=== PATIENT | male | born 1945 | race Caucasian/White ===

== ENCOUNTER → 2017-11-02 12:14 | Outpatient (CLI) | payer MEDICARE, SELFPAY | PROVIDERS: PCP Family Medicine; Visit Provider Physician Assistant | DX: R07.89 Other chest pain (principal) | CPT/HCPCS: 93005 ==

== ENCOUNTER → 2017-11-03 09:16 | Outpatient (CLI) | payer MEDICARE, SELFPAY ==
[2017-11-03 11:18] LABS: Alanine Aminotransferase 38 U/L (12-78); Albumin Level 3.8 gm/dL (3.4-5.0); Albumin/Globulin Ratio 1.2 (1.1-1.8); Alkaline Phosphatase 68 U/L (46-116); Anion Gap 12.7 mEq/L (5-15); Aspartate Amino Transferase 17 U/L (15-37); Bilirubin,Total 0.2 mg/dL (0.2-1.0); Blood Urea Nitrogen 22 mg/dL (7-18); Calcium 8.9 mg/dL (8.5-10.1); Carbon Dioxide 27 mmol/L (21.0-32.0); Chloride 104 mmol/L (98-107); Creatinine,Serum 1.04 mg/dL (0.70-1.30); Estimated Glomerular Filt Rate > 60 ml/min (>60); GFR (African American) > 60 ML/MIN (>60); Globulin 3.1 gm/dl (1.3-3.2); Glucose 103 mg/dL (74-106); Potassium 4.7 mmoL/L (3.5-5.1); Sodium 139 mmol/L (136-145); Total Protein,Serum 6.9 gm/dL (6.4-8.2)
[2017-11-03 14:06] LABS: Chol/HDL Ratio 5.4 (1-3.5); Cholesterol 172 mg/dL (140-200); HDL Cholesterol 32 mg/dL (27-67)
[2017-11-03 14:11] LABS: Triglycerides 422 mg/dL (30-200)
== END ==
PROVIDERS: PCP Physician Assistant; Visit Provider Physician Assistant
DX: E78.5 Hyperlipidemia, unspecified (principal)
CPT/HCPCS: 36415; 80053; 80061; 84443

== ENCOUNTER → 2017-11-05 12:34 | Outpatient (CLI) | payer MEDICARE, SELFPAY ==
--- NOTE | 2017-11-05 12:40 | CA_ITS ---
PROCEDURE: 2-D M-mode and color Doppler study INDICATIONS FOR THE TEST: Chest pain COPD Heart Murmur Tobacco Smoking Palpitations Fatigue Syncope Edema HypertensionXDiabetes Mellitus Rheumatic Fever SOB BAIG ObesityXHyperlipidemiaX Family History HD Additional History CM,MR PATIENT INFORMATION HEIGHT: 68 WEIGHT:232 GENDER: Male B/P:135/82 2-D/M-MODE INTERPRETATION: 2-D MEASUREMENTS OBSERVED VALUES IN CMS Right Ventricular Dimension (RVDd) 2.3 Interventricular Septum (Thickness)(IVsd) .9 Left Ventricular Internal Dimensions(LVIDd) 7.6 Left Ventricular Posterior Wall (Thickness)(LVPWd) .8 Aortic Root 3.7 Aortic Cusp Separation 1.7 Left Atrial Dimensions (LAD) 4.0 2D 1. Left atrium is mildly enlarged, left ventricle is normal size, there is mild qualitative concentric left ventricular hypertrophy present, visually estimated ejection fraction approximately 30%, there is marked abnormal septal motion. Left ventricle is globally hypokinetic. 2. The right atrium and right ventricle are normal size and contractility. 3. The aortic valve is minimally thickened and calcified leaflet continue to display good mobility. 4. The mitral and tricuspid valve leaflets are minimally thickened. 5. The pulmonic valve is poorly visualized. 6. No significant pericardial effusion noted. DOPPLER INTERROGATION: Doppler interrogation of the aortic, mitral and tricuspid valve reveals presence of mildly increased velocities across the aortic valve does not represent significant aortic stenosis, there is no aortic insufficiency, mild mitral and tricuspid regurgitation noted, tricuspid and jet velocity insufficient for cannulation of the right ventricular systolic pressure, grade 1 diastolic dysfunction seen without tissue Doppler evidence of raised left atrial pressure. CONCLUSION: 1. Mildly enlarged left atrium, normal left ventricular size, mild qualitative concentric left ventricular hypertrophy, visually estimated ejection fraction 30%, left ventricle is globally hypokinetic, there is marked abnormal septal motion. 2. Mild mitral and tricuspid regurgitation, tricuspid and jet velocity insufficient for acquisition of the right ventricular systolic pressure, grade 1 diastolic dysfunction seen without tissue Doppler evidence of raised left atrial pressure. 3. No significant pericardial effusion noted.
== END ==
PROVIDERS: PCP Family Medicine; Visit Provider Physician Assistant
DX: I34.0 Nonrheumatic mitral (valve) insufficiency; I42.8 Other cardiomyopathies
CPT/HCPCS: 93306

== ENCOUNTER → 2018-02-03 15:19 | Outpatient (CLI) | payer MEDICARE, SELFPAY ==
[2018-02-03 15:48] LABS: Basophils # 0.1 K/mm3 (0-0.2); Basophils % 0.4 % (0.1-2.0); Eosinophils # 0.1 K/mm3 (0.0-0.4); Eosinophils % 0.9 % (0.1-12.0); Hematocrit 41.8 % (42.0-52.0); Hemoglobin 13.6 g/dL (14.1-18.0); Lymphocytes % 21.5 K/mm3 (10-50); Mean Corpuscular HGB Conc 32.5 g/dL (31.8-35.4); Mean Corpuscular Hemoglobin 27.9 pg (27.0-31.2); Mean Corpuscular Volume 85.7 fl (80-94); Mean Platelet Volume 6.8 fl (7.4-10.4); Monocytes % 7.2 % (1.7-9.3); Neutrophils # 9.8 K/mm3 (1.8-7.8); Neutrophils % 69.9 % (37.0-80.0); Platelet Count 413 K/mm3 (142-424); Red Blood Count 4.87 M/mm3 (4.60-6.20); Red Cell Distribution Width 13.7 % (11.5-17.5); White Blood Count 13.9 K/mm3 (4.8-10.8)
[2018-02-03 18:28] LABS: Anion Gap 18.5 mEq/L (5-15); Blood Urea Nitrogen 26 mg/dL (7-18); Carbon Dioxide 21 mmol/L (21.0-32.0); Chloride 103 mmol/L (98-107); Creatinine,Serum 0.96 mg/dL (0.70-1.30); Estimated Glomerular Filt Rate 77 ml/min (>60); GFR (African American) 93 ML/MIN (>60); Glucose 113 mg/dL (74-106); Potassium 4.5 mmoL/L (3.5-5.1); Sodium 138 mmol/L (136-145)
== END ==
PROVIDERS: PCP Family Medicine; Visit Provider Otolaryngology
DX: Z01.818 Encounter for other preprocedural examination (principal); H72.91 Unspecified perforation of tympanic membrane, right ear; H65.06 Acute serous otitis media, recurrent, bilateral
CPT/HCPCS: 36415; 80048; 85025; 93005

== ENCOUNTER → 2019-05-29 09:47 | Outpatient (CLI) | payer MEDICARE, SELFPAY ==
--- NOTE | 2019-05-29 09:50 | CI_ITS ---
Cerebrovascular Exam Indications: Follow-up carotid 433.10. IMPRESSIONS 1. The bilateral vertebral arteries are patent with normal antegrade flow. 2. Study suggests less than 20% stenosis involving the right internal carotid artery. 3. Study suggests 20-49% stenosis involving the left internal carotid artery. History: Risk factors: Hypertension. Hyperlipidemia. Carotid duplex study. Complete study and Doppler flow study including spectral analysis, color and forte scale imaging. Height: Height: 172.7cm. Height: 68in. Weight: Weight: 108.4kg. Weight: 238.5lb. Body mass index: BMI: 36.3kg/m^2. Body surface area: BSA: 2.32m^2. Location: Vascular laboratory. Patient status: Outpatient. Tables: Arterial flow: + +--------+--------+ Location V sys V ed + +--------+--------+ Right CCA - proximal 82.5cm/s 15.7cm/s + +--------+--------+ Right CCA - distal 91.9cm/s 25.9cm/s + +--------+--------+ Right ECA 111cm/s 18cm/s + +--------+--------+ Right ICA - proximal 62.9cm/s 22.8cm/s + +--------+--------+ Right ICA - mid 62.1cm/s 33cm/s + +--------+--------+ Right ICA - distal 74.6cm/s 26.7cm/s + +--------+--------+ Right vertebral 34.8cm/s 14.8cm/s + +--------+--------+ Left CCA - proximal 90.4cm/s 24.4cm/s + +--------+--------+ Left CCA - distal 83cm/s 24.2cm/s + +--------+--------+ Left ECA 87.7cm/s 18.9cm/s + +--------+--------+ Left ICA - proximal 46.4cm/s 16.4cm/s + +--------+--------+ Left ICA - mid 68.7cm/s 28.2cm/s + +--------+--------+ Left ICA - distal 80.3cm/s 31.4cm/s + +--------+--------+ Left vertebral 49.7cm/s 20.1cm/s + +--------+--------+ Velocity ratios: + + + + + + Right, V sys Right, V ed Left, V sys Left, V ed + + + + + + Max ICA/dist CCA 0.81 1.27 0.97 1.3 + + + + + + (Report amended ) Electronically signed by: Clive Magana [id number]
--- NOTE | 2019-05-29 09:50 | CA_ITS ---
PROCEDURE: 2-D M-mode and color Doppler study INDICATIONS FOR THE TEST: Chest pain COPD Heart Murmur+ Tobacco SmokingEX Palpitations Fatigue+ Syncope Edema Hypertension+Diabetes Mellitus Rheumatic Fever SOB+BAIG Obesity+Hyperlipidemia+ Family History HD Additional History ABN EKG PATIENT INFORMATION HEIGHT: 68 WEIGHT:239 GENDER: Male B/P:112/69 2-D/M-MODE INTERPRETATION: 2-D MEASUREMENTS OBSERVED VALUES IN CMS Right Ventricular Dimension (RVDd) 2.5 Interventricular Septum (Thickness)(IVsd) 1.5 Left Ventricular Internal Dimensions(LVIDd) 6.0 Left Ventricular Posterior Wall (Thickness)(LVPWd) 1.1 Aortic Root 3.4 Aortic Cusp Separation 2.0 Left Atrial Dimensions (LAD) 4.5 2D 1. Left atrium is moderately enlarged, left ventricle is mildly dilated, mild concentric left ventricular hypertrophy, there is moderate to severe reduction in left ventricular systolic function, visually estimated ejection fraction approximately 35%, left ventricle is globally hypokinetic. 2. The right atrium and right ventricle are normal size and contractility. 3. The aortic valve is minimally thickened and fibrosed. 4. The mitral and tricuspid valve leaflets are minimally thickened. 5. The pulmonic valve is poorly visualized. 6. No significant pericardial effusion noted. DOPPLER INTERROGATION: Doppler interrogation of the aortic, mitral and tricuspid valvular presence of mild mitral and tricuspid regurgitation, tricuspid regurgitation jet velocity is inadequate for calculation of the right ventricular systolic pressure, grade 1 diastolic dysfunction seen with tissue Doppler evidence of raised left atrial pressure. CONCLUSION: 1. Moderately enlarged left atrium, dilated left ventricle, mild concentric left ventricular hypertrophy, moderate to severe reduction left ventricular systolic function, visually estimated ejection fraction 35% ventricle is globally hypokinetic, there is abnormal septal motion. Grade 1 diastolic dysfunction seen with tissue Doppler evidence of raised left atrial pressure. 2. Mild mitral and tricuspid regurgitation. 3. No significant pericardial effusion noted.
== END ==
PROVIDERS: PCP Family Medicine; Visit Provider Internal Medicine Cardiovascular Disease
DX: R09.89 Other specified symptoms and signs involving the circulatory and respiratory systems (principal); E66.9 Obesity, unspecified; E78.5 Hyperlipidemia, unspecified; I10 Essential (primary) hypertension; R94.31 Abnormal electrocardiogram [ECG] [EKG]; Z87.891 Personal history of nicotine dependence
CPT/HCPCS: 93306; 93880

== ENCOUNTER → 2019-06-19 12:33 | Outpatient (CLI) | payer MEDICARE, SELFPAY ==
--- NOTE | 2019-06-19 12:35 | NM_ITS ---
PROCEDURE: NM MUGA CLINICAL INDICATION: lv dysfunction ef 35% COMPARISON: No exams were available for comparison FINDINGS: Dose 24.8 mCi technetium sodium pertechnetate Gated images performed in the left anterior oblique position. There is global hypokinesia with an ejection fraction of 43 percent IMPRESSION: Global hypokinesia with an EF of 43 percent Dictated by: Clive Magana MD 06/21/2019 18:23 Signed by: <Electronically signed by Clive Magana MD in [place]> 06/21/2019 18:23
--- NOTE | 2019-06-19 13:56 | HMH.ITSHM ---
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 []POTASSIUM OMEPRAZOLE MONTELUKAST LISINOPRIL FUROSEMIDE FLUTICASONE ASA
== END ==
PROVIDERS: PCP Family Medicine; Visit Provider Internal Medicine
DX: I42.8 Other cardiomyopathies (principal); I51.89 Other ill-defined heart diseases; R06.01 Orthopnea; R06.02 Shortness of breath; R93.1 Abnormal findings on diagnostic imaging of heart and coronary circulation
CPT/HCPCS: 78473; A9512; A9560

== ENCOUNTER → 2019-06-23 08:00 | Outpatient (CLI) | payer MEDICARE, SELFPAY ==
[2019-06-23 10:39] LABS: Anion Gap 11.6 mEq/L (5-15); Blood Urea Nitrogen 26 mg/dL (7-18); Calcium 9.2 mg/dL (8.5-10.1); Carbon Dioxide 28 mmol/L (21.0-32.0); Chloride 104 mmol/L (98-107); Creatinine,Serum 1.31 mg/dL (0.70-1.30); Estimated Glomerular Filt Rate 53 ml/min (>60); GFR (African American) 65 ML/MIN (>60); Glucose 122 mg/dL (74-106); Potassium 4.6 mmoL/L (3.5-5.1); Sodium 139 mmol/L (136-145)
== END ==
PROVIDERS: Visit Provider Internal Medicine Cardiovascular Disease
DX: I42.8 Other cardiomyopathies (principal); I51.89 Other ill-defined heart diseases; R06.00 Dyspnea, unspecified; R06.01 Orthopnea; R93.1 Abnormal findings on diagnostic imaging of heart and coronary circulation
CPT/HCPCS: 36415; 80048; 83880

== ENCOUNTER → 2019-07-17 08:57 | Outpatient (CLI) | payer MEDICARE, SELFPAY ==
[2019-07-17 10:42] LABS: Anion Gap 12.7 mEq/L (5-15); Blood Urea Nitrogen 29 mg/dL (7-18); Calcium 9.1 mg/dL (8.5-10.1); Carbon Dioxide 29 mmol/L (21.0-32.0); Chloride 101 mmol/L (98-107); Estimated Glomerular Filt Rate 54 ml/min (>60); GFR (African American) 65 ML/MIN (>60); Glucose 108 mg/dL (74-106); Sodium 138 mmol/L (136-145)
[2019-07-17 10:46] LABS: Potassium 4.7 mmoL/L (3.5-5.1)
== END ==
PROVIDERS: Visit Provider Internal Medicine Cardiovascular Disease
DX: I42.8 Other cardiomyopathies (principal); I51.89 Other ill-defined heart diseases; I65.29 Occlusion and stenosis of unspecified carotid artery; R06.00 Dyspnea, unspecified; R93.1 Abnormal findings on diagnostic imaging of heart and coronary circulation
CPT/HCPCS: 36415; 80048

== ENCOUNTER → 2019-08-04 11:53 | Outpatient (CLI) | payer MEDICARE, SELFPAY ==
[2019-08-04 14:03] LABS: Anion Gap 14.2 mEq/L (5-15); Blood Urea Nitrogen 28 mg/dL (7-18); Calcium 8.6 mg/dL (8.5-10.1); Carbon Dioxide 26 mmol/L (21.0-32.0); Chloride 101 mmol/L (98-107); Creatinine,Serum 1.26 mg/dL (0.70-1.30); Estimated Glomerular Filt Rate 56 ml/min (>60); GFR (African American) 68 ML/MIN (>60); Glucose 122 mg/dL (74-106); Potassium 4.2 mmoL/L (3.5-5.1); Sodium 137 mmol/L (136-145)
== END ==
PROVIDERS: Physician Assistant; Visit Provider Internal Medicine Cardiovascular Disease
DX: I42.8 Other cardiomyopathies (principal); Z51.81 Encounter for therapeutic drug level monitoring; Z79.899 Other long term (current) drug therapy
CPT/HCPCS: 36415; 80048

== ENCOUNTER → 2019-12-21 11:25 | Outpatient (CLI) | payer MEDICARE, SELFPAY ==
--- NOTE | 2019-12-21 11:32 | XR_ITS ---
PROCEDURE: XR SHOULDER LT MIN 2V CLINICAL INDICATION: LT SHOULDER PAIN COMPARISON: No exams were available for comparison FINDINGS: There is no acute fracture or dislocation. Mild acromioclavicular and glenohumeral joint arthropathy is noted. IMPRESSION: Degenerative findings at the joints with no acute bone pathology. Dictated by: Kemar Zavala 12/21/2019 12:14 Electronically signed by Kemar Zavala in [place] 12/21/2019 12:14
== END ==
PROVIDERS: PCP Family Medicine; Visit Provider Family Medicine
DX: M25.512 Pain in left shoulder (principal)
CPT/HCPCS: 73030

== ENCOUNTER 2020-01-23 10:00 | Outpatient (RCR) | payer MEDICARE, SELFPAY ==
--- NOTE | 2020-01-16 10:57 | HMH.PTOPEV ---
PT Outpatient Evaluation Rehab PT Outpatient Evaluation Start: 01/16/20 09:49 Freq: Status: Active Protocol: Document 01/16/20 10:32 MISTY (Rec: 01/16/20 10:56 MISTY [id number]) Electronically Signed By Chavo Bran, PT 01/16/20 10:32 Outpatient Therapy Subjective History Subjective History Patient is a 74 year old male presenting to outpatient PT with reports of L anterior shoulder pain starting approximately 3 years ago in an accident involving B shoulder hyper extension in abduction. No previous Rx to report. Suspect possible L subscapularis tear. Most recent imaging indicates degenerative findings. Comorbidities include HTN, HLD , appendectomy, R knee scope and cholecystectomy. Chief Complaint Pain,Stiff,Weakness Symptom Type Sharp Symptoms Relieved By Rest/Positioning,OTC Meds Symptoms Aggravated By Physical Activity,Lifting Prior Functional Limitations None Current Functional Limitations Reaching,Lifting,Housework, Driving,Recreation Activity Symptom Description Constant but Variable Level of pain today (0-10) 8 Pain scale - at its best (0-10) 4 Pain scale - at its worst (0-10) 9 Shoulder/Elbow Eval Shoulder Objective Measurements Palpation Tenderness tenderness shoulder exam standard left tenderness over the bicipital tendon left shoulder exam standard Shoulder Palpation Findings Tenderness Shoulder Palpation Overall Comment L anterior shoulder/pec minor insertion Posture Shoulder Posture Sitting Position (L) Forward,(R) Forward Shoulder Posture Standing Position (L) Forward,(R) Forward Scapula Posture Sitting Position (L) Protracted,(R) Protracted Scapular Posture Standing Position (L) Protracted,(R) Protracted Shoulder ROM Left Shoulder Abduction Active Range of 82 Motion (degrees) Shoulder Abduction Passive Range of 91 Motion (degrees) Shoulder Flexion Active Range of Motion 89 (degrees) Query Text: Shoulder Flexion Passive Range of Motion 95 (degrees) Shoulder External Rotation Active Range 46 of Motion (degrees) Shoulder External Rotation Passive Range 50 of Motion (degrees) Shoulder Internal Rotation Active Range 70 of Motion (degrees) pain with active ROM shoulder exam left stand
== END 2020-01-23 10:05 | disposition home or self-care (01) ==
LOC: PT 10:00
PROVIDERS: Visit Provider Orthopaedic Surgery
DX: M25.512 Pain in left shoulder (principal)
CPT/HCPCS: 97010; 97014; 97163; G0283

== ENCOUNTER → 2020-03-01 09:20 | Outpatient (CLI) | payer MEDICARE, SELFPAY ==
--- NOTE | 2020-03-01 09:25 | XR_ITS ---
PROCEDURE: XR SHOULDER LT MIN 2V CLINICAL INDICATION: Shoulder pain Left shoulder pain COMPARISON: XR SHOULDER LT MIN 2V from 12/21/2019 FINDINGS: There are mild osteoarthritic changes of the glenohumeral joint and acromioclavicular joint with subacromial stenosis. No fracture or dislocation. 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
== END ==
PROVIDERS: PCP Family Medicine; Visit Provider Orthopaedic Surgery
DX: M19.012 Primary osteoarthritis, left shoulder; M67.912 Unspecified disorder of synovium and tendon, left shoulder
CPT/HCPCS: 73030

== ENCOUNTER → 2020-03-08 10:55 | Outpatient (CLI) | payer MEDICARE, SELFPAY ==
--- NOTE | 2020-03-08 10:55 | MR_ITS ---
PROCEDURE: MR SHOULDER LT WO CON CLINICAL INDICATION: left shoulder pain Injury with pain with limited range of motion COMPARISON: XR SHOULDER LT MIN 2V from 03/01/2020 TECHNIQUE: Routine multiplanar multi echo sequences are performed without gadolinium enhancement. FINDINGS: There is complete tear of the supraspinatus and infraspinatus tendons with retraction of the musculotendinous fibers with severe subacromial stenosis and mild superior location of the humeral head. The subacromial space measures 3 mm. The subscapularis and teres minor tendons appear intact. There may be a SLAP tear of the anterior glenoid labrum. Bicipital tendon is in place. No obvious fracture. There is a small shoulder joint effusion. Small amount of debris is present in the shoulder joint superiorly. IMPRESSION: Complete tear of the supraspinatus and infraspinatus tendons with retraction of the musculotendinous fibers and superior location of the humeral head Possible slap tear of the glenoid labrum Dictated by: Clive Magana MD 03/11/2020 13:17 Electronically signed by Clive Magana MD in [place] 03/11/2020 13:17
== END ==
PROVIDERS: PCP Family Medicine; Visit Provider Orthopaedic Surgery
DX: M67.912 Unspecified disorder of synovium and tendon, left shoulder (principal)
CPT/HCPCS: 73221

== ENCOUNTER → 2020-03-16 09:54 | Outpatient (CLI) | payer MEDICARE, SELFPAY ==
[2020-03-16 10:02] LABS: Adenovirus,PCR Not Detected (NotDetected); Bordetella Pertussis Not Detected (NotDetected); Chlamydophila Pneumoniae, PCR Not Detected (NotDetected); Coronavirus 19, PCR Not Detected (NotDetected); Coronavirus 229E Not Detected (NotDetected); Coronavirus NL63 Not Detected (NotDetected); Coronavirus OC43 Not Detected (NotDetected); Human Metapneumovirus Not Detected (NotDetected); Influenza A, PCR Not Detected (NotDetected); Influenza AH1, 2009 Not Detected (NotDetected); Influenza AH1, PCR Not Detected (NotDetected); Influenza AH3,PCR Not Detected (NotDetected); Influenza B, PCR Not Detected (NotDetected); Mycoplasma Pneumoniae, PCR Not Detected (NotDected); Parainfluenza 1, PCR Not Detected (NotDetected); Parainfluenza 2, PCR Not Detected (NotDetected); Parainfluenza 3, PCR Not Detected (NotDetected); Parainfluenza 4, PCR Not Detected (NotDetected); Respiratory Syncytial Virus Not Detected (NotDetected); Rhinovirus/Enterovirus Not Detected (NotDetected)
[2020-03-16 12:47] LABS: Coronovirus HKU1,PCR Detected (NotDetected)
--- NOTE | 2020-03-16 19:10 | PC.NURSE ---
spoke with Dr. Dubois regarding test results, positive for coronavirus HKU
== END ==
PROVIDERS: Visit Provider Internal Medicine Gastroenterology
DX: Z01.818 Encounter for other preprocedural examination (principal)
CPT/HCPCS: 87581; 87633; 87798

== ENCOUNTER 2020-03-18 10:02 | Day surgery (SDC) | payer MEDICARE, SELFPAY ==
--- NOTE | 2020-03-14 09:09 | SUR.PREOP ---
03/13/2020--PHONE CALL MADE TO PATIENT. PATIENT UNDERSTANDS THAT LAB WORK AND COVID TESTING NEEDS TO BE COMPLETED @ 830 ON 03/16/2020. PATIENT UNDERSTANDS IF LAB WORK AND COVID-19 TESTS ARE NOT COMPLETED BY 12PM ON THAT DATE, THE SURGERY SCHEDULED WILL BE CANCELLED AND RESCHEDULED FOR ANOTHER TIME.
[2020-03-14 14:37] VITALS: BMI 36.5
[2020-03-18] VITALS (7 sets, daily range): BP systolic 115–140; BP diastolic 67–87; PULSE 70–75; RESP 16; TEMP 36.4–36.5; O2SAT 95–97
--- NOTE | 2020-03-18 11:01 | SUR.OPER ---
IV #20 RIGHT A/C INFILTRATED. IV D/C BY Jun AYOUB CRNA. NEW IV STARTED BY Jorg eL MAYNARD RN #20 LEFT HAND. INFUSING WITHOUT DIFFICULTY.
--- NOTE | 2020-03-18 11:19 | P.PCN_ITS ---
[facility] Procedure Note Procedure Note:: Upper Endoscopy Procedure Report: Esophagogastroduodenoscopy with cold biopsies and TTS balloon dilation Endoscopost: Pito Dubois II, MD Referring Physician: Pranav Juarez MD Date of Procedure: March 18, 2020 Equipment: Olympus GIF 180 standard upper endoscope Sedation: MAC sedation Indications: Mr. Saul is a 74-year-old gentleman who is here for diagnostic panendoscopy. The patient had prior bright red rectal bleeding after having a bowel movement. This is bright red in nature. The patient has had longstanding GERD and he is on omeprazole. The omeprazole helps to control his heartburn, reflux, belching and dysphagia. He still gets some intermittent dysphagia. He reports no melena, bloating, abdominal pain or weight loss. This is his first upper endoscopy. Procedure: Prior to the procedure, a history and physical exam was performed, and patient's medications and allergies were reviewed. The risks, benefits and alternatives of the sedation and procedure were discussed with the patient. All questions were answered and informed consent was obtained. The patient was brought to the procedure room. Patient identification and proposed procedure were verified by the physician and the nurse. The patient was placed in a left lateral decubitus position and the scope was passed under direct vision. Throughout the procedure, the patient's blood pressure, pulse, and oxygen saturations were monitored continuously. The upper GI endoscopy was accomplished without difficulty. The patient tolerated the procedure well. Findings: The scope was passed directly into the upper esophagus and advanced to the third portion of the duodenum. The post bulbar duodenum and duodenal bulb were normal with normal mucosa and conniventes. The scope was withdrawn through a normal duodenal bulb and pylorus into the stomach. There was some mild chronic gastritis of the body and fundus. There was an umbilicated 6 mm nodule in the antrum that was biopsied to rule out a pancreatic rest and removed by cold biopsy forceps. Biopsies were taken from the lesser curvature and body of the stomach to rule out H. pylori. Upon retroflexion there was no hiatal hernia. The scope was then withdrawn into the esophagus. There was a serrated Z line and biopsies were taken distally to rule out intestinal metaplasia. There was a mid esophageal diverticulum. There were also very faint grade 1 esophageal varices. The entire esophagus was dilated to 60 Turkish/20 mm with a TTS hydrostatic balloon. There was mild esophageal dysmotility. The remainder of the esophageal mucosa was normal. Impression: 1. Nonerosive GERD with mild esophageal dysmotility and mid esophageal diverticulum 2. Faint grade 1 esophageal varices 3. Small 5 to 6 mm gastric antral nodule (rule out pancreatic rest) 4. Mild chronic gastritis Plan: There was no etiology for the patient's rectal bleeding. I will follow-up the biopsies. I would continue PPI therapy. I will recommend liver function/hepatic fibrotic markers. I will proceed with diagnostic colonoscopy.
--- NOTE | 2020-03-18 11:37 | P.PN_ITS ---
[facility] Anesthesia Checklist - Patient Identification Patient Identification: Arm Band, Verbal (Name & ) - Structural Data Admitted From: Home Planned Operative Procedure/s: EGD/colonoscopy Consent for Planned Operative Procedure(s) Verified: Yes Verified Documents: Surgical Consent, History and Physical - NPO Status Verified Time NPO: 00:00 - Chart Verification Results Verified: None - Additional verifications Anesthesia Reactions: No Hx Blood Transfusions: No Blood Transfusion Reaction: No - Airway Assessment C-Spine Mobility Assessed: Yes TMJ Mobility Assessed: Yes Dentition: Edentulous - Neurological Assessment Level of Consciousness: Awake, Alert, Appropriate, Follows Commands Hx Seizures: No Numbness or tingling in extremities: No - Anesthesia Plan Anesthesia Risk discussed: Yes Anesthesia Plan: Verified ASA Class: III Anesthesia Type: MAC [facility] History I have reviewed the patient's past medical history: Yes Medical History: Reports:: Cardiomyopathy, Coronary Artery Disease, Gastroesophageal Reflux Disease(GERD), Hyperlipidemia, Hypertension Denies:: Cancer, Diabetes Mellitus Type 1, Diabetes Mellitus Type 2, Internal Pacemaker, MRSA, Seizures *Have you ever received a pneumonia vaccine?: Yes *Have you received a flu vaccine this season?: Yes Other Medical History: Denies: Blood Transfusion Reaction Anesthesia experience/problems:: None Laterality Cases: Right: Arthroscopy Knee, Bilateral: Myringotomy (Ear Tubes) Other Surgeries: Yes: Appendectomy, Cardiac Catheterization, Cholecystectomy, Colonoscopy. No: Pacemaker Amputation: No Fractures: No - *Social History Educational Level: Completed High School Smoking Status: Never smoker #Yrs smoked (if former smoker): 50 Alcohol Intake: current Alcohol Intake Frequency:: a few times a month Substance Use Type: denies use *Occupational Status:: retired Housing: house Household Members: none *Travel in the last 8 weeks: None Family Hx:: No significant family history
--- NOTE | 2020-03-18 11:48 | HMH.PROC ---
[facility] Procedure Note Procedure Note:: Colonoscopy Procedure Report: Colonoscopy with cold snare polypectomy and hemorrhoid band ligation Endoscopist: Pito Dubois II, MD Referring physician: Pranav Juarez MD Date of Procedure: March 18, 2020 Equipment: Olympus 180 variable stiffness pediatric colonoscope Sedation: MAC sedation Indication: Mr. Saul is a 74-year-old gentleman with more recent bright red rectal bleeding. This often occurs after having bowel movements and the blood is both in the toilet bowl (striping the stool) and on the toilet tissue. He states that this may have been in relationship to 1 of his medications (carvedilol). He reports having colonoscopy 5 years ago at which time 4 polyps were removed (Dr. Adrian Puri). He reports no abdominal pain, weight loss, change in his bowel habits or family history of colon cancer. Procedure: Prior to the procedure, a history and physical exam was performed, and patient's medications and allergies were reviewed. The risks, benefits and alternatives of the sedation and procedure were discussed with the patient. All questions were answered and informed consent was obtained. The patient was brought to the procedure room. Patient identification and proposed procedure were verified by the physician and the nurse. The patient was placed in a left lateral decubitus position and the scope was passed under direct vision. Throughout the procedure, the patient's blood pressure, pulse, and oxygen saturations were monitored continuously. The colonoscopy was accomplished without difficulty. The patient tolerated the procedure well. Findings: On digital rectal examination there was normal rectal tone. There were no external hemorrhoids. The colonoscope was introduced through the anal canal to the rectum and advanced to the cecum. The ileocecal valve and appendiceal orifice were identified. The scope was advanced a short distance into the ileum which appeared grossly normal. The scope was then withdrawn into the colon. There were 4 polyps in the ascending (3, 3, 3 and 5 mm), 5 polyps in the transverse(2, 3, 3, 5 and 5 mm) and 4 polyps in the descending (3, 4, 4 and 6 mm). All of these polyps were removed via cold snare polypectomy. There was a mosaic pattern throughout the colon suggestive of possible lymphocytic colitis. There were scattered diverticuli throughout the descending and sigmoid colon (LEFT colon). The rectum itself was normal. Upon retroflexion within the rectum there were grade 2 internal hemorrhoids. 3 columns of hemorrhoids were banded using 3 bands with excellent ligation effect. The preparation was excellent throughout with [place] Preparation Score of 9. The cecal time was 19 minutes. Impression: 1. Diminutive colonic polyps x13 2. Left-sided diverticulosis 3. Grade 2 internal hemorrhoids status post band ligation x3 Plan: I will follow-up the polyp histology and recommend repeat screening/surveillance colonoscopy again in 1 year if all of the resected polyps are adenomatous. I would strongly encourage bulk fiber supplementation or fiber bowel regimen on a long-term daily maintenance basis.
[2020-03-18 13:16] LABS: Alanine Aminotransferase 33 U/L (12-78); Albumin Level 4.7 g/dl (3.5-5.0); Alkaline Phosphatase 66 U/L (38-126); Aspartate Amino Transferase 36 U/L (17-59); Bilirubin,Indirect 0.2 mg/dL (0.0-0.9); Bilirubin,Total 0.2 mg/dl (0.2-1.3); Bilirubin,Unconjugated 0.3 mg/dL (0.0-1.1); Total Protein,Serum 7.8 g/dl (6.3-8.2)
[2020-03-20 06:04] LABS: ALT (SGPT) P5P 29 IU/L (0-55); AST (SGOT) P5P 24 IU/L (0-40); Alpha 2-Macroglobulins, Qn 151 mg/dL (110-276); Apolipoprotein A-1 103 mg/dL (101-178); Bilirubin, Total 0.3 mg/dL (0.0-1.2); Cholesterol, Total 162 mg/dL (100-199); Fibrosis Score 0.28 (0.00-0.21); GGT 41 IU/L (0-65); Glucose 101 mg/dL (65-99); Haptoglobin 171 mg/dL (34-355); Steatosis Score 0.86 (0.00-0.30); Triglycerides 423 mg/dL (0-149)
== END 2020-03-18 12:47 | disposition home or self-care (01) ==
LOC: OUTP 10:03
PROVIDERS: PCP Family Medicine; Visit Provider Internal Medicine Gastroenterology
PROC: 0DJ08ZZ Inspection of Upper Intestinal Tract, Via Natural or Artificial Opening Endoscopic (ICD-10-PCS; CPT 43235; principal; 2020-03-18 11:30)
DX: R13.10 Dysphagia, unspecified (principal); K62.5 Hemorrhage of anus and rectum; K64.1 Second degree hemorrhoids; K22.2 Esophageal obstruction; I85.00 Esophageal varices without bleeding; K22.5 Diverticulum of esophagus, acquired; K57.30 Diverticulosis of large intestine without perforation or abscess without bleeding; Z87.19 Personal history of other diseases of the digestive system; D49.0 Neoplasm of unspecified behavior of digestive system; K29.50 Unspecified chronic gastritis without bleeding; I10 Essential (primary) hypertension; I25.10 Atherosclerotic heart disease of native coronary artery without angina pectoris; K21.9 Gastro-esophageal reflux disease without esophagitis
CPT/HCPCS: 43239; 43249; 45385; 45398; 36415; 80076; 88305; 88342; C1726

== ENCOUNTER → 2020-03-22 09:53 | Outpatient (CLI) | payer MEDICARE, SELFPAY ==
[2020-03-22 11:47] LABS: Alanine Aminotransferase 29 U/L (12-78); Aspartate Amino Transferase 27 U/L (17-59); Bilirubin,Unconjugated 0.1 mg/dL (0.0-1.1)
[2020-03-22 11:48] LABS: Albumin Level 4.3 g/dl (3.5-5.0); Alkaline Phosphatase 81 U/L (38-126); Bilirubin,Direct 0.3 mg/dl (0.0-0.4); Bilirubin,Indirect 0.1 mg/dL (0.0-0.9); Bilirubin,Total 0.4 mg/dl (0.2-1.3); Chol/HDL Ratio 3.7 (1-3.5); Cholesterol 128 mg/dl (140-200); HDL Cholesterol 35 mg/dl (40-60); Total Protein,Serum 7.1 g/dl (6.3-8.2); Triglycerides 337 mg/dl (30-150); VLDL Cholesterol 67 mg/dL (0-40)
[2020-03-22 11:59] LABS: Direct LDL Cholesterol 72.12 mg/dL (100-129)
== END ==
PROVIDERS: Visit Provider Internal Medicine Cardiovascular Disease
DX: E78.2 Mixed hyperlipidemia (principal); I10 Essential (primary) hypertension; I42.8 Other cardiomyopathies; I65.23 Occlusion and stenosis of bilateral carotid arteries; R09.89 Other specified symptoms and signs involving the circulatory and respiratory systems
CPT/HCPCS: 36415; 80061; 80076

== ENCOUNTER → 2020-03-27 10:34 | Outpatient (CLI) | payer MEDICARE, SELFPAY ==
--- NOTE | 2020-03-27 10:41 | CA_ITS ---
APPROVED REPORT Criminal Investigative Agent: Marli Fernandez RVT Laterality: Bilateral Study Quality: Good Indications: Bruit, Carotid stenosis Risk Factors Hypertension: Hyperlipidemia Doppler Spectral Velocity Analysis ECA (R) 104.70/16.80 cm/s ECA (L) 100.60/17.30 cm/s dICA (R) 51.50/25.70 cm/s dICA (L) 74.60/32.30 cm/s Yariel (R) 55.40/18.50 cm/s Yariel (L) 67.90/29.40 cm/s pICA (R) 96.30/15.10 cm/s pICA (L) 66.40/19.70 cm/s dCCA (R) 85.10/23.50 cm/s dCCA (L) 76.20/28.50 cm/s pCCA (R) 113.70/22.50 cm/s pCCA (L) 97.90/24.00 cm/s Vert (R) 39.70/11.20 cm/s Vert (L) 42.50/14.60 cm/s ICA/CCA 1.13 ICA/CCA 0.98 Findings Study suggests less than 20% stenosis of the right internal cartoid artery unchanged from the 05/29/19 study. Study suggests 20-49% stenosis of the left internal cartoid artery unchanged from the 05/29/19 study. Antegrade flow seen bilateral vertebral arteries. Conclusion Study suggests less than 20% stenosis of the right internal cartoid artery unchanged from the 05/29/19 study. Study suggests 20-49% stenosis of the left internal cartoid artery unchanged from the 05/29/19 study. Antegrade flow seen bilateral vertebral arteries. Electronically signed by : Clive Magana MD 03/28/2020 16:38:56
== END ==
PROVIDERS: PCP Family Medicine; Visit Provider Internal Medicine Cardiovascular Disease
DX: E78.2 Mixed hyperlipidemia (principal); I10 Essential (primary) hypertension; I42.8 Other cardiomyopathies; I65.23 Occlusion and stenosis of bilateral carotid arteries; R09.89 Other specified symptoms and signs involving the circulatory and respiratory systems
CPT/HCPCS: 93880

== ENCOUNTER 2020-12-28 12:55 | Inpatient (IN) | payer MEDICARE, SELFPAY ==
[2020-12-28] VITALS (9 sets, daily range): BP systolic 115–145; BP diastolic 70–92; PULSE 74–87; RESP 16–22; TEMP 36.7–37.7; O2SAT 80–98; BMI 37.2; BMI 37.1
--- NOTE | 2020-12-28 13:03 | ECG_ITS ---
APPROVED REPORT Exam: Resting ECG HR:77 bpm ECG Measurements Heart Rate 77 AXES [place] 184 P -26 QRSd 156 QRS -52 QT 438 T 95 QTc 495 Conclusion Sinus rhythm with occasional premature ventricular complexes Left axis deviation Left bundle branch block Abnormal ECG Electronically signed by : Pranav Airas, 12/30/2020 06:45:52
--- NOTE | 2020-12-28 13:21 | XR_ITS ---
PROCEDURE: XR CHEST PORTABLE CLINICAL HISTORY: SOA COMPARISON: CR CXR CHEST(2 VIEWS-NOT PORTABLE) from 08/30/2014 CR CXR CHEST(2 VIEWS-NOT PORTABLE) from 01/31/2016 FINDINGS: There is cardiomegaly without failure. The lower lobes are somewhat under penetrated. There is pneumonia in the right mid and lower lung zone and possibly in the left lower lobe. No obvious effusion. The lung apices are clear. No acute bony abnormalities. IMPRESSION: Bilateral pneumonia Dictated by: Clive Magana MD 12/29/2020 07:37 Clive Magana MD in [place] 12/29/2020 07:37
[2020-12-28 13:28] LABS: Adenovirus,PCR Not Detected (NotDetected); Bordetella Pertussis Not Detected (NotDetected); Chlamydophila Pneumoniae, PCR Not Detected (NotDetected); Coronavirus 229E Not Detected (NotDetected); Coronavirus NL63 Not Detected (NotDetected); Coronavirus OC43 Not Detected (NotDetected); Coronovirus HKU1,PCR Not Detected (NotDetected); Human Metapneumovirus Not Detected (NotDetected); Influenza A, PCR Not Detected (NotDetected); Influenza AH1, 2009 Not Detected (NotDetected); Influenza AH1, PCR Not Detected (NotDetected); Influenza AH3,PCR Not Detected (NotDetected); Influenza B, PCR Not Detected (NotDetected); Mycoplasma Pneumoniae, PCR Not Detected (NotDetected); Parainfluenza 1, PCR Not Detected (NotDetected); Parainfluenza 2, PCR Not Detected (NotDetected); Parainfluenza 3, PCR Not Detected (NotDetected); Parainfluenza 4, PCR Not Detected (NotDetected); Respiratory Syncytial Virus Not Detected (NotDetected); Rhinovirus/Enterovirus Not Detected (NotDetected)
[2020-12-28 13:33] LABS: Basophils % 0.6 % (0.1-2.0); Eosinophils % 0.5 % (0.1-12.0); Hematocrit 40.3 % (42.0-52.0); Hemoglobin 13.2 g/dL (14.1-18.0); Lymphocytes # 1.6 K/mm3 (0.7-4.5); Lymphocytes % 22.9 % (10-50); Mean Corpuscular HGB Conc 32.8 g/dL (31.8-35.4); Mean Corpuscular Hemoglobin 25.7 pg (27.0-31.2); Mean Corpuscular Volume 78.2 fl (80-94); Mean Platelet Volume 6.9 fl (7.4-10.4); Monocytes # 0.7 K/mm3 (0.1-1.0); Monocytes % 9.6 % (1.7-9.3); Neutrophils # 4.5 K/mm3 (1.8-7.8); Neutrophils % 66.4 % (37.0-80.0); Platelet Count 246 K/mm3 (142-424); Red Blood Count 5.16 M/mm3 (4.60-6.20); Red Cell Distribution Width 15.9 % (11.5-17.5); White Blood Count 6.8 K/mm3 (4.8-10.8)
[2020-12-28 13:37] LABS: Anion Gap 15.9 mEq/L (5-15); Blood Urea Nitrogen 21 mg/dl (9-20); Calcium 9.1 mg/dl (8.4-10.2); Carbon Dioxide 25 mmol/L (22.0-30.0); Chloride 98 mmol/L (98-107); Creatinine Clearance Estimated 90 mL/min (50-200); Estimated Glomerular Filt Rate 65 ml/min (>60); GFR (African American) 79 ML/MIN (>60); Glucose 127 mg/dl (74-100); Potassium 3.9 mmoL/L (3.5-5.1); Sodium 135 mmol/L (136-145)
[2020-12-28 13:38] LABS: Lactic Acid 1.6 mmol/L (0.7-2.1)
[2020-12-28 13:43] LABS: C-Reactive Protein 54.2 mg/L (0-4)
[2020-12-28 13:51] LABS: Troponin I 0.03 ng/ml (0.00-0.034)
--- NOTE | 2020-12-28 13:55 | HMH.EDSOB ---
ED Disposition Clinical Impression: COVID-19 virus infection, Left bundle branch block (LBBB), Obesity (BMI 30-39.9) Respiratory failure, acute Qualifiers: Respiratory failure complication: hypoxia Qualified Code(s): J96.01 - Acute respiratory failure with hypoxia Disposition: Admitted As Inpatient Condition on Discharge: Good - Critical Care Critical Care Time: No Attestation: On 12/28/20, the high probability of a clinically significant, sudden or life threatening deterioration of the following system(s) required my full and direct attention, intervention and personal management. The time I documented below is in addition to time spent performing reported procedures but includes the following listed in this critical care notation. Medical Decision Making - Medical Records Medical records reviewed: Yes: I reviewed the patient's medical records. - Mathew Inquiry Pt receiving controlled substance: No Vital Signs: 12/28/20 12:56 12/28/20 13:26 12/28/20 14:09 Temperature 99.9 F H Temperature Source Oral Pulse Rate [Right] 78 80 86 Respiratory Rate 20 18 20 Blood Pressure [Right Arm] 143/74 H 126/83 127/86 Blood Pressure Mean [Right Arm] 97 97 99 Blood Pressure Source [Right Arm] Automatic Cuff Automatic Cuff Blood Pressure Position [Right Arm] Sitting Sitting 02 Sat by Pulse Oximetry 80 L 98 96 Oxygen Delivery Method Room Air Nasal Cannula Oxygen Flow Rate (LPM) 4 12/28/20 14:41 12/28/20 15:30 12/28/20 16:11 Temperature Temperature Source Pulse Rate [Right] 77 76 74 Respiratory Rate 20 18 20 Blood Pressure [Right Arm] 140/86 131/87 127/87 Blood Pressure Mean [Right Arm] 104 101 100 Blood Pressure Source [Right Arm] Automatic Cuff Blood Pressure Position [Right Arm] Supine 02 Sat by Pulse Oximetry 98 98 96 Oxygen Delivery Method Room Air Nasal Cannula Oxygen Flow Rate (LPM) 4 - Lab Data Lab results reviewed: Yes: I reviewed the patient's lab results. Lab Results 12/28/20 13:15: WBC 6.8, RBC 5.16, Hgb 13.2 L, Hct 40.3 L, MCV 78.2 L, MCH 25.7 L, MCHC 32.8, RDW 15.9, Plt Count 246, MPV 6.9 L, Neut % (Auto) 66.4, Lymph % (Auto) 22.9, [place] % (Auto) 9.6 H, Eos % (Auto) 0.5, Baso % (Auto) 0.6, Neut # (Auto) 4.5, Lymph # (Auto) 1.6, [place] # (Auto) 0.7, Eos # (Auto) 0.0, Baso # (Auto) 0.0, ESR 23 H 12/28/20 13:15: Sodium 135 L, Potassium 3.9, Chloride 98, Carbon Dioxide 25, Anion Gap 15.9 H, BUN 21 H, Creatinine 1.10, Estimated Creat Clear 90, Estimated GFR 65, Est GFR ( Amer) 79, Glucose 127 H, Calcium 9.1, Troponin I 0.03, C-Reactive Protein 54.2 H 12/28/20 13:15: Lactate 1.6 12/28/20 13:15: Chlamy pneumoniae PCR Not detected, Adenovirus (PCR) Not detected, B. pertussis DNA (PCR) Not detected, Coronavirus OC43 (PCR) Not detected, Coronavirus HKU1 (PCR) Not detected, Coronavirus 229E (PCR) Not detected, SARS-CoV-2 (PCR) Detected A, Coronavirus NL63 (PCR) Not detected, Human Metapneumovir PCR Not detected, Influenza A (H1) PCR Not detected, Influ A (H1N1/09) PCR Not detected, Influenza A (H3) PCR Not detected, Influenza Type A (PCR) Not detected, Influenza Type B (PCR) Not detected, M. pneumoniae (PCR) Not detected, Parainfluenza 1 (PCR) Not detected, Parainfluenza 2 (PCR) Not detected, Parainfluenza 3 (PCR) Not detected, Parainfluenza 4 (PCR) Not detected, RSV (PCR) Not detected, Entero/Rhino (PCR) Not detected 12/28/20 13:15: Sodium 133 L, Potassium 4.3, Chloride 98, Carbon Dioxide 25, Anion Gap 14.3, BUN 23 H, Creatinine 1.00, Estimated Creat Clear 99, Estimated GFR 73, Est GFR ( Amer) 88, Glucose 124 H, Calcium 9.1, Total Bilirubin 0.7, AST 38, ALT 31, Alkaline Phosphatase 75, Total Protein 7.2, Albumin 4.2, Globulin 3.0, Albumin/Globulin Ratio 1.4 Result diagrams: 12/28/20 13:15 12/28/20 13:15 Orders (Tests/Meds): ED MEDICATIONS Generic Name Dose Route Start Last Admin Trade Name Freq PRN Reason Stop Dose Admin Acetaminophen 650 mg 12/28/20 15:34 Acetaminophen 32
[2020-12-28 14:02] LABS: Erythrocyte Sedimentation Rate 23 mm/hr (0-20)
[2020-12-28 15:05] LABS: Coronavirus 19, PCR Detected (NotDetected)
[2020-12-28 15:59] LABS: Chloride 98 mmol/L (98-107); Potassium 4.3 mmoL/L (3.5-5.1); Sodium 133 mmol/L (136-145)
[2020-12-28 16:02] LABS: Alanine Aminotransferase 31 U/L (12-78); Albumin Level 4.2 g/dl (3.5-5.0); Albumin/Globulin Ratio 1.4 (1.1-1.8); Alkaline Phosphatase 75 U/L (38-126); Anion Gap 14.3 mEq/L (5-15); Aspartate Amino Transferase 38 U/L (17-59); Bilirubin,Total 0.7 mg/dl (0.2-1.3); Blood Urea Nitrogen 23 mg/dl (9-20); Calcium 9.1 mg/dl (8.4-10.2); Carbon Dioxide 25 mmol/L (22.0-30.0); Creatinine Clearance Estimated 99 mL/min (50-200); Estimated Glomerular Filt Rate 73 ml/min (>60); GFR (African American) 88 ML/MIN (>60); Glucose 124 mg/dl (74-100); Total Protein,Serum 7.2 g/dl (6.3-8.2)
--- NOTE | 2020-12-28 16:02 | PC.NURSE ---
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
[2020-12-28 18:15] LABS: Troponin I < 0.01 ng/ml (0.00-0.034)
[2020-12-28 21:03] LABS: Troponin I 0.03 ng/ml (0.00-0.034)
--- NOTE | 2020-12-28 21:16 | PC.NURSE ---
MD notified of pt not able to identify which medication he took today. MD also notified of discrepancy of medication metoprolol succinate on dec. Reported that pt became soa and desat to 83% upon ambulating to [facility] [place]. O2 increased to 6L NC temporarily while pt recovered. He is currently on 4.5 L NC. During episode pt was noted to have trigeminal PVC's. MD aware. New orders: hold Lisinopril tonight.
[2020-12-29] VITALS (14 sets, daily range): BP systolic 124–147; BP diastolic 70–78; PULSE 60–91; RESP 16–23; TEMP 36.2–36.7; O2SAT 91–95; BMI 37.0
--- NOTE | 2020-12-29 04:32 | PC.NURSE ---
No acute changes since last assessment. Pt is currently on 3.5 L O2 NC with sats ranging 92-95%. Pt gets soa and desats to low 80s with any exertion. Oxygen is titrated to 6L for faster recovery. Pt has had 550 cc output and 2 unmeasured voids. He has had 2 liquid stools this shift. He ambulates to [facility] with standby assistance and uses urinal. VS remain stable. He is currently afebrile. BBB on telemetry with PVC's. Call light within reach. No other concerns. Will continue to monitor.
[2020-12-29 06:50] LABS: Basophils % 0.7 % (0.1-2.0); Hematocrit 36.2 % (42.0-52.0); Hemoglobin 11.9 g/dL (14.1-18.0); Lymphocytes # 1.2 K/mm3 (0.7-4.5); Lymphocytes % 30.7 % (10-50); Mean Corpuscular HGB Conc 32.8 g/dL (31.8-35.4); Mean Corpuscular Hemoglobin 25.7 pg (27.0-31.2); Mean Corpuscular Volume 78.4 fl (80-94); Mean Platelet Volume 7.4 fl (7.4-10.4); Monocytes # 0.4 K/mm3 (0.1-1.0); Monocytes % 9.5 % (1.7-9.3); Neutrophils # 2.3 K/mm3 (1.8-7.8); Neutrophils % 59.1 % (37.0-80.0); Platelet Count 252 K/mm3 (142-424); Red Blood Count 4.61 M/mm3 (4.60-6.20); Red Cell Distribution Width 15.9 % (11.5-17.5); White Blood Count 3.9 K/mm3 (4.8-10.8)
[2020-12-29 06:55] LABS: Chloride 105 mmol/L (98-107); Potassium 4.3 mmoL/L (3.5-5.1); Sodium 137 mmol/L (136-145)
[2020-12-29 06:58] LABS: Anion Gap 13.3 mEq/L (5-15); Blood Urea Nitrogen 23 mg/dl (9-20); Calcium 8.9 mg/dl (8.4-10.2); Carbon Dioxide 23 mmol/L (22.0-30.0); Creatinine Clearance Estimated 98 mL/min (50-200); Estimated Glomerular Filt Rate 82 ml/min (>60); GFR (African American) 99 ML/MIN (>60); Glucose 148 mg/dl (74-100)
[2020-12-29 06:59] LABS: Magnesium 1.7 mg/dl (1.6-2.3)
--- NOTE | 2020-12-29 08:14 | HMH.HP ---
*Admission Date: 12/28/20 *Chief complaint: SOA, covid *History of present illness: Mr. Saul is a 75 yo M with Hx of HTN, heart failure with reduced ejection fraction, carotid bruits, obesity, and previous extensive smoking Hx. He presented to the ER yesterday with c/o SOA, cough, body aches for the past week with 3 days of increased SOA. On arrival he was found to be hypoxic and in respiratory distress. On Work-up he had labs, chest imaging, and respiratory swab obtained. Chest imaging positive for multifocal patchy air space disease. Respiratory panel positive for Covid-19. He has a new O2 requirement. Denies chest pain, nausea, vomiting. Admitted to medicine for further management of his Covid pneumonia. Placed in the isolation unit. On assessment this morning, patient feels a little short of breath but is very optimistic and upbeat. Denies any chest pain, confusion, headache, nausea or vomiting. Does have complaint of some diarrhea this morning. Tolerating good p.o. fluid intake. Afebrile today. Voiding independently. Has used incentive spirometer this morning, commended him on this and encouraged more aggressive pulmonary toilet. CODE STATUS discussion, patient is full code. [facility] History I have reviewed the patient's past medical history: Yes Medical History: Reports:: Cardiomyopathy, Congestive Heart Failure, Coronary Artery Disease, Gastroesophageal Reflux Disease(GERD), Hyperlipidemia, Hypertension Denies:: Cancer, Diabetes Mellitus Type 1, Diabetes Mellitus Type 2, Internal Pacemaker, MRSA, Seizures *Have you ever received a pneumonia vaccine?: Yes *Have you received a flu vaccine this season?: Yes Other Medical History: Denies: Blood Transfusion Reaction Laterality Cases: Right: Arthroscopy Knee, Bilateral: Cataract, Myringotomy (Ear Tubes), Tonsillectomy Other Surgeries: Yes: No Previous Surgery, Appendectomy, Cardiac Catheterization, Cholecystectomy, Colonoscopy. No: Pacemaker Amputation: No Fractures: No - *Social History Last grade of school completed: 7th or 8th Smoking Status: Never smoker #Yrs smoked (if former smoker): 50 Alcohol Intake: current Alcohol Intake Frequency:: a few times a week Substance Use Type: denies use *Occupational Status:: disabled Housing: house Household Members: none *Travel in the last 8 weeks: None Family Hx:: No significant family history Review of Systems - Review of Systems Review of systems:: pertinent systems reviewed and negative unless documented below (14 point review of systems performed, pertinent positives and negatives as per HPI) - *Neurologic Denies localized weakness, Denies headache(s), Denies seizure-like activity Meds Home Medications Medication Instructions Recorded Confirmed Type fluticasone propionate 50 50 mcg INTRANASAL DAILY 90 Days 01/28/18 12/28/20 History mcg/actuation nasal spray,suspension montelukast 10 mg tablet 10 mg PO DAILY 90 Days 01/28/18 12/28/20 History lisinopril 20 mg tablet 20 mg PO BID 90 Days #180 tab 11/03/19 12/28/20 History rosuvastatin 20 mg tablet 20 mg PO DAILY tab 11/03/19 12/28/20 History Omeprazole [Omeprazole 20mg 20 mg PO DAILY 01/01/20 12/28/20 History Capsule] celecoxib 200 mg capsule 200 mg PO DAILY 01/11/20 12/28/20 History meloxicam 15 mg tablet 15 mg PO DAILY 01/11/20 12/28/20 History aspirin 81 mg tablet,delayed 81 mg PO .twice weekly PRN tab 03/22/20 12/28/20 History release furosemide 20 mg tablet 40 mg PO DAILY PRN tab 03/22/20 12/28/20 History Metoprolol Succinate [Metoprolol See Rx Instructions .ROUTE .COMPLEX 12/28/20 12/28/20 History Succinate 25mg Tablet*] Potassium Chloride [Pot Chlor 8 See Rx Instructions .ROUTE .COMPLEX 12/28/20 12/28/20 History mEq Cap] Allergies Allergy/AdvReac Type Severity Reaction Status Date / Time Penicillins Allergy Verified 05/08/20 12:56 Exam Vital signs and Labs for Last 24 Hours: Temp Pulse Resp BP Pulse Ox 97.1 F L 77
--- NOTE | 2020-12-29 11:37 | PC.NURSE ---
During rounds it was advised by that patient be moved to a room with a toilet to encourage ambulation. Also directed to stop patients ns infusion following his current bag of saline and to begin breathing treatments. Additionally it was advised to start patient on a venti mask as he breathes through his mouth and his oxygenation demands have increased. Advised patient to continue using the incentive spirometer on patients bedside table. Following rounds patient was moved to a larger ICU room. Patient attempted to ambulate but was very weak when he stood so it was decided to ambulate via wheelchair with portable oxygen. Once in new room patient sat in his recliner for a few hours before deciding that he was tired and would like to sleep. Yulisa is now resting, still on 30% venti mask and oxygenation at 92%.
--- NOTE | 2020-12-29 15:06 | P.CONPHA_ITS ---
[facility] Pharmacy VTE Monitoring - Patient Demographics Admission date: 12/29/20 Report Date: 12/29/20 Time: 15:06 Allergies/Adverse Reactions: Patient Allergies Penicillins Allergy (Verified 05/08/20 12:56) Height: 1.73 m Weight: 110.705 kg Patient Problems: Current Active Problems COVID-19 virus infection (Acute) Respiratory failure, acute (Acute) Left bundle branch block (LBBB) (Acute) Obesity (BMI 30-39.9) (Acute) Acute hypoxemic respiratory failure due to COVID-19 (Acute) Obesity, Class II, BMI 35-39.9 (Acute) CHF (congestive heart failure), NYHA class II (Chronic) Nonischemic cardiomyopathy (Chronic) HLD (hyperlipidemia) (Chronic) HTN (hypertension) (Chronic) - VTE Risk Labs: VTE Related Lab Results Hgb 11.9 g/dL (14.1-18.0) L 12/29/20 05:55 Hct 36.2 % (42.0-52.0) L 12/29/20 05:55 Plt Count 252 K/mm3 (142-424) 12/29/20 05:55 BUN 23 mg/dl (9-20) H 12/29/20 05:55 Creatinine 0.90 mg/dl (0.66-1.25) 12/29/20 05:55 Estimated Creat Clear 98 mL/min (50-200) 12/29/20 05:55 Was VTE Risk Assessment Performed: Yes VTE Score: 2 VTE Risk Level: Very Low Risk - Prophylaxis Types of VTE Prophylaxis: Pharmacological Location of Applied Device: Refused Pharmacologic Type: Enoxaparin (LOVENOX ORDERED)
--- NOTE | 2020-12-29 18:08 | PC.NURSE ---
Patient is currently resting in recliner. Neurologically patient is oriented x 4. Has been in good spirits and pleasant throughout the day. Cardiac gross patient is ns with pvc's and a bbb. blood pressure has been normal-slightly hypertensive (147/96, systolic max of 160). Betablocker restarted today. Lisinopril continues. Patient has tolerated them both well. Skin c/d/i. GI patient has has 1 large watery bm today. Appetite is good, has eaten 75% of meals today. Patient is still on the ventimask at 30% . Will switch to 5L nc while eating. Patient desat's to low to mid 80's when ambulating. Is very weak when standing, assist x 1. Patient sat in his recliner for a few hours today but became very tired and asked to go to bed. Patient rested on his side with a pillow to position him and his oxygenation was 95%. Patient is continually reminded and encouraged to us IS with proper instruction and has been witnessed using the IS independently as well. patient is pursing lips with exertion. Breathes though his mouth predominantly. IV fluids discontinued per md request. Will continue to monitor
[2020-12-30] VITALS (13 sets, daily range): BP systolic 106–142; BP diastolic 64–88; PULSE 60–80; RESP 15–20; TEMP 36.5–37.1; O2SAT 90–97; BMI 37.3; BMI 37.4
[2020-12-30 06:43] LABS: Basophils % 0.4 % (0.1-2.0); Hematocrit 36.8 % (42.0-52.0); Lymphocytes # 1.7 K/mm3 (0.7-4.5); Lymphocytes % 16.3 % (10-50); Mean Corpuscular HGB Conc 32.5 g/dL (31.8-35.4); Mean Corpuscular Hemoglobin 25.5 pg (27.0-31.2); Mean Corpuscular Volume 78.5 fl (80-94); Mean Platelet Volume 7.1 fl (7.4-10.4); Monocytes % 9.6 % (1.7-9.3); Neutrophils # 7.9 K/mm3 (1.8-7.8); Neutrophils % 73.7 % (37.0-80.0); Platelet Count 336 K/mm3 (142-424); Red Blood Count 4.69 M/mm3 (4.60-6.20); White Blood Count 10.7 K/mm3 (4.8-10.8)
[2020-12-30 06:48] LABS: Chloride 107 mmol/L (98-107); Potassium 4.3 mmoL/L (3.5-5.1); Sodium 139 mmol/L (136-145)
[2020-12-30 06:50] LABS: Blood Urea Nitrogen 30 mg/dl (9-20); Creatinine Clearance Estimated 99 mL/min (50-200); Estimated Glomerular Filt Rate 73 ml/min (>60); GFR (African American) 88 ML/MIN (>60)
--- NOTE | 2020-12-30 06:50 | HMH.ACPN2 ---
Internal Medicine - PN: Subj *Date: 12/30/20 *Time: 06:50 Interval history: Patient reports feeling better. Cough is nonproductive. He has dyspnea with exertion. Staff reports decrease in O2 sats to the mid 80s with ambulating to the bathroom. However patient has been stable with use of the 50% Ventimask. Exam Vital signs and Labs for Last 24 Hours: Temp Pulse Resp BP Pulse Ox 98.8 F 73 15 122/73 97 12/30/20 04:00 12/30/20 06:25 12/30/20 04:00 12/30/20 04:00 12/30/20 06:25 Laboratory Results - last 24 hr 12/29/20 05:55: WBC 3.9 L D, RBC 4.61, Hgb 11.9 L, Hct 36.2 L, MCV 78.4 L, MCH 25.7 L, MCHC 32.8, RDW 15.9, Plt Count 252, MPV 7.4, Neut % (Auto) 59.1, Lymph % (Auto) 30.7, [place] % (Auto) 9.5 H, Eos % (Auto) 0.0 L, Baso % (Auto) 0.7, Neut # (Auto) 2.3, Lymph # (Auto) 1.2, [place] # (Auto) 0.4, Eos # (Auto) 0.0, Baso # (Auto) 0.0 12/29/20 05:55: Sodium 137, Potassium 4.3, Chloride 105, Carbon Dioxide 23, Anion Gap 13.3, BUN 23 H, Creatinine 0.90, Estimated Creat Clear 98, Estimated GFR 82, Est GFR ( Amer) 99, Glucose 148 H, Calcium 8.9, Magnesium 1.7 I & O for Last 24 hours: Intake & Output 12/27/20 12/28/20 12/29/20 12/30/20 11:59 11:59 11:59 11:59 Intake Total 2513 / 2513 1210 / 1210 Output Total 550 / 550 603 / 603 Balance 1962 / 1962 607 / 607 Weight 244 lb 1 oz 246 lb 2 oz - Constitutional no acute distress, obese - *Routine Respiratory Exam Present: wheezes (end expiratory) - *Routine Cardiovascular Exam Present: RRR, Normal S1, Normal S2 - *Routine Abdominal Exam Present: soft, normoactive bowel sounds. Absent: tenderness - *Routine Extremities Exam Absent: cyanosis, clubbing, edema Assessment and Plan (1) Acute hypoxemic respiratory failure due to COVID-19 Status: Acute Category: Medical Code(s): U07.1 - COVID-19; J96.01 - Acute respiratory failure with hypoxia (2) Obesity, Class II, BMI 35-39.9 Status: Acute Category: Medical Code(s): E66.9 - Obesity, unspecified (3) Left bundle branch block (LBBB) Status: Acute Category: Medical Code(s): I44.7 - Left bundle-branch block, unspecified (4) HLD (hyperlipidemia) Status: Chronic Qualifiers: Hyperlipidemia type: mixed hyperlipidemia Qualified Code(s): E78.2 - Mixed hyperlipidemia Category: Medical Code(s): E78.5 - Hyperlipidemia, unspecified (5) HTN (hypertension) Status: Chronic Qualifiers: Hypertension type: essential hypertension Qualified Code(s): I10 - Essential (primary) hypertension Category: Medical Code(s): I10 - Essential (primary) hypertension (6) Nonischemic cardiomyopathy Status: Chronic Category: Medical Code(s): I42.8 - Other cardiomyopathies (7) CHF (congestive heart failure), NYHA class II Status: Chronic Qualifiers: Congestive heart failure type: combined Congestive heart failure chronicity: chronic Qualified Code(s): I50.42 - Chronic combined systolic (congestive) and diastolic (congestive) heart failure Category: Medical Code(s): I50.9 - Heart failure, unspecified (8) Viral pneumonia Status: Acute Category: Medical Code(s): J12.9 - Viral pneumonia, unspecified (9) COVID-19 virus infection Status: Acute Category: Medical Code(s): U07.1 - COVID-19 - Assessment and plan all Dx Assessment and Plan for all problems:: 1. Continue supplemental oxygen provided by a Ventimask. Goal O2 sats are 92% or greater 2. Continue remdesivir, dexamethasone, nutritional supplementation. 3. Echocardiogram today to assess LV function in a patient with nonischemic cardiomyopathy 4. Continue aerosols for wheezing 5. Activity as tolerated within the room
--- NOTE | 2020-12-30 06:50 | PC.NURSE ---
Patient rested well throughout the night. Patient is currently on 50% venturi mask reading mid 90s. Patient gets SOA when ambulating to bathroom and back to bed, and O2 drops to mid 80s. Breath sounds diminished; patient has cough but not productive enough to produce a sample. Patient knows sputum is needed and cup at bedside. Patient using incentive spriometer while awake.
[2020-12-30 06:51] LABS: Alanine Aminotransferase 30 U/L (12-78); Albumin Level 3.7 g/dl (3.5-5.0); Albumin/Globulin Ratio 1.2 (1.1-1.8); Alkaline Phosphatase 62 U/L (38-126); Anion Gap 12.3 mEq/L (5-15); Aspartate Amino Transferase 30 U/L (17-59); Bilirubin,Total 0.3 mg/dl (0.2-1.3); Calcium 8.9 mg/dl (8.4-10.2); Carbon Dioxide 24 mmol/L (22.0-30.0); Globulin 3.2 g/dL (1.3-3.2); Glucose 124 mg/dl (74-100); Magnesium 1.9 mg/dl (1.6-2.3); Total Protein,Serum 6.9 g/dl (6.3-8.2)
--- NOTE | 2020-12-30 08:28 | PC.NURSE ---
PT PLACED ON 6LNC AT 0820 O2 CURRENTLY 93%.
--- NOTE | 2020-12-30 16:46 | PC.NURSE ---
was able to titrate pt o2 need down to 3lnc, currently pt is 93%. pt has had no complaints of pain or soa today. pt has ambulated t/o room independently. pt uses IS appropriately. pt has bbb on tele. vss. will cont. to monitor.
--- NOTE | 2020-12-30 19:22 | PC.NURSE ---
pt ambulated to bed, pt desat to 86-87% o2 increased to 4LNC. pt recovered to 92-93% quickly.
[2020-12-31] VITALS (11 sets, daily range): BP systolic 116–134; BP diastolic 61–83; PULSE 60–90; RESP 18–20; TEMP 36.7–36.9; O2SAT 91–96; BMI 37.4
--- NOTE | 2020-12-31 04:09 | PC.NURSE ---
Pt has been pleasant and cooperative this shift. A&O X4. No complaints of pain or SOA. Pt is currently receiving O2 via NC @ 4 LPM with sats. >90%. Lung sounds reveal scattered wheezing. Telemetry shows NSR with a BBB. No edema noted. Skin is C/D/I. Pt ambulates independently to/from the bathroom and throughout the room. Pt also uses the urinal to void clear, yellow urine without issue. No BM this shift. 20 G peripheral IV in the LT forearm is patent and SL. VSS. Call light within reach. Will continue to monitor.
[2020-12-31 05:27] LABS: Basophils % 0.2 % (0.1-2.0); Eosinophils % 0.1 % (0.1-12.0); Hemoglobin 12.2 g/dL (14.1-18.0); Lymphocytes # 1.6 K/mm3 (0.7-4.5); Mean Corpuscular HGB Conc 32.2 g/dL (31.8-35.4); Mean Corpuscular Hemoglobin 25.3 pg (27.0-31.2); Mean Corpuscular Volume 78.5 fl (80-94); Mean Platelet Volume 7.3 fl (7.4-10.4); Monocytes # 0.8 K/mm3 (0.1-1.0); Monocytes % 7.2 % (1.7-9.3); Neutrophils % 78.6 % (37.0-80.0); Platelet Count 403 K/mm3 (142-424); Red Blood Count 4.84 M/mm3 (4.60-6.20); Red Cell Distribution Width 16.1 % (11.5-17.5); White Blood Count 11.5 K/mm3 (4.8-10.8)
[2020-12-31 05:34] LABS: Alanine Aminotransferase 32 U/L (12-78); Albumin Level 3.8 g/dl (3.5-5.0); Albumin/Globulin Ratio 1.2 (1.1-1.8); Alkaline Phosphatase 64 U/L (38-126); Anion Gap 9.9 mEq/L (5-15); Aspartate Amino Transferase 27 U/L (17-59); Bilirubin,Total 0.3 mg/dl (0.2-1.3); Blood Urea Nitrogen 30 mg/dl (9-20); Calcium 8.9 mg/dl (8.4-10.2); Carbon Dioxide 26 mmol/L (22.0-30.0); Chloride 107 mmol/L (98-107); Creatinine Clearance Estimated 91 mL/min (50-200); Estimated Glomerular Filt Rate 65 ml/min (>60); GFR (African American) 79 ML/MIN (>60); Globulin 3.1 g/dL (1.3-3.2); Glucose 145 mg/dl (74-100); Potassium 3.9 mmoL/L (3.5-5.1); Sodium 139 mmol/L (136-145); Total Protein,Serum 6.9 g/dl (6.3-8.2)
--- NOTE | 2020-12-31 06:48 | HMH.ACPN2 ---
Internal Medicine - PN: Subj *Date: 12/31/20 *Time: 06:48 Interval history: Patient reports he is feeling better today. Currently O2 sats are in the high 90s on 4 L of oxygen via nasal cannula. Exam Vital signs and Labs for Last 24 Hours: Temp Pulse Resp BP Pulse Ox 98.4 F 66 19 116/83 96 12/31/20 04:00 12/31/20 06:10 12/31/20 04:00 12/31/20 04:00 12/31/20 06:10 Laboratory Results - last 24 hr 12/30/20 06:25: WBC 10.7 D, RBC 4.69, Hgb 12.0 L, Hct 36.8 L, MCV 78.5 L, MCH 25.5 L, MCHC 32.5, RDW 16.0, Plt Count 336 D, MPV 7.1 L, Neut % (Auto) 73.7, Lymph % (Auto) 16.3, [place] % (Auto) 9.6 H, Eos % (Auto) 0.0 L, Baso % (Auto) 0.4, Neut # (Auto) 7.9 H, Lymph # (Auto) 1.7, [place] # (Auto) 1.0, Eos # (Auto) 0.0, Baso # (Auto) 0.0 12/30/20 06:25: Sodium 139, Potassium 4.3, Chloride 107, Carbon Dioxide 24, Anion Gap 12.3, BUN 30 H D, Creatinine 1.00, Estimated Creat Clear 99, Estimated GFR 73, Est GFR ( Amer) 88, Glucose 124 H, Calcium 8.9, Magnesium 1.9 D, Total Bilirubin 0.3, AST 30, ALT 30, Alkaline Phosphatase 62, Total Protein 6.9, Albumin 3.7, Globulin 3.2, Albumin/Globulin Ratio 1.2 12/31/20 05:00: WBC 11.5 H, RBC 4.84, Hgb 12.2 L, Hct 38.0 L, MCV 78.5 L, MCH 25.3 L, MCHC 32.2, RDW 16.1, Plt Count 403, MPV 7.3 L, Neut % (Auto) 78.6, Lymph % (Auto) 14.0, [place] % (Auto) 7.2, Eos % (Auto) 0.1, Baso % (Auto) 0.2, Neut # (Auto) 9.0 H, Lymph # (Auto) 1.6, [place] # (Auto) 0.8, Eos # (Auto) 0.0, Baso # (Auto) 0.0 12/31/20 05:00: Sodium 139, Potassium 3.9, Chloride 107, Carbon Dioxide 26, Anion Gap 9.9, BUN 30 H, Creatinine 1.10, Estimated Creat Clear 91, Estimated GFR 65, Est GFR ( Amer) 79, Glucose 145 H, Calcium 8.9, Magnesium 2.0, Total Bilirubin 0.3, AST 27, ALT 32, Alkaline Phosphatase 64, Total Protein 6.9, Albumin 3.8, Globulin 3.1, Albumin/Globulin Ratio 1.2 I & O for Last 24 hours: Intake & Output 12/28/20 12/29/20 12/30/20 12/31/20 11:59 11:59 11:59 11:59 Intake Total 2513 / 2513 1690 / 1690 1080 / 1080 Output Total 550 / 550 603 / 603 1100 / 1100 Balance 1962 / 1962 1087 / 1087 -20 / -20 Weight 244 lb 1 oz 246 lb 14.684 oz 247 lb 0.003 oz Microbiology Reports for the Last 24 Hours: Microbiology 12/28/20 13:15 Blood Blood Culture - Preliminary NO GROWTH AFTER 48 HOURS 12/28/20 13:15 Blood Blood Culture - Preliminary NO GROWTH AFTER 48 HOURS - Constitutional no acute distress - *Routine Respiratory Exam Comments: Rhonchi right lateral lung - *Routine Cardiovascular Exam Present: RRR - *Routine Abdominal Exam Present: soft, normoactive bowel sounds. Absent: tenderness Assessment and Plan (1) Acute hypoxemic respiratory failure due to COVID-19 Status: Acute Category: Medical Code(s): U07.1 - COVID-19; J96.01 - Acute respiratory failure with hypoxia (2) Obesity, Class II, BMI 35-39.9 Status: Acute Category: Medical Code(s): E66.9 - Obesity, unspecified (3) Left bundle branch block (LBBB) Status: Acute Category: Medical Code(s): I44.7 - Left bundle-branch block, unspecified (4) HLD (hyperlipidemia) Status: Chronic Qualifiers: Hyperlipidemia type: mixed hyperlipidemia Qualified Code(s): E78.2 - Mixed hyperlipidemia Category: Medical Code(s): E78.5 - Hyperlipidemia, unspecified (5) HTN (hypertension) Status: Chronic Qualifiers: Hypertension type: essential hypertension Qualified Code(s): I10 - Essential (primary) hypertension Category: Medical Code(s): I10 - Essential (primary) hypertension (6) Nonischemic cardiomyopathy Status: Chronic Category: Medical Code(s): I42.8 - Other cardiomyopathies (7) CHF (congestive heart failure), NYHA class II Status: Chronic Qualifiers: Congestive heart failure type: combined Congestive heart failure chronicity: chronic Qualified Code(s): I50.42 - Chronic combined systolic (congestive) and diastoli
--- NOTE | 2020-12-31 17:27 | PC.NURSE ---
no acute changes noted this shift. pt remains on 4LNC. no c/o SOA. vss.
[2021-01-01] VITALS (12 sets, daily range): BP systolic 103–150; BP diastolic 61–84; PULSE 60–95; RESP 18–19; TEMP 36.1–36.9; O2SAT 90–98; BMI 37.4
--- NOTE | 2021-01-01 04:20 | PC.NURSE ---
Pt has been pleasant and cooperative this shift. A&O X4. No complaints of pain or SOA. Pt is currently receiving O2 via NC @ 4 LPM with sats. >90%. Lung sounds are diminished with scattered wheezing. Telemetry shows NSR with a BBB. No edema noted. Skin is C/D/I. Pt uses the urinal to void clear, yellow urine without issue. No BM this shift. 20 G peripheral IV in the LT forearm is patent and SL. VSS. Call light within reach. Will continue to monitor.
[2021-01-01 06:23] LABS: Basophils % 0.2 % (0.1-2.0); Eosinophils % 0.2 % (0.1-12.0); Hematocrit 37.7 % (42.0-52.0); Hemoglobin 12.2 g/dL (14.1-18.0); Lymphocytes # 1.9 K/mm3 (0.7-4.5); Lymphocytes % 13.7 % (10-50); Mean Corpuscular HGB Conc 32.2 g/dL (31.8-35.4); Mean Corpuscular Hemoglobin 25.4 pg (27.0-31.2); Mean Corpuscular Volume 78.9 fl (80-94); Mean Platelet Volume 7.1 fl (7.4-10.4); Monocytes # 1.3 K/mm3 (0.1-1.0); Monocytes % 9.2 % (1.7-9.3); Neutrophils # 10.7 K/mm3 (1.8-7.8); Neutrophils % 76.6 % (37.0-80.0); Platelet Count 394 K/mm3 (142-424); Red Blood Count 4.78 M/mm3 (4.60-6.20); Red Cell Distribution Width 16.3 % (11.5-17.5); White Blood Count 13.9 K/mm3 (4.8-10.8)
[2021-01-01 06:49] LABS: Alanine Aminotransferase 31 U/L (12-78); Albumin Level 3.4 g/dl (3.5-5.0); Albumin/Globulin Ratio 1.1 (1.1-1.8); Alkaline Phosphatase 58 U/L (38-126); Anion Gap 11.2 mEq/L (5-15); Aspartate Amino Transferase 28 U/L (17-59); Bilirubin,Total 0.4 mg/dl (0.2-1.3); Blood Urea Nitrogen 35 mg/dl (9-20); Calcium 8.7 mg/dl (8.4-10.2); Carbon Dioxide 27 mmol/L (22.0-30.0); Chloride 104 mmol/L (98-107); Creatinine Clearance Estimated 91 mL/min (50-200); Estimated Glomerular Filt Rate 65 ml/min (>60); GFR (African American) 79 ML/MIN (>60); Globulin 3.1 g/dL (1.3-3.2); Glucose 91 mg/dl (74-100); Magnesium 1.9 mg/dl (1.6-2.3); Potassium 4.2 mmoL/L (3.5-5.1); Sodium 138 mmol/L (136-145); Total Protein,Serum 6.5 g/dl (6.3-8.2)
--- NOTE | 2021-01-01 06:59 | HMH.ACPN2 ---
Internal Medicine - PN: Subj *Date: 01/01/21 *Time: 06:59 Interval history: Patient has no complaints this morning. He continues to feel better daily. He reports improvement in his shortness of breath. Currently he admits to wheezing but has just finished his a.m. aerosol. Exam Vital signs and Labs for Last 24 Hours: Temp Pulse Resp BP Pulse Ox 98.2 F 88 18 112/71 97 01/01/21 04:00 01/01/21 06:20 01/01/21 04:00 01/01/21 04:00 01/01/21 06:20 Laboratory Results - last 24 hr 01/01/21 05:30: WBC 13.9 H, RBC 4.78, Hgb 12.2 L, Hct 37.7 L, MCV 78.9 L, MCH 25.4 L, MCHC 32.2, RDW 16.3, Plt Count 394, MPV 7.1 L, Neut % (Auto) 76.6, Lymph % (Auto) 13.7, [place] % (Auto) 9.2, Eos % (Auto) 0.2, Baso % (Auto) 0.2, Neut # (Auto) 10.7 H, Lymph # (Auto) 1.9, [place] # (Auto) 1.3 H, Eos # (Auto) 0.0, Baso # (Auto) 0.0 01/01/21 05:30: Sodium 138, Potassium 4.2, Chloride 104, Carbon Dioxide 27, Anion Gap 11.2, BUN 35 H, Creatinine 1.10, Estimated Creat Clear 91, Estimated GFR 65, Est GFR ( Amer) 79, Glucose 91, Calcium 8.7, Magnesium 1.9, Total Bilirubin 0.4, AST 28, ALT 31, Alkaline Phosphatase 58, Total Protein 6.5, Albumin 3.4 L D, Globulin 3.1, Albumin/Globulin Ratio 1.1 I & O for Last 24 hours: Intake & Output 12/29/20 12/30/20 12/31/20 01/01/21 11:59 11:59 11:59 11:59 Intake Total 2513 / 2513 1690 / 1690 1800 / 1800 360 / 360 Output Total 550 / 550 603 / 603 1300 / 1300 1050 / 1050 Balance 1962 / 1962 1087 / 1087 500 / 500 -690 / -690 Weight 244 lb 1 oz 246 lb 14.684 oz 247 lb 0.003 oz 246 lb 15.989 oz Narrative: Patient looks comfortable with no increased work of breathing. Lung exam reveals diffuse expiratory wheezes. Patient has good aeration with basilar rhonchi right more so than left. Abdomen is soft, nontender and obese. Assessment and Plan (1) Acute hypoxemic respiratory failure due to COVID-19 Status: Acute Category: Medical Code(s): U07.1 - COVID-19; J96.01 - Acute respiratory failure with hypoxia (2) Obesity, Class II, BMI 35-39.9 Status: Acute Category: Medical Code(s): E66.9 - Obesity, unspecified (3) Left bundle branch block (LBBB) Status: Acute Category: Medical Code(s): I44.7 - Left bundle-branch block, unspecified (4) HLD (hyperlipidemia) Status: Chronic Qualifiers: Hyperlipidemia type: mixed hyperlipidemia Qualified Code(s): E78.2 - Mixed hyperlipidemia Category: Medical Code(s): E78.5 - Hyperlipidemia, unspecified (5) HTN (hypertension) Status: Chronic Qualifiers: Hypertension type: essential hypertension Qualified Code(s): I10 - Essential (primary) hypertension Category: Medical Code(s): I10 - Essential (primary) hypertension (6) Nonischemic cardiomyopathy Status: Chronic Category: Medical Code(s): I42.8 - Other cardiomyopathies (7) CHF (congestive heart failure), NYHA class II Status: Chronic Qualifiers: Congestive heart failure type: combined Congestive heart failure chronicity: chronic Qualified Code(s): I50.42 - Chronic combined systolic (congestive) and diastolic (congestive) heart failure Category: Medical Code(s): I50.9 - Heart failure, unspecified (8) Viral pneumonia Status: Acute Category: Medical Code(s): J12.9 - Viral pneumonia, unspecified (9) COVID-19 virus infection Status: Acute Category: Medical Code(s): U07.1 - COVID-19 - Assessment and plan all Dx Assessment and Plan for all problems:: 1. Continue remdesivir and dexamethasone-day 4 2. Encourage patient to ambulate. Add incentive spirometry. Continue aerosols.
--- NOTE | 2021-01-01 14:44 | PC.NURSE ---
Attempted to obtain sputum sample but patient unable to produce. Sputum cup at bedside.
--- NOTE | 2021-01-01 17:16 | DIET.NUTRFU ---
PO intakes 100%. Weight has remained stable, no edema noted. Pt had diarrhea through the and has not had a BM since. Pt on no added salt diet rt CHF, continuing to monitor
--- NOTE | 2021-01-01 17:55 | PC.NURSE ---
Pt alert and oriented x4. Right lung reyes with wheezes throughout, wheezes noted to GABRIELA's. He remains on 4L NC with O2 sats mainly in the mid-upper 90's. He desats to the low 80's with ambulation or exertion and reports getting SOB. He rebounds quickly back to the 90's at rest. He has an occasional dry cough. He has been up to the chair most of the shift and tolerated well. Appetite is good with him eating 100% of meals. He has been NSR w/IVCD and PVC's/PAC's on telemetry. He shaved and had a bed bath with complete linen change this shift. Denies pain. IV to LFA infiltrated. Pharmacy notified with no interventions recommended. New IV to RFA started. He has no questions or concerns at this time. Will continue to monitor.
[2021-01-02] VITALS (11 sets, daily range): BP systolic 101–116; BP diastolic 54–71; PULSE 60–76; RESP 16–21; TEMP 36.2–36.6; O2SAT 91–99; BMI 38.5
--- NOTE | 2021-01-02 04:19 | PC.NURSE ---
Pt has been pleasant and cooperative this shift. A&O X4. No complaints of pain or SOA. Pt is currently receiving O2 via NC @ 4 LPM with sats. >90%. Lung sounds are diminished with scattered wheezing. Telemetry shows NSR with a BBB and occasional PVC's. No edema noted. Skin is C/D/I. Pt uses the urinal to void clear, yellow urine without issue. No BM this shift. 20 G peripheral IV in the LT upper arm is patent and SL. VSS. Call light within reach. Will continue to monitor.
[2021-01-02 06:57] LABS: Basophils % 0.3 % (0.1-2.0); Eosinophils # 0.1 K/mm3 (0.0-0.4); Eosinophils % 0.6 % (0.1-12.0); Hematocrit 36.9 % (42.0-52.0); Hemoglobin 11.7 g/dL (14.1-18.0); Lymphocytes # 1.9 K/mm3 (0.7-4.5); Lymphocytes % 16.2 % (10-50); Mean Corpuscular HGB Conc 31.6 g/dL (31.8-35.4); Mean Corpuscular Hemoglobin 25.7 pg (27.0-31.2); Mean Corpuscular Volume 81.3 fl (80-94); Monocytes # 1.3 K/mm3 (0.1-1.0); Monocytes % 10.9 % (1.7-9.3); Neutrophils # 8.4 K/mm3 (1.8-7.8); Platelet Count 400 K/mm3 (142-424); Red Blood Count 4.54 M/mm3 (4.60-6.20); Red Cell Distribution Width 16.2 % (11.5-17.5); White Blood Count 11.7 K/mm3 (4.8-10.8)
--- NOTE | 2021-01-02 07:20 | HMH.ACPN2 ---
Internal Medicine - PN: Subj *Date: 01/02/21 *Time: 07:20 Interval history: Patient reports significant shortness of breath with activity but that has not worsened over the last 24 hours. Staff reports same although patient's O2 sats are maintained in the 90s on oxygen at 4 L/min. Exam Vital signs and Labs for Last 24 Hours: Temp Pulse Resp BP Pulse Ox 97.1 F L 61 18 102/66 L 95 01/02/21 04:00 01/02/21 06:42 01/02/21 04:00 01/02/21 04:00 01/02/21 06:42 Laboratory Results - last 24 hr 01/02/21 05:40: WBC 11.7 H, RBC 4.54 L, Hgb 11.7 L, Hct 36.9 L, MCV 81.3, MCH 25.7 L, MCHC 31.6 L, RDW 16.2, Plt Count 400, MPV 8.0, Neut % (Auto) 72.0, Lymph % (Auto) 16.2, [place] % (Auto) 10.9 H, Eos % (Auto) 0.6, Baso % (Auto) 0.3, Neut # (Auto) 8.4 H, Lymph # (Auto) 1.9, [place] # (Auto) 1.3 H, Eos # (Auto) 0.1, Baso # (Auto) 0.0 I & O for Last 24 hours: Intake & Output 12/30/20 12/31/20 01/01/21 01/02/21 11:59 11:59 11:59 11:59 Intake Total 1690 / 1690 1800 / 1800 840 / 840 1060 / 1060 Output Total 603 / 603 1300 / 1300 1050 / 1050 1100 / 1100 Balance 1087 / 1087 500 / 500 -210 / -210 -40 / -40 Weight 246 lb 14.684 oz 247 lb 0.003 oz 246 lb 15.989 oz 253 lb 15.56 oz Narrative: Patient looks comfortable. He is receiving a breathing treatment. Lungs are diminished posteriorly in the bases. He has some scattered wheezes. Heart has a regular rate and rhythm. Abdomen is obese and soft. Assessment and Plan (1) Acute hypoxemic respiratory failure due to COVID-19 Status: Acute Category: Medical Code(s): U07.1 - COVID-19; J96.01 - Acute respiratory failure with hypoxia (2) Obesity, Class II, BMI 35-39.9 Status: Acute Category: Medical Code(s): E66.9 - Obesity, unspecified (3) Left bundle branch block (LBBB) Status: Acute Category: Medical Code(s): I44.7 - Left bundle-branch block, unspecified (4) HLD (hyperlipidemia) Status: Chronic Qualifiers: Hyperlipidemia type: mixed hyperlipidemia Qualified Code(s): E78.2 - Mixed hyperlipidemia Category: Medical Code(s): E78.5 - Hyperlipidemia, unspecified (5) HTN (hypertension) Status: Chronic Qualifiers: Hypertension type: essential hypertension Qualified Code(s): I10 - Essential (primary) hypertension Category: Medical Code(s): I10 - Essential (primary) hypertension (6) Nonischemic cardiomyopathy Status: Chronic Category: Medical Code(s): I42.8 - Other cardiomyopathies (7) CHF (congestive heart failure), NYHA class II Status: Chronic Qualifiers: Congestive heart failure type: combined Congestive heart failure chronicity: chronic Qualified Code(s): I50.42 - Chronic combined systolic (congestive) and diastolic (congestive) heart failure Category: Medical Code(s): I50.9 - Heart failure, unspecified (8) Viral pneumonia Status: Acute Category: Medical Code(s): J12.9 - Viral pneumonia, unspecified (9) COVID-19 virus infection Status: Acute Category: Medical Code(s): U07.1 - COVID-19 - Assessment and plan all Dx Assessment and Plan for all problems:: 1. Continue remdesivir and dexamethasone day 5. Attempt to wean oxygen to 3 L/min 2. Adjust antihypertensives due to hypotension this morning.
[2021-01-02 07:53] LABS: Anion Gap 12.3 mEq/L (5-15); Blood Urea Nitrogen 34 mg/dl (9-20); Calcium 8.6 mg/dl (8.4-10.2); Carbon Dioxide 27 mmol/L (22.0-30.0); Chloride 104 mmol/L (98-107); Creatinine Clearance Estimated 93 mL/min (50-200); Estimated Glomerular Filt Rate 65 ml/min (>60); GFR (African American) 79 ML/MIN (>60); Glucose 88 mg/dl (74-100); Potassium 4.3 mmoL/L (3.5-5.1); Sodium 139 mmol/L (136-145)
[2021-01-02 07:57] LABS: C-Reactive Protein 8.4 mg/L (0-4)
[2021-01-02 08:10] LABS: Procalcitonin 0.056 ng/mL (0.0-2.0)
--- NOTE | 2021-01-02 15:25 | PC.NURSE ---
Alert and oriented x4. Lungs with wheezes throughout. He is currently on 3L NC with O2 sats in the mid 90's. He gets short of breath with exertion. He has ambulated to the bathroom with standby assist. Appetite has been good. He's complained that I just don't feel good today . He states nothing in particular, he just doesn't feel good. Denies pain. He has a dry, non productive cough. Unable to obtain sputum sample, specimen cup at bedside. Instructed on use of incentive spirometer. Will continue to monitor.
[2021-01-03] VITALS (11 sets, daily range): BP systolic 106–127; BP diastolic 57–82; PULSE 60–98; RESP 12–22; TEMP 36.3–37; O2SAT 91–95; BMI 37.6; BMI 37.3
--- NOTE | 2021-01-03 01:12 | PC.NURSE ---
No acute changes. Pt is currently sleeping at this time. VSS. He remains on 3L O2 NC. Lungs noted to have inspiratory and expiratory wheezing t/o upon assessment. Breathing Tx administered per via RT. Pt c/o gastric discomfort early in shift. No additional complaints. Pt has turned and repositioned self from (R) to (L) side. Unable to lie in prone position. Medications administered per dec. Call light within reach. No other concerns at this time.
[2021-01-03 06:50] LABS: Basophils # 0.1 K/mm3 (0-0.2); Basophils % 0.5 % (0.1-2.0); Eosinophils # 0.1 K/mm3 (0.0-0.4); Eosinophils % 0.6 % (0.1-12.0); Hematocrit 38.4 % (42.0-52.0); Hemoglobin 12.3 g/dL (14.1-18.0); Lymphocytes # 1.7 K/mm3 (0.7-4.5); Lymphocytes % 12.8 % (10-50); Mean Corpuscular Hemoglobin 25.8 pg (27.0-31.2); Mean Corpuscular Volume 80.5 fl (80-94); Mean Platelet Volume 6.9 fl (7.4-10.4); Monocytes # 1.3 K/mm3 (0.1-1.0); Monocytes % 9.6 % (1.7-9.3); Neutrophils # 10.3 K/mm3 (1.8-7.8); Neutrophils % 76.6 % (37.0-80.0); Platelet Count 419 K/mm3 (142-424); Red Blood Count 4.77 M/mm3 (4.60-6.20); Red Cell Distribution Width 16.1 % (11.5-17.5); White Blood Count 13.5 K/mm3 (4.8-10.8)
--- NOTE | 2021-01-03 07:06 | HMH.ACPN2 ---
Internal Medicine - PN: Subj *Date: 01/03/21 *Time: 07:06 Interval history: Patient continues to be dyspneic on exertion but continues to feels a little better each day. He is maintained sats on 3 L/min for the last 24 hours. Patient continues to get nebs which he notes improvement after each neb Exam Vital signs and Labs for Last 24 Hours: Temp Pulse Resp BP Pulse Ox 97.4 F L 98 H 12 120/72 95 01/03/21 04:00 01/03/21 06:38 01/03/21 04:00 01/03/21 04:00 01/03/21 06:38 Laboratory Results - last 24 hr 01/02/21 05:40: Magnesium 2.0, C-Reactive Protein 8.4 H, Procalcitonin 0.056 01/02/21 05:40: Sodium 139, Potassium 4.3, Chloride 104, Carbon Dioxide 27, Anion Gap 12.3, BUN 34 H, Creatinine 1.10, Estimated Creat Clear 93, Estimated GFR 65, Est GFR ( Amer) 79, Glucose 88, Calcium 8.6 01/03/21 05:45: WBC 13.5 H, RBC 4.77, Hgb 12.3 L, Hct 38.4 L, MCV 80.5, MCH 25.8 L, MCHC 32.0, RDW 16.1, Plt Count 419, MPV 6.9 L, Neut % (Auto) 76.6, Lymph % (Auto) 12.8, [place] % (Auto) 9.6 H, Eos % (Auto) 0.6, Baso % (Auto) 0.5, Neut # (Auto) 10.3 H, Lymph # (Auto) 1.7, [place] # (Auto) 1.3 H, Eos # (Auto) 0.1, Baso # (Auto) 0.1 I & O for Last 24 hours: Intake & Output 12/31/20 01/01/21 01/02/21 01/03/21 11:59 11:59 11:59 11:59 Intake Total 1800 / 1800 840 / 840 1300 / 1300 820 / 820 Output Total 1300 / 1300 1050 / 1050 1100 / 1100 2100 / 2100 Balance 500 / 500 -210 / -210 200 / 200 -1280 / -1280 Weight 247 lb 0.003 oz 246 lb 15.989 oz 253 lb 15.56 oz 246 lb 8 oz Microbiology Reports for the Last 24 Hours: Microbiology 12/28/20 13:15 Blood Blood Culture - Final NO GROWTH AFTER 5 DAYS 12/28/20 13:15 Blood Blood Culture - Final NO GROWTH AFTER 5 DAYS Narrative: Patient looks comfortable with no increased work of breathing. Lungs are distant with some rales in the left lateral lung today. Heart has a regular rate and rhythm. Abdomen is obese. Extremities are without edema Assessment and Plan (1) Acute hypoxemic respiratory failure due to COVID-19 Status: Acute Category: Medical Code(s): U07.1 - COVID-19; J96.01 - Acute respiratory failure with hypoxia (2) Obesity, Class II, BMI 35-39.9 Status: Acute Category: Medical Code(s): E66.9 - Obesity, unspecified (3) Left bundle branch block (LBBB) Status: Acute Category: Medical Code(s): I44.7 - Left bundle-branch block, unspecified (4) HLD (hyperlipidemia) Status: Chronic Qualifiers: Hyperlipidemia type: mixed hyperlipidemia Qualified Code(s): E78.2 - Mixed hyperlipidemia Category: Medical Code(s): E78.5 - Hyperlipidemia, unspecified (5) HTN (hypertension) Status: Chronic Qualifiers: Hypertension type: essential hypertension Qualified Code(s): I10 - Essential (primary) hypertension Category: Medical Code(s): I10 - Essential (primary) hypertension (6) Nonischemic cardiomyopathy Status: Chronic Category: Medical Code(s): I42.8 - Other cardiomyopathies (7) CHF (congestive heart failure), NYHA class II Status: Chronic Qualifiers: Congestive heart failure type: combined Congestive heart failure chronicity: chronic Qualified Code(s): I50.42 - Chronic combined systolic (congestive) and diastolic (congestive) heart failure Category: Medical Code(s): I50.9 - Heart failure, unspecified (8) Viral pneumonia Status: Acute Category: Medical Code(s): J12.9 - Viral pneumonia, unspecified (9) COVID-19 virus infection Status: Acute Category: Medical Code(s): U07.1 - COVID-19 - Assessment and plan all Dx Assessment and Plan for all problems:: 1. Continue remdesivir and dexamethasone 2. Echocardiogram reveals reduced ejection fraction compared to patient's prior echoes. Patient has known nonischemic cardiomyopathy. Due to reduction in his EF I am going to consult cardiology service as they are familiar with the patien
[2021-01-03 07:08] LABS: Alanine Aminotransferase 25 U/L (12-78); Albumin Level 3.5 g/dl (3.5-5.0); Alkaline Phosphatase 60 U/L (38-126); Anion Gap 11.5 mEq/L (5-15); Aspartate Amino Transferase 21 U/L (17-59); Bilirubin,Indirect 0.4 mg/dL (0.0-0.9); Bilirubin,Total 0.4 mg/dl (0.2-1.3); Bilirubin,Unconjugated 0.4 mg/dL (0.0-1.1); Blood Urea Nitrogen 32 mg/dl (9-20); Calcium 8.9 mg/dl (8.4-10.2); Carbon Dioxide 26 mmol/L (22.0-30.0); Chloride 103 mmol/L (98-107); Creatinine Clearance Estimated 90 mL/min (50-200); Estimated Glomerular Filt Rate 65 ml/min (>60); GFR (African American) 79 ML/MIN (>60); Glucose 108 mg/dl (74-100); Potassium 4.5 mmoL/L (3.5-5.1); Sodium 136 mmol/L (136-145); Total Protein,Serum 6.5 g/dl (6.3-8.2)
--- NOTE | 2021-01-03 11:02 | HMH.CNCARD ---
History of Present Illness Consult date: 01/03/21 Requesting physician: Rm Simmons Chief complaint: Non- ischemic CMP History of present illness: 75-year-old male admitted to [facility] with Covid. Patient is currently in the Covid unit. Covid precautions and protocols are being followed. Cardiology works is consulted due to PCP obtaining echo. Echocardiogram revealed a reduced EF of 25 to 30%. This is nonischemic cardiomyopathy. Last echocardiogram on revealed 35%. MUGA scan was also performed in 2019 which revealed EF of 43%. This seems to be chronic for the patient. Patient complains of increased shortness of breath. Patient is on 3 L of O2 by nasal cannula. Patient is continuing to receive neb treatments for his shortness of breath. This is managed by pulmonology and PCP. Patient does have a history of congestive heart failure which is class III. Patient has history of carotid artery stenosis. Last CNI revealed R ICA 20% with left ICA 20 to 49%. Bilateral carotid bruits are noted. Patient is noted to have a left bundle branch block. He has history of hyperlipidemia and hypertension. Per cardiac records, unknown if patient is never undergone a heart catheterization or any further testing for his ischemic cardiomyopathy. Patient denies tightness, pressure or chest pain. Patient complains of increased shortness of breath especially when he takes a deep breath. No swelling noted of the lower extremities noted. Denies fever, nausea or vomiting. Patient is resting quietly in his chair. 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 Blood pressure is stable. Patient is known to cardiac clinic. Patient has refused in the past to undergo left heart catheterization due to his nonischemic cardiomyopathy. Did discuss with patient having further cardiac testing on an outpatient basis once he has recovered from Covid. Patient stated he will discuss it at his cardiac appointment once he is discharged from this facility and has recovered from Covid. Patient at this time is declining to undergo any further cardiac testing. Will DC lisinopril. Start patient on Entresto 24-26mg p.o. twice daily due to CMP. Please start the Entresto 36 hours after the last lisinopril dose. This will give the lisinopril time to flush out of patient system. Discussed plan of care with Dr. Cantu. Recommended further cardiac testing on an outpatient basis. This will hopefully allow patient to recover from Covid. Patient at this time is refusing any other additional cardiac testing. Will DC lisinopril today. We will start Entresto 24-26 mg p.o. twice daily in 36 hours from last dose of lisinopril. Thank you for allowing cardiology to participate in the care of this patient. [facility] History I have reviewed the patient's past medical history: Yes Medical History: Reports:: Cardiomyopathy, Congestive Heart Failure, Coronary Artery Disease, Gastroesophageal Reflux Disease(GERD), Hyperlipidemia, Hypertension Denies:: Cancer, Diabetes Mellitus Type 1, Diabetes Mellitus Type 2, Internal Pacemaker, MRSA, Seizures *Have you ever received a pneumonia vaccine?: Yes *Have you received a flu vaccine this season?: Yes Other Medical History: Denies: Blood Transfusion Reaction Laterality Cases: Right: Arthroscopy Knee, Bilateral: Cataract, Myringotomy (Ear Tubes), Tonsillectomy Other Surgeries: Yes: No Previous Surgery, Appendectomy, Cardiac Catheterization, Cholecystectomy, Colonoscopy. No: Pacemaker Amputation: No Fractures: No - *Social History Last grade of school completed: 7th or 8th Smoking Status: Never smoker #Yrs smoked (if former smoker): 50 Alcohol Intake: current Alcohol Intake Frequency:: a few times a week Substance Use Type: denies use *Occupational Status:: disabled Housing: house Household Members: none *Travel in the last 8 weeks: None Family Hx:: No significant family history Meds Home Medications Medication Instructi
--- NOTE | 2021-01-03 13:10 | SW/DCPLANNER ---
SET UP HOME 02 FOR THIS PATIENT THAT IS DISCHARGING HOME OVER THE WEEKEND WITH [facility]... A PORTABLE WILL BE DELIVERED LATER TODAY WITH ANTICIPATED DISCHARGE IN THE AM...
--- NOTE | 2021-01-03 13:45 | PC.NURSE ---
[facility] here w/ portable O2 tank, left @ pt bedside. Reviewed use and handing w/ pt, may need education again upon discharge. [facility] asks that staff call them when pt is discharged so they can come to pt's home for home set-up.
--- NOTE | 2021-01-03 16:59 | PC.NURSE ---
Has been up to chair for majority of shift. Remains on 3 L O2 per nasal cannula. Pt does become SOA w/ exertion. SPO2 sill drop to high-mid 80's w/ activity. Wheezes noted upon ausculation. HR regular, BBB noted on tely w/ occasional PAC/PVC's. Abdomen large, non-tender w/ active BS. Reports 1 BM this shift. Voiding w/o difficulty. Ambulates in room independently. Was assisted w/ bedside bath this AM, linens changed. No complaints voiced this shift. Good appetite this shift, finished all of his meal trays thus far.
[2021-01-04] VITALS: BP 120/65; PULSE 68; PULSE 70; RESP 18; TEMP 36.2; O2SAT 90
[2021-01-04 04:00] VITALS: BP 104/50; PULSE 60; PULSE 63; RESP 14; TEMP 36; O2SAT 98
--- NOTE | 2021-01-04 04:57 | PC.NURSE ---
shift summary pts lung sounds are diminished sats mainted 90% or above on 3L via NC with a rate ranging from 18-20. pt is alert an oriented X4. pt uses bedside urinal, urine clear and yellow in color. pt denies pain, nausea, vomiting, and diarrhea.
[2021-01-04 05:00] VITALS: BMI 36.8
[2021-01-04 05:47] LABS: Basophils # 0.1 K/mm3 (0-0.2); Basophils % 0.4 % (0.1-2.0); Eosinophils # 0.1 K/mm3 (0.0-0.4); Eosinophils % 0.8 % (0.1-12.0); Hematocrit 41.7 % (42.0-52.0); Hemoglobin 13.4 g/dL (14.1-18.0); Lymphocytes # 2.2 K/mm3 (0.7-4.5); Lymphocytes % 13.7 % (10-50); Mean Corpuscular HGB Conc 32.1 g/dL (31.8-35.4); Mean Corpuscular Hemoglobin 25.7 pg (27.0-31.2); Mean Corpuscular Volume 79.8 fl (80-94); Mean Platelet Volume 7.1 fl (7.4-10.4); Monocytes # 1.3 K/mm3 (0.1-1.0); Neutrophils # 12.1 K/mm3 (1.8-7.8); Platelet Count 457 K/mm3 (142-424); Red Blood Count 5.22 M/mm3 (4.60-6.20); Red Cell Distribution Width 16.1 % (11.5-17.5); White Blood Count 15.7 K/mm3 (4.8-10.8)
[2021-01-04 05:51] LABS: MANUAL DIFFERENTIAL MANUAL DIFFERENTIAL (MANUAL DIFF)
[2021-01-04 05:58] LABS: Chloride 101 mmol/L (98-107)
[2021-01-04 05:59] LABS: Potassium 4.7 mmoL/L (3.5-5.1); Sodium 136 mmol/L (136-145)
[2021-01-04 06:01] LABS: Alanine Aminotransferase 27 U/L (12-78); Albumin Level 3.7 g/dl (3.5-5.0); Albumin/Globulin Ratio 1.2 (1.1-1.8); Alkaline Phosphatase 64 U/L (38-126); Anion Gap 10.7 mEq/L (5-15); Aspartate Amino Transferase 19 U/L (17-59); Bilirubin,Total 0.5 mg/dl (0.2-1.3); Blood Urea Nitrogen 39 mg/dl (9-20); Carbon Dioxide 29 mmol/L (22.0-30.0); Creatinine Clearance Estimated 90 mL/min (50-200); Estimated Glomerular Filt Rate 65 ml/min (>60); GFR (African American) 79 ML/MIN (>60); Globulin 3.1 g/dL (1.3-3.2); Glucose 104 mg/dl (74-100); Total Protein,Serum 6.8 g/dl (6.3-8.2)
[2021-01-04 06:02] LABS: Calcium 9.2 mg/dl (8.4-10.2)
[2021-01-04 06:05] LABS: Hypochromasia 1+; Lymphocytes % 15 % (10-50); Microcytosis 1+; Monocytes % 5 % (2-9); Neutrophils % 77 % (42-76); Platelet Estimate Normal; Rouleaux 1+; Total Cells Counted 100
[2021-01-04 06:10] VITALS: PULSE 62; PULSE 63; O2SAT 94
--- NOTE | 2021-01-04 07:54 | HMH.DCSUM ---
General - General Admission date:: 12/28/20 Discharge date: 01/04/21 HPI HPI: Mr. Saul is a 75 yo M with Hx of HTN, heart failure with reduced ejection fraction, carotid bruits, obesity, and previous extensive smoking Hx. He presented to the ER yesterday with c/o SOA, cough, body aches for the past week with 3 days of increased SOA. On arrival he was found to be hypoxic and in respiratory distress. On Work-up he had labs, chest imaging, and respiratory swab obtained. Chest imaging positive for multifocal patchy air space disease. Respiratory panel positive for Covid-19. He has a new O2 requirement. Denies chest pain, nausea, vomiting. Admitted to medicine for further management of his Covid pneumonia. Placed in the isolation unit. On assessment this morning, patient feels a little short of breath but is very optimistic and upbeat. Denies any chest pain, confusion, headache, nausea or vomiting. Does have complaint of some diarrhea this morning. Tolerating good p.o. fluid intake. Afebrile today. Voiding independently. Has used incentive spirometer this morning, commended him on this and encouraged more aggressive pulmonary toilet. CODE STATUS discussion, patient is full code. Hospital Course Hospital Course: Patient was admitted for acute respiratory failure due to COVID-19 pneumonia. He was placed on dexamethasone and remdesivir per protocol along with nutritional supplementation. Patient's O2 sats remained in the 90s initially with nasal cannula although due to significant nasal congestion his nasal cannula was switched to a Ventimask for approximately 48 hours. During this time patient made O2 sats in the mid to high 90s. Once nasal congestion seemed improved patient was transitioned back to nasal cannula and gradually weaned to 3 L which kept his O2 sats in the mid to high 90s. Patient responded well to treatments and improved a little each day. He remained in good spirits which aided his recovery. The most significant lung finding the patient had during hospitalization was wheezing which was treated successfully with nebs of Atrovent and Xopenex. On January 04 patient was maintaining O2 sats in the 90s on 3 L of oxygen via the nasal cannula. Patient was discharged home. He was discharged to home with home and portable oxygen. He will also need nebulizer for Atrovent aerosols. Patient will follow-up in my office on January 11. During hospitalization patient had echocardiogram due to his history of nonischemic cardiomyopathy. Patient had had a change in ejection fraction with a decrease now to 25 to 30%. Cardiology was consulted and made medication adjustments to include discontinuation of lisinopril in favor of Entresto at low dose. Patient will follow up with cardiology as an outpatient Objective Vital signs: Temp Pulse Resp BP Pulse Ox 96.8 F L 63 14 104/50 L 94 L 01/04/21 04:00 01/04/21 06:10 01/04/21 04:00 01/04/21 04:00 01/04/21 06:10 no acute distress - *Routine Respiratory Exam Present: decreased breath sounds - *Routine Cardiovascular Exam Present: RRR Results Labs on day of discharge: Labs from last 24 hours 01/04/21 01/04/21 05:30 05:30 WBC 15.7 H RBC 5.22 Hgb 13.4 L Hct 41.7 L MCV 79.8 L MCH 25.7 L MCHC 32.1 RDW 16.1 Plt Count 457 H MPV 7.1 L Neut % (Auto) 77.0 Lymph % (Auto) 13.7 [place] % (Auto) 8.0 Eos % (Auto) 0.8 Baso % (Auto) 0.4 Neut # (Auto) 12.1 H Lymph # (Auto) 2.2 [place] # (Auto) 1.3 H Eos # (Auto) 0.1 Baso # (Auto) 0.1 Total Counted 100 Neutrophils % (Manual) 77 H Band Neutrophils % 3.0 Lymphocytes % (Manual) 15 Monocytes % (Manual) 5 Platelet Estimate Normal Hypochromasia 1+ Microcytosis 1+ Rouleaux 1+ Sodium 136 Potassium 4.7 Chloride 101 Carbon Dioxide 29 Anion Gap 10.7 BUN 39 H Creatinine 1.10 Estimated Creat Clear 90 Estimated GFR 65 Est GFR (Afr
[2021-01-04 08:00] VITALS: BP 102/56; PULSE 73; RESP 13; TEMP 36.9; O2SAT 91; O2SAT 93
== END 2021-01-04 10:00 | disposition home or self-care (01) | DRG 177 ==
LOC: ER 13:07 → ICU 16:35
PROVIDERS: Admitting Provider Internal Medicine Adolescent Medicine; Emergency Provider Emergency Medicine; PCP Family Medicine; Visit Provider Family Medicine
DX: U07.1 COVID-19 (principal); J96.01 Acute respiratory failure with hypoxia; J12.82 Pneumonia due to coronavirus disease 2019; I50.42 Chronic combined systolic (congestive) and diastolic (congestive) heart failure; I42.8 Other cardiomyopathies; Z79.899 Other long term (current) drug therapy; I44.7 Left bundle-branch block, unspecified; Z87.891 Personal history of nicotine dependence; I11.0 Hypertensive heart disease with heart failure
CPT/HCPCS: 36415; 71045; 80048; 80053; 80076; 83605; 83735; 84145; 84484; 85007; 85025; 85651; 86140; 87040; 87581; 87633; 87798; 93005; 93306; 94640; 94761; 99285; J2405; Q9957

== ENCOUNTER 2021-01-28 18:37 | Inpatient (IN) | payer MEDICARE, SELFPAY ==
[2021-01-28 18:39] VITALS: BP 126/65; PULSE 79; RESP 28; TEMP 36.6; O2SAT 91; BMI 37.2
--- NOTE | 2021-01-28 18:52 | HMH.EDSOB ---
ED Disposition Clinical Impression: COVID-19 virus infection Pneumonia Qualifiers: Pneumonia type: due to unspecified organism Laterality: bilateral Lung location: lower lobe of lung Qualified Code(s): J18.9 - Pneumonia, unspecified organism Disposition: Admitted As Inpatient Condition on Discharge: Fair Referrals: Pranav Juarez MD [Primary Care Provider] - - Critical Care Critical Care Time: No Attestation: On 01/28/21, the high probability of a clinically significant, sudden or life threatening deterioration of the following system(s) required my full and direct attention, intervention and personal management. The time I documented below is in addition to time spent performing reported procedures but includes the following listed in this critical care notation. Medical Decision Making - Mathew Inquiry Pt receiving controlled substance: No Vital Signs: 01/28/21 18:39 Temperature 97.9 F Temperature Source Oral Pulse Rate [Right Brachial] 79 Respiratory Rate 28 H Blood Pressure [Right Arm] 126/65 Blood Pressure Mean [Right Arm] 85 Blood Pressure Source [Right Arm] Automatic Cuff Blood Pressure Position [Right Arm] Supine 02 Sat by Pulse Oximetry 91 L Oxygen Delivery Method Nasal Cannula Oxygen Flow Rate (LPM) 3 - Lab Data Lab Results 01/28/21 19:00: WBC 14.5 H, RBC 4.84, Hgb 12.4 L, Hct 39.8 L, MCV 82.1, MCH 25.5 L, MCHC 31.1 L, RDW 16.4, Plt Count 864 H, MPV 7.4, Neut % (Auto) 74.2, Lymph % (Auto) 15.4, [place] % (Auto) 7.0, Eos % (Auto) 2.5, Baso % (Auto) 0.8, Neut # (Auto) 10.8 H, Lymph # (Auto) 2.2, [place] # (Auto) 1.0, Eos # (Auto) 0.4, Baso # (Auto) 0.1 01/28/21 19:00: Sodium 135 L, Potassium 4.1, Chloride 100, Carbon Dioxide 23, Anion Gap 16.1 H, BUN 41 H, Creatinine 2.10 H, Estimated Creat Clear 47, Estimated GFR 31 L, Est GFR ( Amer) 37 L, Glucose 113 H, Calcium 9.5, Total Bilirubin 0.4, AST 46, ALT 61, Alkaline Phosphatase 92, Troponin I 0.02, C-Reactive Protein 159.5 H, Total Protein 7.8, Albumin 3.8, Globulin 4.0 H, Albumin/Globulin Ratio 1.0 L 01/28/21 19:00: Lactate 1.7 01/28/21 19:00: ESR 48 H 01/28/21 19:21: Specimen Source Left radial, O2 % 5, ABG pH 7.44, ABG pCO2 28.9 L, ABG pO2 64.7 L, ABG HCO3 19.1 L, ABG Total CO2 19.9 L, ABG O2 Saturation 93, ABG Base Excess -5.1 L, Clive Test Acceptable Result diagrams: 01/28/21 19:00 01/28/21 19:00 Orders (Tests/Meds): ED MEDICATIONS Generic Name Dose Route Start Last Admin Trade Name Freq PRN Reason Stop Dose Admin Sodium Chloride 1,000 mls @ 999 mls/hr 01/28/21 20:15 Sod Chlor 0.9% 1000ml Bag IV 01/28/21 21:15 .Q1H1M FAN Cefepime HCl 2 gm/ Sodium 100 mls @ 200 mls/hr 01/28/21 20:15 Chloride IV 02/11/21 20:14 Q8H FAN Protocol Discontinued Medications Generic Name Dose Route Start Last Admin Trade Name Freq PRN Reason Stop Dose Admin Dexamethasone Sodium Phosphate 10 mg 01/28/21 19:09 01/28/21 19:16 Dexamethasone 4mg/Ml 1ml Vial IV 01/28/21 19:10 Not Given ONCE ONE ORDERS Category Date Time Status XR chest 2V Stat Exams 01/28/21 19:03 Taken Full Resp Panel w/COVID ([facility]) Routine Lab 01/28/21 19:07 Ordered Troponin I Q3H Lab 01/28/21 22:15 Ordered Troponin I Q3H Lab 01/29/21 01:15 Ordered Blood Culture Stat Micro 01/28/21 19:00 Received - Radiology Data #1 Image(s): Chest Image Reviewed: Yes I reviewed the patient's radiology image Preliminary Findings: Abnormal Infiltrates on plain chest radiograph worse on the left. - ECG Data Tracing #1 Was done at 1858 and shows a normal sinus rhythm with a rate of 77 bpm. There is an intraventricular conduction delay consistent with a left bundle branch block. An occasional PVC is also present. I compared this EKG to one obtained on December 28 of this year and there are no significant changes. There is no acute ischemia visible on this EKG. Normal Sinus Rhythm: Yes Arrhythmias present: PVC's (occasional) R
--- NOTE | 2021-01-28 18:57 | ECG_ITS ---
APPROVED REPORT Exam: Resting ECG HR:77 bpm ECG Measurements Heart Rate 77 AXES AL 170 P 0 QRSd 152 QRS 148 QT 472 T -2 QTc 534 Conclusion Sinus rhythm with occasional premature ventricular complexes Nonspecific intraventricular block Abnormal ECG Electronically signed by : Pranav Arias, 01/29/2021 13:21:55
[2021-01-28 19:03] VITALS: BMI 37.2
--- NOTE | 2021-01-28 19:03 | XR_ITS ---
PROCEDURE: XR CHEST 2V CLINICAL HISTORY: SOa COMPARISON: CR CXR CHEST(2 VIEWS-NOT PORTABLE) from 08/30/2014 CR CXR CHEST(2 VIEWS-NOT PORTABLE) from 01/31/2016 CR XR CHEST PORTABLE from 12/28/2020 FINDINGS: Extensive bilateral mid and lower zone infiltrates are noted bilaterally. Subsegmental infiltrate is noted in the left upper zone, worse compared to the prior study. No lobar consolidation, pleural effusions or pneumothorax. Left apical pleural thickening is noted. Cardiac size and central pulmonary vasculature within normal limits. Tortuous descending thoracic aorta is noted. Vascular calcification is noted. Degenerative changes of the visualized thoracic spine. IMPRESSION: Bilateral mid and lower zone infiltrates, worse compared to the prior study. Patchy infiltrate in the left upper zone is new compared to the prior study. Dictated by: Maggie Pat 01/29/2021 09:03 Maggie Pat in OV 01/29/2021 09:03
[2021-01-28 19:29] LABS: Basophils # 0.1 K/mm3 (0-0.2); Basophils % 0.8 % (0.1-2.0); Eosinophils # 0.4 K/mm3 (0.0-0.4); Eosinophils % 2.5 % (0.1-12.0); Hematocrit 39.8 % (42.0-52.0); Hemoglobin 12.4 g/dL (14.1-18.0); Lymphocytes # 2.2 K/mm3 (0.7-4.5); Lymphocytes % 15.4 % (10-50); Mean Corpuscular HGB Conc 31.1 g/dL (31.8-35.4); Mean Corpuscular Hemoglobin 25.5 pg (27.0-31.2); Mean Corpuscular Volume 82.1 fl (80-94); Mean Platelet Volume 7.4 fl (7.4-10.4); Neutrophils # 10.8 K/mm3 (1.8-7.8); Neutrophils % 74.2 % (37.0-80.0); Platelet Count 864 K/mm3 (142-424); Red Blood Count 4.84 M/mm3 (4.60-6.20); Red Cell Distribution Width 16.4 % (11.5-17.5); White Blood Count 14.5 K/mm3 (4.8-10.8)
[2021-01-28 19:35] LABS: Alanine Aminotransferase 61 U/L (12-78); Albumin Level 3.8 g/dl (3.5-5.0); Alkaline Phosphatase 92 U/L (38-126); Anion Gap 16.1 mEq/L (5-15); Aspartate Amino Transferase 46 U/L (17-59); Bilirubin,Total 0.4 mg/dl (0.2-1.3); Blood Urea Nitrogen 41 mg/dl (9-20); Calcium 9.5 mg/dl (8.4-10.2); Carbon Dioxide 23 mmol/L (22.0-30.0); Chloride 100 mmol/L (98-107); Creatinine Clearance Estimated 47 mL/min (50-200); Estimated Glomerular Filt Rate 31 ml/min (>60); GFR (African American) 37 ML/MIN (>60); Glucose 113 mg/dl (74-100); Lactic Acid 1.7 mmol/L (0.7-2.1); Potassium 4.1 mmoL/L (3.5-5.1); Sodium 135 mmol/L (136-145); Total Protein,Serum 7.8 g/dl (6.3-8.2)
[2021-01-28 19:42] LABS: C-Reactive Protein 159.5 mg/L (0-4)
[2021-01-28 19:50] LABS: Troponin I 0.02 ng/ml (0.00-0.034)
[2021-01-28 19:50] LABS: ABG Base Excess -5.1 mmol/L (-2.4-2.3); ABG HCO3 19.1 mmhg (22.0-26.0); ABG Oxygen Saturation 93 % (90-100); ABG PCO2 28.9 mmhg (35.0-45.0); ABG PH 7.44 mmol/L (7.35-7.45); ABG PO2 64.7 mmhg (80-100); ABG TCO2 19.9 mmhg (23-27)
[2021-01-28 19:51] LABS: Allen's Test Acceptable; Oxygen 5 %; Source Left Radial
[2021-01-28 19:57] LABS: Erythrocyte Sedimentation Rate 48 mm/hr (0-20)
[2021-01-28 20:15] LABS: Adenovirus,PCR Not Detected (NotDetected); Bordetella Pertussis Not Detected (NotDetected); Chlamydophila Pneumoniae, PCR Not Detected (NotDetected); Coronavirus 19, PCR Not Detected (NotDetected); Coronavirus 229E Not Detected (NotDetected); Coronavirus NL63 Not Detected (NotDetected); Coronavirus OC43 Not Detected (NotDetected); Coronovirus HKU1,PCR Not Detected (NotDetected); Human Metapneumovirus Not Detected (NotDetected); Influenza A, PCR Not Detected (NotDetected); Influenza AH1, 2009 Not Detected (NotDetected); Influenza AH1, PCR Not Detected (NotDetected); Influenza AH3,PCR Not Detected (NotDetected); Influenza B, PCR Not Detected (NotDetected); Mycoplasma Pneumoniae, PCR Not Detected (NotDetected); Parainfluenza 1, PCR Not Detected (NotDetected); Parainfluenza 2, PCR Not Detected (NotDetected); Parainfluenza 3, PCR Not Detected (NotDetected); Parainfluenza 4, PCR Not Detected (NotDetected); Respiratory Syncytial Virus Not Detected (NotDetected); Rhinovirus/Enterovirus Not Detected (NotDetected)
[2021-01-28 20:16] VITALS: BP 151/83; PULSE 78; RESP 24; TEMP 36.4; O2SAT 94
--- NOTE | 2021-01-28 21:28 | PC.NURSE ---
patient up to floor via wheelchair.
[2021-01-28 21:36] VITALS: BP 124/71; PULSE 78; RESP 20; TEMP 36.6; O2SAT 94
[2021-01-28 21:41] LABS: Procalcitonin 0.353 ng/mL (0.0-2.0)
[2021-01-28 22:00] VITALS: BMI 35.7
[2021-01-28 22:58] LABS: Troponin I 0.02 ng/ml (0.00-0.034)
[2021-01-28 23:50] VITALS: BP 78/52
[2021-01-28 23:55] VITALS: BP 78/52; PULSE 85; RESP 22; TEMP 36.5; O2SAT 91
[2021-01-29] VITALS (40 sets, daily range): BP systolic 76–129; BP diastolic 33–83; PULSE 8–100; RESP 20–24; TEMP 36.6–37.4; O2SAT 81–97; BMI 35.6; BMI 35.7
--- NOTE | 2021-01-29 00:47 | PC.NURSE ---
Pt became hypotensive at 2345, BP was 78/52. Pt was unsymtomatic. MD neon light installer was notified. sepsis protocol was initiated. Pt was bolused 1L, Vanc 2g was ordered per pharmacy dosing. Pt had received 1 prior 1L bolus in the ER. BP being monitored q30min.
[2021-01-29 01:30] LABS: Troponin I 0.03 ng/ml (0.00-0.034)
--- NOTE | 2021-01-29 03:57 | PC.NURSE ---
Pt is A&O x4. He has received a total of a 3L bolus per sepsis protocol. BP improved to 110/64 and pt has been normotensive since bolus was completed. Lungs are diminished, on 3L NC, sats in the low 90s. Pt has significant SOA when ambulating to the BR, sats drop to the mid 80s and takes about 10 mins to recover, pt reports this to be his baseline. NO edema noted, heart rate is irregular with frequent PVCs and pauses. Bowel sounds x4, abd soft and nontender. Pt able to make needs known, call light in reach, no concerns at this time.
--- NOTE | 2021-01-29 06:56 | HMH.HP ---
*Admission Date: 01/28/21 *Chief complaint: Weakness and shortness of breath *History of present illness: 75-year-old male presented to the emergency department yesterday with 1 week of increasing weakness and shortness of breath. Patient was hospitalized here earlier in the month with COVID-19 pneumonia and acute respiratory failure. Patient had been improving since his illness until a week ago. He became concerned yesterday when his blood pressure was very low at home and he could not get his blood pressure to come up. He presented to the emergency department. Patient denies having fevers or chills. His cough has been dry and nonproductive. He denies chest pain and swelling. He denies orthopnea. Patient has been using oxygen at home since his hospitalization for Covid and reports increased dyspnea on exertion. Work-up in the emergency department revealed an elevated white blood cell count, abnormal chest x-ray, elevated CRP and procalcitonin. Patient was admitted with a diagnosis of pneumonia and started on cefepime. Labs from the emergency department were also significant for acute kidney injury with creatinine of 2.1 up from 1.1 3 weeks ago. Shortly after admission and arrival to the [facility] floor patient was found to be hypotensive. Patient was given a 3 L fluid bolus and given a dose of vancomycin as well. This morning patient continues to feel short of breath with a congested sensation in the left upper chest. [facility] History I have reviewed the patient's past medical history: Yes Medical History: Reports:: Cardiomyopathy, Congestive Heart Failure, Coronary Artery Disease, Gastroesophageal Reflux Disease(GERD), Hyperlipidemia, Hypertension Denies:: Cancer, Diabetes Mellitus Type 1, Diabetes Mellitus Type 2, Internal Pacemaker, MRSA, Seizures *Have you ever received a pneumonia vaccine?: Yes *Have you received a flu vaccine this season?: Yes Other Medical History: Denies: Blood Transfusion Reaction Laterality Cases: Right: Arthroscopy Knee, Bilateral: Myringotomy (Ear Tubes), Tonsillectomy Other Surgeries: Yes: No Previous Surgery, Appendectomy, Cardiac Catheterization, Cholecystectomy, Colonoscopy. No: Pacemaker Amputation: No Fractures: No - *Social History Smoking Status: Former smoker # Packs/Day (cigarettes): 3 #Yrs smoked (if former smoker): 30 Alcohol Intake: current Alcohol Intake Frequency:: holidays/special occasions only Substance Use Type: denies use *Occupational Status:: retired Housing: house Household Members: none *Travel in the last 8 weeks: None Family Hx:: No significant family history Review of Systems - Constitutional Reports lack of energy, Denies body ache(s), Denies chills - Eyes Denies blurry vision, Denies change in vision - ENT Denies change in voice, Denies poor balance, Denies dizziness, Denies dry mouth - *Cardiovascular Reports shortness of breath with activity, Denies chest pain, Denies chest pain at rest, Denies chest pain with activity, Denies leg pain with activity, Denies excessive sweating, Denies generalized swelling, Denies irregular heart rhythm - *Respiratory Denies chest congestion - *Gastrointestinal Denies bloating, Denies heartburn - *Genitourinary Denies painful urination, Denies blood in urine - *Musculoskeletal Denies joint pain, Denies decreased muscle mass - Integumentary/Breasts Denies bleeding lesions - *Neurologic Denies abnormal movements, Denies abnormal speech, Denies behavioral changes Meds Home Medications Medication Instructions Recorded Confirmed Type fluticasone propionate 50 50 mcg INTRANASAL DAILY 90 Days 01/28/18 01/28/21 History mcg/actuation nasal spray,suspension montelukast 10 mg tablet 10 mg PO DAILY 90 Days 01/28/18 01/28/21 History rosuvastatin 20 mg tablet 20 mg PO HS tab 11/03/19 01/28/21 History Omeprazole [Omeprazole 20mg 20 mg PO DAILY 01/01/20 01/28/21 History Capsule] celecoxib 200 mg capsule 200 mg PO BEATRIZ
[2021-01-29 07:50] LABS: Basophils # 0.1 K/mm3 (0-0.2); Basophils % 0.5 % (0.1-2.0); Eosinophils # 0.4 K/mm3 (0.0-0.4); Eosinophils % 2.9 % (0.1-12.0); Hematocrit 36.5 % (42.0-52.0); Hemoglobin 11.7 g/dL (14.1-18.0); Lymphocytes # 2.3 K/mm3 (0.7-4.5); Lymphocytes % 16.5 % (10-50); Mean Corpuscular Hemoglobin 25.7 pg (27.0-31.2); Mean Corpuscular Volume 80.2 fl (80-94); Mean Platelet Volume 7.3 fl (7.4-10.4); Monocytes # 1.1 K/mm3 (0.1-1.0); Monocytes % 8.2 % (1.7-9.3); Neutrophils # 9.8 K/mm3 (1.8-7.8); Neutrophils % 71.8 % (37.0-80.0); Platelet Count 813 K/mm3 (142-424); Red Blood Count 4.55 M/mm3 (4.60-6.20); Red Cell Distribution Width 16.2 % (11.5-17.5); White Blood Count 13.6 K/mm3 (4.8-10.8)
[2021-01-29 07:56] LABS: Blood Urea Nitrogen 40 mg/dl (9-20); Carbon Dioxide 21 mmol/L (22.0-30.0); Chloride 107 mmol/L (98-107); Creatinine Clearance Estimated 59 mL/min (50-200); Estimated Glomerular Filt Rate 42 ml/min (>60); GFR (African American) 51 ML/MIN (>60); Glucose 109 mg/dl (74-100); Sodium 137 mmol/L (136-145)
[2021-01-29 07:59] LABS: Calcium 8.5 mg/dl (8.4-10.2)
[2021-01-29 08:03] LABS: NT Pro Brain Natriuretic Pep. 343 pg/mL (0-450)
[2021-01-29 08:11] LABS: Procalcitonin 0.202 ng/mL (0.0-2.0)
--- NOTE | 2021-01-29 08:15 | HMH.PHAVTE ---
[facility] Pharmacy VTE Monitoring - Patient Demographics Admission date: 01/28/21 Report Date: 01/29/21 Time: 08:15 Allergies/Adverse Reactions: Patient Allergies Penicillins Allergy (Verified 01/28/21 21:54) Height: 1.73 m Weight: 106.651 kg Patient Problems: Current Active Problems COVID-19 virus infection (Acute) Respiratory failure, acute (Acute) Obesity (BMI 30-39.9) (Acute) Obesity, Class II, BMI 35-39.9 (Acute) Pneumonia (Acute) Acute kidney injury (Acute) Nonischemic cardiomyopathy (Chronic) - VTE Risk Labs: VTE Related Lab Results Hgb 11.7 g/dL (14.1-18.0) L 01/29/21 07:18 Hct 36.5 % (42.0-52.0) L 01/29/21 07:18 Plt Count 813 K/mm3 (142-424) H 01/29/21 07:18 BUN 40 mg/dl (9-20) H 01/29/21 07:18 Creatinine 1.60 mg/dl (0.66-1.25) H D 01/29/21 07:18 Estimated Creat Clear 59 mL/min (50-200) 01/29/21 07:18 Was VTE Risk Assessment Performed: Yes VTE Score: 4 VTE Risk Level: Low Risk - Prophylaxis VTE Prophylaxis Ordered?: Yes Types of VTE Prophylaxis: TEDS Knee High, Pharmacological Location of Applied Device: Bilateral Lower Extremeties Pharmacologic Type: Enoxaparin
--- NOTE | 2021-01-29 10:27 | HMH.PHAINT ---
MEDICATION RECONCILIATION COMPLETED USING MD OFFICE LIST, PATIENT, AND EXTERNAL FILL HISTORY
--- NOTE | 2021-01-29 12:31 | PC.NURSE ---
Pt unable to produce sputum specimen at this time. Specimen cup at bedside.
--- NOTE | 2021-01-29 16:41 | PC.NURSE ---
Dr Juarez notified that patient's oxygen sats are in the 80's on 5L NC and on 50% venti mask. New order to switch patient to vapotherm. Respiratory at bedside and notified. Also 1L NS bolus ordered for bp of 102/48. Bolus initiated and order faxed to pharmacy.
--- NOTE | 2021-01-29 16:45 | XR_ITS ---
PROCEDURE: XR CHEST PORTABLE CLINICAL HISTORY: acute resp. failure COMPARISON: CR CXR CHEST(2 VIEWS-NOT PORTABLE) from 01/31/2016 CR XR CHEST PORTABLE from 12/28/2020 CR XR CHEST 2V from 01/28/2021 FINDINGS: Multifocal bilateral infiltrates are noted, predominantly in the left upper and lower lobes, worse compared to the prior chest radiograph of January 28, 2021. Cardiac margins are obscured by the presence of bilateral infiltrates. Multilevel degenerative changes of the visualized thoracic spine and bilateral shoulder joints. IMPRESSION: Bilateral lung infiltrates, worsened compared to the prior study of January 28, 2021. Dictated by: Maggie Pat 01/29/2021 17:11 Maggie Pat in OV 01/29/2021 17:11
--- NOTE | 2021-01-29 18:12 | PC.NURSE ---
Pt is alert and oriented x4. He can verbalize his needs. He has a urinal at the bedside that he utilizes independently. Appetite is poor with him eating very little of his meals. He is currently on 40L 100% vapotherm with O2 sats running in the upper 90's. He has spent all day in bed and slept intermittently throughout the shift. He has been very pleasant with staff. Family has been to visit and son is currently at bedside. Will continue to monitor.
--- NOTE | 2021-01-29 23:21 | PC.NURSE ---
patient voided 200mL in urinal and O2 Sats decreased to low to mid 80's with exertion. Patient had difficulty recovering on Vapotherm 40L FiO2 100% to 88%. Respiratory notified. Patient O2 sats decreased again to mid 80's administered Lasix 40mg IVP x 1 dose per DEC. Patient unable to void x 2 separate occasions post Lasix exhibiting acute respiratory distress with attempts; bladder distended; patient c/o pressure and pain in bladder; mendez anchored after 700 residual obtained.
[2021-01-29 23:41] LABS: Microscopic, Urine URINE MICROSCOPIC (MICROSCOPIC)
[2021-01-30] VITALS (15 sets, daily range): BP systolic 113–153; BP diastolic 56–87; PULSE 61–100; RESP 17–38; TEMP 36.4–36.9; O2SAT 83–94; BMI 35.6
[2021-01-30 00:05] LABS: Appearance,Urine CLEAR (Clear); Bilirubin,Urine Negative (Negative); Blood, Urine Negative (Negative); Color,Urine YELLOW (Yellow); Glucose,Urine (UA) Negative (Negative); Ketones,Urine Negative (Negative); Leukocyte Esterase,Urine Negative (Negative); Nitrate,Urine Negative (Negative); PH,Urine 5.5 (5.0-8.5); Protein,Urine Negative (Negative); Specific Gravity, Urine 1.015 (1.005-1.030); Urobilinogen,Urine 0.2 EU/dl (0.2)
[2021-01-30 00:18] LABS: Bacteria,Urine 1+ /lpf
--- NOTE | 2021-01-30 05:38 | PC.NURSE ---
On vapotherm maximum amount 40L FiO2 100%; O2 Sats decrease below 90% throughout shift; With any movement or exertion O2 sats decrease to low to mid 80's. Lasix administered per order and output greater than 1800mL; Lungs are diminished throughout. Patient RR increased 20-30 bpm; respiratory notified. Family at bedside. Will continue to monitor.
[2021-01-30 06:31] LABS: Basophils % 0.2 % (0.1-2.0); Eosinophils % 0.1 % (0.1-12.0); Hematocrit 36.4 % (42.0-52.0); Hemoglobin 11.4 g/dL (14.1-18.0); Lymphocytes # 1.3 K/mm3 (0.7-4.5); Mean Corpuscular HGB Conc 31.3 g/dL (31.8-35.4); Mean Corpuscular Volume 79.8 fl (80-94); Mean Platelet Volume 6.9 fl (7.4-10.4); Monocytes # 0.4 K/mm3 (0.1-1.0); Neutrophils # 12.9 K/mm3 (1.8-7.8); Neutrophils % 87.7 % (37.0-80.0); Platelet Count 783 K/mm3 (142-424); Red Blood Count 4.56 M/mm3 (4.60-6.20); White Blood Count 14.8 K/mm3 (4.8-10.8)
[2021-01-30 06:33] LABS: Chloride 108 mmol/L (98-107); Potassium 4.7 mmoL/L (3.5-5.1); Sodium 137 mmol/L (136-145)
[2021-01-30 06:36] LABS: Anion Gap 12.7 mEq/L (5-15); Blood Urea Nitrogen 29 mg/dl (9-20); Carbon Dioxide 21 mmol/L (22.0-30.0); Creatinine Clearance Estimated 95 mL/min (50-200); Estimated Glomerular Filt Rate 73 ml/min (>60); GFR (African American) 88 ML/MIN (>60); Glucose 183 mg/dl (74-100)
[2021-01-30 06:46] LABS: MANUAL DIFFERENTIAL MANUAL DIFFERENTIAL (MANUAL DIFF)
--- NOTE | 2021-01-30 07:11 | HMH.ACPN2 ---
Internal Medicine - PN: Subj *Date: 01/30/21 *Time: 07:11 Interval history: Patient developed increased oxygen requirement as his day progressed yesterday and ultimately ended up on Vapotherm maxed out at 40 L with FiO2 of 100%. This is keeping his O2 sats in the low to mid 90s. Patient had desaturations overnight and was given IV Lasix after having received over 5 L of fluid since admission. This morning the patient reports feeling a little better. He has minimal cough. He has not had any fevers. He had excellent response to the furosemide with over 1800 mL out since administration overnight. Exam Vital signs and Labs for Last 24 Hours: Temp Pulse Resp BP Pulse Ox 98.4 F 78 32 H 117/81 91 L 01/30/21 04:00 01/30/21 05:31 01/30/21 04:00 01/30/21 04:00 01/30/21 05:31 Laboratory Results - last 24 hr 01/29/21 07:18: WBC 13.6 H, RBC 4.55 L, Hgb 11.7 L, Hct 36.5 L, MCV 80.2, MCH 25.7 L, MCHC 32.0, RDW 16.2, Plt Count 813 H, MPV 7.3 L, Neut % (Auto) 71.8, Lymph % (Auto) 16.5, [place] % (Auto) 8.2, Eos % (Auto) 2.9, Baso % (Auto) 0.5, Neut # (Auto) 9.8 H, Lymph # (Auto) 2.3, [place] # (Auto) 1.1 H, Eos # (Auto) 0.4, Baso # (Auto) 0.1 01/29/21 07:18: Sodium 137, Potassium 4.0, Chloride 107, Carbon Dioxide 21 L, Anion Gap 13.0, BUN 40 H, Creatinine 1.60 H D, Estimated Creat Clear 59, Estimated GFR 42 L, Est GFR ( Amer) 51 L D, Glucose 109 H, Calcium 8.5 D, Procalcitonin 0.202 01/29/21 07:18: NT-Pro-B Natriuret Pep 343 01/29/21 22:45: Urine Color Yellow, Urine Appearance Clear, Urine pH 5.5, Ur Specific [place] 1.015, Urine Protein Negative, Urine Glucose (UA) Negative, Urine Ketones Negative, Urine Blood Negative, Urine Nitrate Negative, Urine Bilirubin Negative, Urine Urobilinogen 0.2, Ur Leukocyte Esterase Negative, Urine WBC 3-5, Ur Squamous Epith Cells 3-5, Urine Bacteria 1+ 01/30/21 06:01: WBC 14.8 H, RBC 4.56 L, Hgb 11.4 L, Hct 36.4 L, MCV 79.8 L, MCH 25.0 L, MCHC 31.3 L, RDW 16.0, Plt Count 783 H, MPV 6.9 L, Neut % (Auto) 87.7 H, Lymph % (Auto) 9.0 L, [place] % (Auto) 3.0, Eos % (Auto) 0.1, Baso % (Auto) 0.2, Neut # (Auto) 12.9 H, Lymph # (Auto) 1.3, [place] # (Auto) 0.4, Eos # (Auto) 0.0, Baso # (Auto) 0.0 01/30/21 06:01: Sodium 137, Potassium 4.7, Chloride 108 H, Carbon Dioxide 21 L, Anion Gap 12.7, BUN 29 H D, Creatinine 1.00 D, Estimated Creat Clear 95, Estimated GFR 73, Est GFR ( Amer) 88 D, Glucose 183 H D, Calcium 9.0 I & O for Last 24 hours: Intake & Output 01/27/21 01/28/21 01/29/21 01/30/21 11:59 11:59 11:59 11:59 Intake Total 1240 / 1240 4245 / 4245 Output Total 600 / 600 2099 / 2099 Balance 640 / 640 2145 / 2145 Weight 235 lb 2 oz 235 lb 5 oz - Constitutional mild distress (Increased work of breathing although improved compared to yesterday evening), obese - *Routine HEENT Exam Head: Present: normocephalic Eye: Present: EOMI, PERRL ENT: Present: mucous membranes moist - *Routine Respiratory Exam Present: accessory muscle use, rales (Right lateral and anterior lower lung, left lung anteriorly and posteriorly), diminished air movement - *Routine Cardiovascular Exam Present: RRR - *Routine Abdominal Exam Present: soft, obese - *Routine Extremities Exam Absent: cyanosis, clubbing, edema Assessment and Plan (1) Pneumonia Status: Acute Qualifiers: Pneumonia type: due to unspecified organism Laterality: bilateral Lung location: lower lobe of lung Qualified Code(s): J18.9 - Pneumonia, unspecified organism Category: Medical Code(s): J18.9 - Pneumonia, unspecified organism (2) Acute kidney injury Status: Acute Category: Medical Code(s): N17.9 - Acute kidney failure, unspecified (3) Obesity (BMI 30-39.9) Status: Acute Category: Medical Code(s): E66.9 - Obesity, unspecified (4) Respiratory failure, acute Status: Acute Qualifiers: Respiratory failure complication: hypoxia Qualified Code(s): J96.01 - Acute respiratory failure with hypoxia
--- NOTE | 2021-01-30 07:58 | HMH.PHACONS ---
- Pharmacy Consult Date: 01/30/21 Time: 07:59 Referring provider: AUDREY Reason for Consult:: Assessment and Plan (1) Pneumonia Status: Acute Qualifiers: Pneumonia type: due to unspecified organism Laterality: bilateral Lung location: lower lobe of lung Qualified Code(s): J18.9 - Pneumonia, unspecified organism Category: Medical Code(s): J18.9 - Pneumonia, unspecified organism (2) Acute kidney injury Status: Acute Category: Medical Code(s): N17.9 - Acute kidney failure, unspecified (3) Obesity (BMI 30-39.9) Status: Acute Category: Medical Code(s): E66.9 - Obesity, unspecified (4) Respiratory failure, acute Status: Acute Qualifiers: Respiratory failure complication: hypoxia Qualified Code(s): J96.01 - Acute respiratory failure with hypoxia Category: Medical Code(s): J96.00 - Acute respiratory failure, unspecified whether with hypoxia or hypercapnia (5) Obesity, Class II, BMI 35-39.9 Status: Acute Category: Medical Code(s): E66.9 - Obesity, unspecified (6) Nonischemic cardiomyopathy Status: Chronic Category: Medical Code(s): I42.8 - Other cardiomyopathies - Assessment and plan all Dx Assessment and Plan for all problems:: 1. Continue broad-spectrum coverage for patient's pneumonia until he is able to produce a sputum sample or he has completed an adequate course of antibiotics. Nasal swab for MRSA will be performed. PHARMACY CONSULTED TO DOSE AND MANAGE VANCOMYCIN THERAPY Allergies and ADEs:: Allergies Allergy/AdvReac Type Severity Reaction Status Date / Time Penicillins Allergy Verified 01/28/21 21:54 Home Medications:: Home Medications Medication Instructions Recorded Confirmed Type montelukast 10 mg tablet 10 mg PO DAILY 90 Days 01/28/18 01/28/21 History rosuvastatin 20 mg tablet 20 mg PO HS tab 11/03/19 01/28/21 History celecoxib 200 mg capsule 200 mg PO DAILY 01/11/20 01/28/21 History aspirin 81 mg tablet,delayed 81 mg PO DAILY tab 03/22/20 01/29/21 History release Metoprolol Succinate [Metoprolol 25 mg PO DAILY 12/28/20 01/28/21 History Succinate 25mg Tablet*] Furosemide [Furosemide 40MG tAB*] 40 mg PO BID 01/28/21 01/29/21 History Lisinopril/Hydrochlorothiazide 1 each PO BID 01/29/21 01/29/21 History [Lisinopril-Hctz 20-12.5 mg Tab] Potassium Chloride 8 meq PO Q48H 01/29/21 01/29/21 History Height: 1.73 m Weight: 106.736 kg Laboratory Results:: Laboratory Results - last 24 hr 01/29/21 07:18: Sodium 137, Potassium 4.0, Chloride 107, Carbon Dioxide 21 L, Anion Gap 13.0, BUN 40 H, Creatinine 1.60 H D, Estimated Creat Clear 59, Estimated GFR 42 L, Est GFR ( Amer) 51 L D, Glucose 109 H, Calcium 8.5 D, Procalcitonin 0.202 01/29/21 07:18: NT-Pro-B Natriuret Pep 343 01/29/21 22:45: Urine Color Yellow, Urine Appearance Clear, Urine pH 5.5, Ur Specific [place] 1.015, Urine Protein Negative, Urine Glucose (UA) Negative, Urine Ketones Negative, Urine Blood Negative, Urine Nitrate Negative, Urine Bilirubin Negative, Urine Urobilinogen 0.2, Ur Leukocyte Esterase Negative, Urine WBC 3-5, Ur Squamous Epith Cells 3-5, Urine Bacteria 1+ 01/30/21 06:01: WBC 14.8 H, RBC 4.56 L, Hgb 11.4 L, Hct 36.4 L, MCV 79.8 L, MCH 25.0 L, MCHC 31.3 L, RDW 16.0, Plt Count 783 H, MPV 6.9 L, Neut % (Auto) 87.7 H, Lymph % (Auto) 9.0 L, [place] % (Auto) 3.0, Eos % (Auto) 0.1, Baso % (Auto) 0.2, Neut # (Auto) 12.9 H, Lymph # (Auto) 1.3, [place] # (Auto) 0.4, Eos # (Auto) 0.0, Baso # (Auto) 0.0 01/30/21 06:01: Sodium 137, Potassium 4.7, Chloride 108 H, Carbon Dioxide 21 L, Anion Gap 12.7, BUN 29 H D, Creatinine 1.00 D, Estimated Creat Clear 95, Estimated GFR 73, Est GFR ( Amer) 88 D, Glucose 183 H D, Calcium 9.0 Medical History: Reports:: Cardiomyopathy, Congestive Heart Failure, Coronary Artery Disease, Gastroesophageal Reflux Disease(GERD), Hyperlipidemia, Hypertension Denies:: Cancer, Diabetes Mellitus Type 1, Diabetes Mellitus Type 2, Internal Pacemaker
[2021-01-30 09:15] LABS: Lymphocytes % 11 % (10-50); Monocytes % 4 % (2-9); Neutrophils % 85 % (42-76); Platelet Estimate Marked Increase; Total Cells Counted 100
[2021-01-30 09:16] LABS: RBC Morphology Normal
--- NOTE | 2021-01-30 10:05 | HMH.PULMCON ---
*Admission Date: 01/28/21 *Reason for consult:: Acute hypoxic respiratory failure *History of present illness: Mr. Saul is a 75-year-old male never seen by pulmonology, admitted to the hospital late December for COVID-19 pneumonia during which he was treated with remdesivir dexamethasone along with antibiotics for total of 5 days and discharged home on 3 L nasal cannula presented to the hospital with worsening respiratory failure and pulmonary was called for further management. [facility] History Medical History: Reports:: Cardiomyopathy, Congestive Heart Failure, Coronary Artery Disease, Gastroesophageal Reflux Disease(GERD), Hyperlipidemia, Hypertension Denies:: Cancer, Diabetes Mellitus Type 1, Diabetes Mellitus Type 2, Internal Pacemaker, MRSA, Seizures *Have you ever received a pneumonia vaccine?: Yes *Have you received a flu vaccine this season?: Yes Other Medical History: Denies: Blood Transfusion Reaction Laterality Cases: Right: Arthroscopy Knee, Bilateral: Myringotomy (Ear Tubes), Tonsillectomy Other Surgeries: Yes: No Previous Surgery, Appendectomy, Cardiac Catheterization, Cholecystectomy, Colonoscopy. No: Pacemaker Amputation: No Fractures: No - *Social History Smoking Status: Former smoker # Packs/Day (cigarettes): 3 #Yrs smoked (if former smoker): 30 Alcohol Intake: current Alcohol Intake Frequency:: holidays/special occasions only Substance Use Type: denies use *Occupational Status:: retired Housing: house Household Members: none *Travel in the last 8 weeks: None Family Hx:: No significant family history Meds Home Medications Medication Instructions Recorded Confirmed Type montelukast 10 mg tablet 10 mg PO DAILY 90 Days 01/28/18 01/28/21 History rosuvastatin 20 mg tablet 20 mg PO HS tab 11/03/19 01/28/21 History celecoxib 200 mg capsule 200 mg PO DAILY 01/11/20 01/28/21 History aspirin 81 mg tablet,delayed 81 mg PO DAILY tab 03/22/20 01/29/21 History release Metoprolol Succinate [Metoprolol 25 mg PO DAILY 12/28/20 01/28/21 History Succinate 25mg Tablet*] Furosemide [Furosemide 40MG tAB*] 40 mg PO BID 01/28/21 01/29/21 History Lisinopril/Hydrochlorothiazide 1 each PO BID 01/29/21 01/29/21 History [Lisinopril-Hctz 20-12.5 mg Tab] Potassium Chloride 8 meq PO Q48H 01/29/21 01/29/21 History Allergies Allergy/AdvReac Type Severity Reaction Status Date / Time Penicillins Allergy Verified 01/28/21 21:54 Internal Medicine - CN: Reslt - Labs CBC & Chem 7: 01/30/21 06:01 01/30/21 06:01 Labs: Short CBC 01/30/21 Range/Units 06:01 WBC 14.8 H (4.8-10.8) K/mm3 Hgb 11.4 L (14.1-18.0) g/dL Hct 36.4 L (42.0-52.0) % Plt Count 783 H (142-424) K/mm3 BMP 01/30/21 06:01 Sodium 137 Potassium 4.7 Chloride 108 H Carbon Dioxide 21 L BUN 29 H D Creatinine 1.00 D Glucose 183 H D Calcium 9.0 Urine 01/29/21 Range/Units 22:45 Urine Color Yellow (Yellow) Urine Appearance Clear (Clear) Urine pH 5.5 (5.0-8.5) Ur Specific [place] 1.015 (1.005-1.030) Urine Protein Negative (Negative) Urine Glucose (UA) Negative (Negative) - ABG Interpretation ABG results: 01/28/21 19:21 ABG pH 7.44 ABG pCO2 28.9 L ABG pO2 64.7 L ABG HCO3 19.1 L ABG Total CO2 19.9 L ABG O2 Saturation 93 ABG Base Excess -5.1 L Assessment and Plan (1) Pneumonia Status: Acute Qualifiers: Pneumonia type: due to unspecified organism Laterality: bilateral Lung location: lower lobe of lung Qualified Code(s): J18.9 - Pneumonia, unspecified organism Category: Medical Code(s): J18.9 - Pneumonia, unspecified organism (2) Acute kidney injury Status: Acute Category: Medical Code(s): N17.9 - Acute kidney failure, unspecified (3) Obesity (BMI 30-39.9) Status: Acute Category: Medical Code(s): E66.9 - Obesity, unspecified (4) Respiratory failure, acute Status: Acute Qualifiers: Respiratory failure complicat
--- NOTE | 2021-01-30 10:35 | CT_ITS ---
PROCEDURE: CT ANGIO CHEST CLINCIAL INDICATION: hypoxia COMPARISON: No exams were available for comparison TECHNIQUE: IV Contrast: 70ML Isovue 370 Axial images obtained with sagittal and coronal reformats. All CT scans at the facility use one or more dose reduction, viz: automated exposure control, ma/kV adjustment per patient size (including targeted exams where dose is matched to indication, i.e. head), or iterative reconstruction technique. FINDINGS: Slightly limited study due to phase of IV contrast. HEART AND MEDIASTINAL STRUCTURES: The central pulmonary arteries demonstrate no evidence of filling defects. Subsegmental vessels could not be evaluated in its entirety due to the phase of IV contrast. Nonocclusive filling defects of the subsegmental vessels cannot be excluded. The heart size is normal. No pericardial effusions. Atherosclerotic vascular calcification of the thoracic aorta and the coronary arteries are noted. Few neck calcified and noncalcified mediastinal and hilar lymph nodes are noted bilaterally.. The right paratracheal lymph node measures 1.9 times 1.3 centimeters. The largest lymph node in the right inferior peribronchial region measures 1.5 x 1.9 centimeters. LUNGS AND PLEURAL SPACES: There is extensive interstitial reticulations with subpleural honeycomb being noted in the lungs bilaterally. Multifocal minor ground-glass densities are noted bilaterally. No lobar consolidation or pleural effusions. Traction dilation of the bronchioles noted bilaterally. No suspicious lung nodules identified on the background of extensive interstitial changes. BONY STRUCTURES: Minor degenerative changes of the visualized thoracic spine UPPER ABDOMEN: Cholecystectomy is noted. There are focal areas of hypodensity is noted in the segment 5 of the liver, partially visualized. These are incompletely evaluated on the current study. Splenic granulomata are noted. Rest of the upper abdominal solid viscera are unremarkable within the limitations of phase of IV contrast. ADDITIONAL FINDINGS: The visualized thyroid gland is unremarkable. Focal hypodense lesion noted in the subcutaneous soft tissues of the anterior chest wall measuring up to 1.8 centimeters, likely represents a sebaceous cyst. IMPRESSION: Slightly limited study. No evidence of central pulmonary embolism. Nonocclusive filling defects of the segmental vessels cannot be excluded due to the phase of IV contrast. Interstitial lung disease. There is multifocal ground-glass densities bilaterally without evidence of focal consolidation, concerning for superimposed atypical infections. Two focal hypodense lesions noted in segment 5 of the liver measuring up to 1.8 centimeters. These are incompletely evaluated on the current study. Ultrasound of the liver can be performed in the 1st instance for further evaluation. If clinically indicated, MRI of the liver without and with contrast should be considered for further evaluation. Dictated by: Maggie Pat 01/30/2021 13:01 Maggie Pat in OV 01/30/2021 13:01
--- NOTE | 2021-01-30 14:28 | PC.NURSE ---
LATE ENTRY. SPOKE WITH DR ZELAYA AT 1245 TO UPDATE ON PT CONDITION AND O2 REQUIREMENTS, WHEN RETURNING FROM RADIOLOGY PT O2 SAT WAS NOTED TO BE IN THE LOW 80'S. APPLIED NON-REBREATHER OVER VAPOTHERM UNTIL PT RECOVERED. ORDERED PT BE MADE NPO.
--- NOTE | 2021-01-30 18:25 | PC.NURSE ---
HE HAS USED HIS INCENTIVE SPIROMETER Q1HR THIS SHIFT, HE IS AOX4, HAS BEEN IN BED ALL DAY, UNABLE TO TOLERATE ACTIVITY DUE TO DESATS, WHEEZING NOTED ON AUSCULTATION, VAPOTHERM [address] WELL 15 LPM NON-REBREATHER, O2 SATS 88-90, DR ZELAYA AND DR MUÑOZ HAVE BEEN MADE AWARE OF PT NEED FOR ADDITIONAL O2 SUPPORT AND DESATS VIA TELEPHONE.
--- NOTE | 2021-01-30 18:47 | PC.NURSE ---
PT HAS REMOVED NON-REBREATHER AT THIS TIME. DR ZELAYA HAS BEEN MADE AWARE AND PT WAS EDUCATED ON NEED FOR NON-REBREATHER. O2 SATS NOTED TO BE 84.
[2021-01-31] VITALS (45 sets, daily range): BP systolic 76–166; BP diastolic 48–99; PULSE 64–131; RESP 15–35; TEMP 6.1–43; O2SAT 85–99; BMI 35.1
--- NOTE | 2021-01-31 04:34 | PC.NURSE ---
Patient still on 15L non-rebreather mask & vapotherm 40L FiO2 100% with Sats 87-91% with no activity or talking. With any activity or speaking SATs decrease to mid to low 80's. Daughter at bedside throughout night; Patient RR 28-30 bpm and labored using accessory muscles; lung sounds diminished with expiratory wheezing noted. Output 1400mL this shift. Patient noticed after receiving Methyprednisolone (administered at 00:30) that he became jittery, wanting to move legs and hands which causes his O2 SATS decrease to mid 80's. Patient has call light in reach, bed at lowest level for safety. Will continue to monitor.
[2021-01-31 06:22] LABS: Basophils % 0.1 % (0.1-2.0); Eosinophils % 0.1 % (0.1-12.0); Hematocrit 35.8 % (42.0-52.0); Hemoglobin 11.1 g/dL (14.1-18.0); Lymphocytes # 1.4 K/mm3 (0.7-4.5); Mean Corpuscular HGB Conc 31.1 g/dL (31.8-35.4); Mean Corpuscular Hemoglobin 24.9 pg (27.0-31.2); Mean Corpuscular Volume 79.9 fl (80-94); Mean Platelet Volume 7.4 fl (7.4-10.4); Monocytes # 1.2 K/mm3 (0.1-1.0); Monocytes % 5.3 % (1.7-9.3); Neutrophils # 20.7 K/mm3 (1.8-7.8); Neutrophils % 88.5 % (37.0-80.0); Platelet Count 921 K/mm3 (142-424); Red Blood Count 4.47 M/mm3 (4.60-6.20); Red Cell Distribution Width 16.2 % (11.5-17.5); White Blood Count 23.3 K/mm3 (4.8-10.8)
[2021-01-31 06:25] LABS: Chloride 108 mmol/L (98-107); Sodium 140 mmol/L (136-145)
[2021-01-31 06:26] LABS: Potassium 4.3 mmoL/L (3.5-5.1)
[2021-01-31 06:29] LABS: Anion Gap 13.3 mEq/L (5-15); Blood Urea Nitrogen 45 mg/dl (9-20); Calcium 9.3 mg/dl (8.4-10.2); Carbon Dioxide 23 mmol/L (22.0-30.0); Creatinine Clearance Estimated 78 mL/min (50-200); Estimated Glomerular Filt Rate 59 ml/min (>60); GFR (African American) 71 ML/MIN (>60); Glucose 165 mg/dl (74-100)
[2021-01-31 06:38] LABS: MANUAL DIFFERENTIAL MANUAL DIFFERENTIAL (MANUAL DIFF)
--- NOTE | 2021-01-31 07:05 | HMH.ACPN2 ---
Internal Medicine - PN: Subj *Date: 01/31/21 *Time: 07:05 Interval history: Patient has had O2 sats ranging from the low 80s to the mid 90s overnight. Patient has Vapotherm in place at maximum settings and a nonrebreather was placed over this. This is allowed the patient to stay in the low to mid 90s. With movements in bed such as readjusting position he will be desaturate to the 80s. CT scan yesterday showed extensive pneumonia and fibrotic changes. Large PE was ruled out but there is still possibility there could be some smaller segmental PEs. Patient's daughter is at bedside. Exam Vital signs and Labs for Last 24 Hours: Temp Pulse Resp BP Pulse Ox 98.1 F 84 28 H 118/74 87 L 01/31/21 04:00 01/31/21 06:19 01/31/21 04:00 01/31/21 04:00 01/31/21 06:19 Laboratory Results - last 24 hr 01/30/21 06:01: Total Counted 100, Neutrophils % (Manual) 85 H, Lymphocytes % (Manual) 11, Monocytes % (Manual) 4, Platelet Estimate Marked increase, RBC Morphology Normal 01/31/21 06:07: WBC 23.3 H* D, RBC 4.47 L, Hgb 11.1 L, Hct 35.8 L, MCV 79.9 L, MCH 24.9 L, MCHC 31.1 L, RDW 16.2, Plt Count 921 H*, MPV 7.4, Neut % (Auto) 88.5 H, Lymph % (Auto) 6.0 L, [place] % (Auto) 5.3, Eos % (Auto) 0.1, Baso % (Auto) 0.1, Neut # (Auto) 20.7 H, Lymph # (Auto) 1.4, [place] # (Auto) 1.2 H, Eos # (Auto) 0.0, Baso # (Auto) 0.0 01/31/21 06:07: Sodium 140, Potassium 4.3, Chloride 108 H, Carbon Dioxide 23, Anion Gap 13.3, BUN 45 H D, Creatinine 1.20, Estimated Creat Clear 78, Estimated GFR 59, Est GFR ( Amer) 71, Glucose 165 H, Calcium 9.3 I & O for Last 24 hours: Intake & Output 01/28/21 01/29/21 01/30/21 01/31/21 11:59 11:59 11:59 11:59 Intake Total 1240 / 1240 4485 / 4485 Output Total 600 / 600 3400 / 3400 1400 / 1400 Balance 640 / 640 1085 / 1085 -1400 / -1400 Weight 235 lb 2 oz 235 lb 5 oz 231 lb 9 oz Microbiology Reports for the Last 24 Hours: Microbiology 01/28/21 19:00 Blood Blood Culture - Preliminary NO GROWTH AFTER 48 HOURS 01/28/21 19:00 Blood Blood Culture - Preliminary NO GROWTH AFTER 48 HOURS Narrative: Patient has increased work of breathing with use of abdominal muscles. He is conversant. Lung exam reveals basilar crackles on the left. Heart has a regular rate and rhythm. Abdomen is obese and soft. Extremities have no edema. White blood cell count has increased to 23,000. Platelets have risen to 900,000. Creatinine has risen slightly to 1.2 Assessment and Plan (1) Pneumonia Status: Acute Qualifiers: Pneumonia type: due to unspecified organism Laterality: bilateral Lung location: lower lobe of lung Qualified Code(s): J18.9 - Pneumonia, unspecified organism Category: Medical Code(s): J18.9 - Pneumonia, unspecified organism (2) Acute kidney injury Status: Acute Category: Medical Code(s): N17.9 - Acute kidney failure, unspecified (3) Obesity (BMI 30-39.9) Status: Acute Category: Medical Code(s): E66.9 - Obesity, unspecified (4) Respiratory failure, acute Status: Acute Qualifiers: Respiratory failure complication: hypoxia Qualified Code(s): J96.01 - Acute respiratory failure with hypoxia Category: Medical Code(s): J96.00 - Acute respiratory failure, unspecified whether with hypoxia or hypercapnia (5) Obesity, Class II, BMI 35-39.9 Status: Acute Category: Medical Code(s): E66.9 - Obesity, unspecified (6) Nonischemic cardiomyopathy Status: Chronic Category: Medical Code(s): I42.8 - Other cardiomyopathies - Assessment and plan all Dx Assessment and Plan for all problems:: 1. Discussion was had with patient regarding his condition and I have recommended mechanical ventilation which patient has declined. Patient's daughter is at bedside and they are both hesitant to proceed with mechanical ventilation as they believe he may never be extubated and it would lead to a worse out
--- NOTE | 2021-01-31 08:10 | PC.NURSE ---
Reviewed code status with pt and daughter (Brenda Uriarte). Pt wishes to remain a FULL CODE @ this time. He has verbally appointed his daughter, Brenda, to be his HCS to make decisions when/if he gets to the point that he can no longer make decisions. HCS form signed and a copy placed in his chart in the wardrobe attendant station. Daughter states that if pt can not make decisions, that she will make the decision for pt to be intubated. Dr. Juarez updated.
[2021-01-31 09:05] LABS: Lymphocytes % 5 % (10-50); Monocytes % 10 % (2-9); Neutrophils % 85 % (42-76); Total Cells Counted 100
[2021-01-31 09:06] LABS: Platelet Estimate Marked Increase; RBC Morphology Normal
[2021-01-31 09:09] LABS: Vancomycin,Trough 20.6 ug/mL (5.0-10.0)
[2021-01-31 09:22] LABS: ABG Base Excess -2.4 mmol/L (-2.4-2.3); ABG HCO3 21.8 mmhg (22.0-26.0); ABG Oxygen Saturation 88 % (90-100); ABG PCO2 32.7 mmhg (35.0-45.0); ABG PH 7.44 mmol/L (7.35-7.45); ABG PO2 52.6 mmhg (80-100); ABG TCO2 22.8 mmhg (23-27)
[2021-01-31 09:24] LABS: Allen's Test ACCEPTABLE; Oxygen 100% %; Source R RADIAL
--- NOTE | 2021-01-31 10:15 | HMH.PHACONS ---
- Pharmacy Consult Date: 01/31/21 Time: 10:15 Referring provider: DR. MUÑOZ Reason for Consult:: VANCOMYCIN TROUGH LEVEL Allergies and ADEs:: Allergies Allergy/AdvReac Type Severity Reaction Status Date / Time Penicillins Allergy Verified 01/28/21 21:54 Home Medications:: Home Medications Medication Instructions Recorded Confirmed Type montelukast 10 mg tablet 10 mg PO DAILY 90 Days 01/28/18 01/28/21 History rosuvastatin 20 mg tablet 20 mg PO HS tab 11/03/19 01/28/21 History celecoxib 200 mg capsule 200 mg PO DAILY 01/11/20 01/28/21 History aspirin 81 mg tablet,delayed 81 mg PO DAILY tab 03/22/20 01/29/21 History release Metoprolol Succinate [Metoprolol 25 mg PO DAILY 12/28/20 01/28/21 History Succinate 25mg Tablet*] Furosemide [Furosemide 40MG tAB*] 40 mg PO BID 01/28/21 01/29/21 History Lisinopril/Hydrochlorothiazide 1 each PO BID 01/29/21 01/29/21 History [Lisinopril-Hctz 20-12.5 mg Tab] Potassium Chloride 8 meq PO Q48H 01/29/21 01/29/21 History Height: 1.73 m Weight: 105.035 kg Laboratory Results:: Laboratory Results - last 24 hr 01/31/21 06:07: WBC 23.3 H* D, RBC 4.47 L, Hgb 11.1 L, Hct 35.8 L, MCV 79.9 L, MCH 24.9 L, MCHC 31.1 L, RDW 16.2, Plt Count 921 H*, MPV 7.4, Neut % (Auto) 88.5 H, Lymph % (Auto) 6.0 L, [place] % (Auto) 5.3, Eos % (Auto) 0.1, Baso % (Auto) 0.1, Neut # (Auto) 20.7 H, Lymph # (Auto) 1.4, [place] # (Auto) 1.2 H, Eos # (Auto) 0.0, Baso # (Auto) 0.0, Total Counted 100, Neutrophils % (Manual) 85 H, Lymphocytes % (Manual) 5 L, Monocytes % (Manual) 10 H, Platelet Estimate Marked increase, RBC Morphology Normal 01/31/21 06:07: Sodium 140, Potassium 4.3, Chloride 108 H, Carbon Dioxide 23, Anion Gap 13.3, BUN 45 H D, Creatinine 1.20, Estimated Creat Clear 78, Estimated GFR 59, Est GFR ( Amer) 71, Glucose 165 H, Calcium 9.3 01/31/21 06:07: Vancomycin Trough 20.6 H 01/31/21 07:15: Specimen Source R radial, O2 % 100%, ABG pH 7.44, ABG pCO2 32.7 L, ABG pO2 52.6 L, ABG HCO3 21.8 L, ABG Total CO2 22.8 L, ABG O2 Saturation 88 L, ABG Base Excess -2.4, Clive Test Acceptable Medical History: Reports:: Cardiomyopathy, Congestive Heart Failure, Coronary Artery Disease, Gastroesophageal Reflux Disease(GERD), Hyperlipidemia, Hypertension Denies:: Cancer, Diabetes Mellitus Type 1, Diabetes Mellitus Type 2, Internal Pacemaker, MRSA, Seizures Assessment and Plan (1) Pneumonia Status: Acute Qualifiers: Pneumonia type: due to unspecified organism Laterality: bilateral Lung location: lower lobe of lung Qualified Code(s): J18.9 - Pneumonia, unspecified organism Category: Medical Code(s): J18.9 - Pneumonia, unspecified organism (2) Acute kidney injury Status: Acute Category: Medical Code(s): N17.9 - Acute kidney failure, unspecified (3) Obesity (BMI 30-39.9) Status: Acute Category: Medical Code(s): E66.9 - Obesity, unspecified (4) Respiratory failure, acute Status: Acute Qualifiers: Respiratory failure complication: hypoxia Qualified Code(s): J96.01 - Acute respiratory failure with hypoxia Category: Medical Code(s): J96.00 - Acute respiratory failure, unspecified whether with hypoxia or hypercapnia (5) Obesity, Class II, BMI 35-39.9 Status: Acute Category: Medical Code(s): E66.9 - Obesity, unspecified (6) Nonischemic cardiomyopathy Status: Chronic Category: Medical Code(s): I42.8 - Other cardiomyopathies - Assessment and plan all Dx Assessment and Plan for all problems:: BASED ON PATIENT FACTORS AND VANCOMYCIN TROUGH LEVEL, RECOMMEND CHANGING INTERVAL TO VANCOMYCIN 2 GM IV Q18H. PHARMACY WILL CONTINUE TO MONITOR DAILY AND ADJUST APPROPRIATE.
--- NOTE | 2021-01-31 10:30 | PC.NURSE ---
pt transported to procedure room in OR for intubation and bronchoscopy via bed. Myself, RTs (Alicia) transported pt.
--- NOTE | 2021-01-31 10:40 | DIET.NUTRFU ---
Addendum entered by Vanessa Medina RDN, RD 02/01/21 09:16: Consult to initiate TF has been received. Agree with below recommendation from Cheryl Gacria RD. Pt will be started on Pulmocare at 20mL/hr continuous and increased as tolerated to a goal rate of 47mL/hr. Will monitor pt tolerance closely and adjust fluids/TF goals as needed. Addendum entered by Danna Garcia 01/31/21 14:15: Pt intubated. Recommend initiating enteral nutrition when appropriate per MD. Pt with CHF, recent weight loss and minimal intakes, in ARF. Pt is currently receiving high dose Propofol, regimen adjusted to account for additional kcal and will monitor to alter as indicated. Pulmocare is most appropriate formula, recommend initiating at 50% needs and advancing to 75-100% needs as tolerated. Recommend initiating continuous tube feeding regimen of Pulmocare 1.5 at 20ml/hr and advancing by 10ml/hr as tolerated to goal rate of 47ml/hr. Recommend minimal water flushes of 30-60ml q 4hr/at GRV checks while receiving IVF. If IVF dc'd, recommend water flushes of 230ml q 4h to meet additional fluid needs not provided by formula. This regimen provides 1625kcal, 68g protein, 114g cho, 101g fat, and 850ml free water (2300ml total fluids with flushes). Will monitor pt tolerance, meds, fluids to alter regimen as indicated. Original Note: Pt NPO except medications since 01/30 at 17:00 for procedure. Prior to NPO status, he was able to eat about 25% with poor tolerance dt SOA, taking in minimal fluid intake. Weight has remained stable within 5#. No edema reported. Pt has not had a BM t/o stay. Following further care plans/continuing to monitor.
--- NOTE | 2021-01-31 11:26 | P.PN_ITS ---
[facility] Anesthesia Checklist - Patient Identification Patient Identification: Arm Band - Structural Data Admitted From: Inpatient Planned Operative Procedure/s: Bronchoscopy Consent for Planned Operative Procedure(s) Verified: Yes - NPO Status Verified Time NPO: 00:00 - Additional verifications Anesthesia Reactions: No Hx Blood Transfusions: No Blood Transfusion Reaction: No - Airway Assessment C-Spine Mobility Assessed: No TMJ Mobility Assessed: No Dentition: Dentures-poor fitting - Neurological Assessment Level of Consciousness: Drowsy, Restless Hx Seizures: No Numbness or tingling in extremities: No - Anesthesia Plan Anesthesia Risk discussed: No Anesthesia Plan: Patient unable to respond/answer ASA Class: IV (E) Anesthesia Type: General [facility] History I have reviewed the patient's past medical history: Yes Medical History: Reports:: Cardiomyopathy, Congestive Heart Failure, Coronary Artery Disease, Gastroesophageal Reflux Disease(GERD), Hyperlipidemia, Hypertension Denies:: Cancer, Diabetes Mellitus Type 1, Diabetes Mellitus Type 2, Internal Pacemaker, MRSA, Seizures *Have you ever received a pneumonia vaccine?: Yes *Have you received a flu vaccine this season?: Yes Other Medical History: Denies: Blood Transfusion Reaction Anesthesia experience/problems:: Unknown Laterality Cases: Right: Arthroscopy Knee, Bilateral: Myringotomy (Ear Tubes), Tonsillectomy Other Surgeries: Yes: No Previous Surgery, Appendectomy, Cardiac Catheterization, Cholecystectomy, Colonoscopy. No: Pacemaker Amputation: No Fractures: No - *Social History Smoking Status: Former smoker # Packs/Day (cigarettes): 3 #Yrs smoked (if former smoker): 30 Alcohol Intake: current Alcohol Intake Frequency:: holidays/special occasions only Substance Use Type: denies use *Occupational Status:: retired Housing: house Household Members: none *Travel in the last 8 weeks: None Family Hx:: No significant family history
--- NOTE | 2021-01-31 11:45 | PC.NURSE ---
pt back to floor from surgical room. He is intubated #8 ET. Vent settings 100% AC, 20, 440, 15/-. OG tube inserted and is 60 @ the lip. Sinus tach with BBB and PVCs on tele. EKG completed and read by SHANNON Grimes. Dr. Juarez updated.
--- NOTE | 2021-01-31 12:00 | HMH.ANESI ---
[facility] Anesthesia Record Part I Intake, IV Amount: 300 Estimated blood loss (mL): 0 Urine output (mL): 250 Blood Pressure: 135/93 SaO2: 91 Pulse Rate: 109 Respiratory Rate: 21 Temperature: 98.5 F Patient is:: Intubated, Ventilator Stable to PACU at:: 11:45
--- NOTE | 2021-01-31 12:08 | ECG_ITS ---
APPROVED REPORT Exam: Resting ECG HR:104 bpm ECG Measurements Heart Rate 104 AXES MO 178 P 4 QRSd 152 QRS -48 QT 368 T 106 QTc 483 Conclusion Sinus tachycardia with premature atrial complexes with aberrant conduction Left axis deviation Left bundle branch block Abnormal ECG Electronically signed by : Pranav Arias, 02/01/2021 07:41:17
--- NOTE | 2021-01-31 12:30 | PC.NURSE ---
Dr. Hensley notified of critical ABG results to include pH 7.0 and pCO2 80
[2021-01-31 12:31] LABS: ABG HCO3 20.9 mmhg (22.0-26.0); ABG Oxygen Saturation 87 % (90-100); ABG PO2 73.2 mmhg (80-100); ABG TCO2 23.5 mmhg (23-27)
[2021-01-31 12:34] LABS: Allen's Test Patient Unable; Oxygen 100 %; PEEP 12; Source Left Radial; Tidal Volume 440; Vent Rate 20
[2021-01-31 12:35] LABS: ABG PCO2 82.8 mmhg (35.0-45.0); ABG PH 7.02 mmol/L (7.35-7.45)
--- NOTE | 2021-01-31 13:18 | PC.NURSE ---
Dr. Hensley @ [facility]. He increased PEEP to 16. All other vent settings remain the same. Per Dr. Hensley: Propofol gtt started @ 40mcg/kg/min and Fentany gtt starte @ 50mcg/hr. Dr. Hensley wants him heavily sedated in an attempt for lung healing. Dr. Hensley has ordered arterial line monitoring. home connect lpn (Shirley Prado) notified an is collaborating with oncall general surgeon.
--- NOTE | 2021-01-31 13:25 | HMH.PULMPN ---
Internal Medicine - PN: Subj *Date: 01/31/21 *Time: 13:25 Interval history: Patient respiratory status continued to worsen Exam - Constitutional Constitutional:: Absent: no acute distress, comfortable, healthy appearing Comment:: In respiratory distress - HENMT Exam HENMT: Present: normocephalic - Eye Exam Eyes:: Present: eyelids normal - Neck Exam Neck:: Present: normal visual inspection - Respiratory Exam Respiratory:: Present: bibailar crackels heard, respiratory distress, decreased breath sounds. Absent: able to speak in complete sentences - Cardiovascular Exam Cardiac:: Present: S1, S2 - GI Exam GI:: Present: soft, obese - Skin Exam Skin: Present: warm, no rash - Neurological Exam Neurological: Present: alert, awake, normal cognition - Extremities Exam Extremities: Present: no cyanosis, no clubbing, no edema - Psychiatric Exam Psychiatric: Present: normal affect Assessment and Plan (1) Pneumonia Status: Acute Qualifiers: Pneumonia type: due to unspecified organism Laterality: bilateral Lung location: lower lobe of lung Qualified Code(s): J18.9 - Pneumonia, unspecified organism Category: Medical Code(s): J18.9 - Pneumonia, unspecified organism (2) Acute kidney injury Status: Acute Category: Medical Code(s): N17.9 - Acute kidney failure, unspecified (3) Obesity (BMI 30-39.9) Status: Acute Category: Medical Code(s): E66.9 - Obesity, unspecified (4) Respiratory failure, acute Status: Acute Qualifiers: Respiratory failure complication: hypoxia Qualified Code(s): J96.01 - Acute respiratory failure with hypoxia Category: Medical Code(s): J96.00 - Acute respiratory failure, unspecified whether with hypoxia or hypercapnia (5) Obesity, Class II, BMI 35-39.9 Status: Acute Category: Medical Code(s): E66.9 - Obesity, unspecified (6) Nonischemic cardiomyopathy Status: Chronic Category: Medical Code(s): I42.8 - Other cardiomyopathies - Assessment and plan all Dx Assessment and Plan for all problems:: #Acute hypoxic respiratory failure needing mechanical ventilation: #Hospital associated pneumonia: #Diffuse alveolar hemorrhage: Mr. Saul is a 75-year-old male greater than [id number] smoking she last smoked around 10 to 12 years ago , congestive heart failure with EF of 30 to 40%, recently diagnosed with COVID-19 pneumonia around late December 2020 during which he was treated with remdesivir dexamethasone along with antibiotics and discharged on 3 L nasal cannula along with DuoNebs every 6 hours scheduled which he has not been using presented to hospital with worsening respiratory failure along with subjective fevers and chills and pulmonary was called for further management patient denies any worsening productive phlegm. Denies any worsening lower extremity swelling. CTA no evidence of PE however showed bilateral diffuse groundglass opacities with evidence of traction bronchiectasis. Neutrophilic leukocytosis with no evidence of eosinophilia. Bronchoscopy performed today diffuse alveolar hemorrhage Plan: -Intubated and sedated appears comfortable. -Acute hypoxic respiratory: Needing mechanical ventilation and bronchoscopy concern for diffuse alveolar hemorrhage. We will continue antibiotics awaiting infectious work-up and if negative will consider pulse dose steroids. Follow with autoimmune work-up. Patient currently on 440 of tidal volume, rate of 20, PEEP of 16 and FiO2 of 100. Recent ABG showed significant respiratory acidosis after which PEEP was increased to 16, will follow with repeat gas in 2 hours. Continue DuoNebs every 6 hours scheduled along with budesonide every 12 -Afebrile. Hemodynamically stable. Neutrophilic leukocytosis with thrombocytosis. No eosinophilia noted. Continue vancomycin, cefepime and levofloxacin. Follow-up MRSA screen, BAL cultures. Blood cultures no growth 48 hours -History of congestive heart with E
[2021-01-31 13:57] LABS: Basophils # 0.3 K/mm3 (0-0.2); Basophils % 0.8 % (0.1-2.0); Eosinophils # 0.2 K/mm3 (0.0-0.4); Eosinophils % 0.4 % (0.1-12.0); Hematocrit 41.6 % (42.0-52.0); Hemoglobin 11.7 g/dL (14.1-18.0); Lymphocytes # 3.2 K/mm3 (0.7-4.5); Lymphocytes % 8.4 % (10-50); Mean Corpuscular HGB Conc 28.1 g/dL (31.8-35.4); Mean Corpuscular Hemoglobin 24.7 pg (27.0-31.2); Mean Corpuscular Volume 87.9 fl (80-94); Mean Platelet Volume 6.9 fl (7.4-10.4); Monocytes # 1.5 K/mm3 (0.1-1.0); Neutrophils # 33.3 K/mm3 (1.8-7.8); Neutrophils % 86.4 % (37.0-80.0); Red Blood Count 4.73 M/mm3 (4.60-6.20); Red Cell Distribution Width 15.7 % (11.5-17.5); White Blood Count 38.5 K/mm3 (4.8-10.8)
[2021-01-31 14:00] LABS: Platelet Count 1387 K/mm3 (142-424)
--- NOTE | 2021-01-31 14:00 | PC.NURSE ---
Notified Dr. Hensley that plt count is 1387.
--- NOTE | 2021-01-31 14:03 | HMH.BRONCH ---
- Procedure: Date: 01/31/21 Patient Date of :: 1945 Procedure Performed:: Bronchoscopy with BAL and transbronchial biopsy Indications:: Pneumonia Performing Provider:: Ravi Hensley MD Referring Provider:: Dr. Juarez Sedation:: General anesthesia Procedure:: Clean therapeutic bronchoscopy was advanced to a size ET tube airways were examined up to subsegmental bronchi, airways appeared grossly normal no evidence of obvious hemorrhage or mucous plugging noted. Airways appear clear. Bronchoalveolar lavage was performed the right middle lobe medial segment and is consistent with diffuse alveolar hemorrhage. BAL fluid was sent for BAL cell count differential, Gram stain fungal and AFB staining along with cytopathology. Transbronchial biopsies was performed the right lower lobe lateral segment. Biopsy sample sent for cytopathology. Findings:: Please see the procedure note Recommendations:: Please see the progress note from today Complications:: This procedure was complicated by patient's critical respiratory status. Bronchoscopy needed to be refractory multiple times to regain normal oxygen saturations. Estimated blood obtained (mL): 0
[2021-01-31 14:09] LABS: Chloride 107 mmol/L (98-107); Potassium 5.2 mmoL/L (3.5-5.1); Sodium 142 mmol/L (136-145)
[2021-01-31 14:11] LABS: Alanine Aminotransferase 108 U/L (12-78); Aspartate Amino Transferase 144 U/L (17-59); Blood Urea Nitrogen 51 mg/dl (9-20); Creatine Kinase 108 U/L (55-170); Creatinine Clearance Estimated 52 mL/min (50-200); Estimated Glomerular Filt Rate 37 ml/min (>60); GFR (African American) 45 ML/MIN (>60); Magnesium 2.1 mg/dl (1.6-2.3); Phosphorous 11.3 mg/dl (2.5-4.5)
[2021-01-31 14:12] LABS: Albumin Level 3.7 g/dl (3.5-5.0); Alkaline Phosphatase 158 U/L (38-126); Anion Gap 19.2 mEq/L (5-15); Bilirubin,Total 1.1 mg/dl (0.2-1.3); Calcium 9.3 mg/dl (8.4-10.2); Carbon Dioxide 21 mmol/L (22.0-30.0); Globulin 3.8 g/dL (1.3-3.2); Glucose 300 mg/dl (74-100); Lipase 83 U/L (23-300); Total Protein,Serum 7.5 g/dl (6.3-8.2); Triglycerides 220 mg/dl (30-150)
[2021-01-31 14:17] LABS: C-Reactive Protein 104.6 mg/L (0-4)
--- NOTE | 2021-01-31 14:25 | PC.NURSE ---
Pt hypotension. SBP [address] Hensley and Dr. Juarez. Dr. Juarez ordered Levophed gtt. Order faxed to pharmacy. Dr. Hensley ordered a repeat ABG and a repeat CXR. Orders entered on his behalf. Levo gtt started @ 10mcg/min.
--- NOTE | 2021-01-31 14:36 | XR_ITS ---
PROCEDURE: XR CHEST PORTABLE CLINICAL HISTORY: resp failure COMPARISON: CR XR CHEST 2V from 01/28/2021 CR XR CHEST PORTABLE from 01/29/[address] ANGIO CHEST from 01/30/2021 CR XR CHEST AP from 01/31/2021 FINDINGS: Enteric tube is noted with its tip below the diaphragm outside the field of view of the current study. ET tube is noted with its tip measuring 3 centimeters above the level of melly. Bilateral hazy infiltrates are noted, worse in the left lower zone. Previously noted left upper zone infiltrates demonstrate marginal improvement compared to the prior study. The cardiac margins are partially obscured. Mild cardiomegaly is noted. vascular calcification is noted. Degenerative changes of the visualized thoracic spine. The lungs are clear without infiltrates, suspicious nodules, or pleural effusions. No acute bony abnormalities. IMPRESSION: Bilateral infiltrates. Marginal improvement in the left upper zone infiltrate. Dictated by: Maggie Pat 01/31/2021 15:16 Maggie Pat in [facility] 01/31/2021 15:16
--- NOTE | 2021-01-31 14:41 | PC.NURSE ---
notified Dr. Hensley of the following: pH 7.00, CO2 79, and HCO3 19. Dr. Hensley ordered 1amp of Bicarb NOW and to increase vent rate to 26. He also ordered to repeat ABG in 2hrs. Notified RT (Chelsey). Faxed order for Bicarb to pharmacy. SBP 75. Levo gtt increased to 12mcg/min.
--- NOTE | 2021-01-31 14:53 | P.PCN_ITS ---
[facility] Procedure Note Procedure Note:: I was consulted to come evaluate the patient for arterial line placement. The patient is currently intubated requiring frequent ABGs and has had some episodes of hypotensive. I do believe arterial line is appropriate at this time. Family member at bedside did provide consent. Arterial line was placed in the left radial artery under ultrasound guidance and sterile conditions. There was good flush. No blood loss. Patient tolerated procedure well. Sutured in and sterile dressing placed over top. Total procedure time was 30 minutes.
--- NOTE | 2021-01-31 15:07 | PC.NURSE ---
SBP 71. Levo gtt increased to 20mcg/min. Updated Dr. Hensley.
[2021-01-31 15:13] LABS: Microscopic, Urine URINE MICROSCOPIC (MICROSCOPIC)
[2021-01-31 15:16] LABS: Appearance,Urine CLOUDY (Clear); Bilirubin,Urine Negative (Negative); Blood, Urine 3+ (Negative); Color,Urine YELLOW (Yellow); Glucose,Urine (UA) Negative (Negative); Ketones,Urine Negative (Negative); Leukocyte Esterase,Urine Negative (Negative); Nitrate,Urine Negative (Negative); Protein,Urine 2+ (Negative); Specific Gravity, Urine >= 1.030 (1.005-1.030); Urobilinogen,Urine 0.2 EU/dl (0.2)
[2021-01-31 15:21] LABS: Amorphous Sediment,Urine 3+ /lpf
--- NOTE | 2021-01-31 15:49 | PC.NURSE ---
Dr. Hensley has ordered a central line. Called Dr. Rankin and notified him.
--- NOTE | 2021-01-31 16:09 | PC.NURSE ---
Sputum order cancelled. Sputum obtained during Bronchospy after intubation.
--- NOTE | 2021-01-31 16:15 | PC.NURSE ---
Dr. Rankin @ BS inserting left NH TLDL.
--- NOTE | 2021-01-31 16:25 | XR_ITS ---
PROCEDURE: XR CHEST PORTABLE CLINICAL HISTORY: new left SC deep line COMPARISON: CR XR CHEST PORTABLE from 01/29/[address] ANGIO CHEST from 01/30/2021 CR XR CHEST AP from 01/31/2021 CR XR CHEST PORTABLE from 01/31/2021 FINDINGS: A left-sided subclavian central line is seen with the tip just beyond the junction of the innominate vein and SVC. Diffuse ill-defined patchy pneumonic infiltrates remain in both lung reyes though there may have been some slight interval clearing at the right base. Stable moderate generalized cardiomegaly is again noted. The NG tube is seen in the esophagus and upper portion of the stomach IMPRESSION: Left-sided subclavian central line, the line could be advanced 3-4 cm for better positioning. Dictated by: Dr. Franck Nunes MD 02/01/2021 08:06 Dr. Franck Nunes MD in [facility] 02/01/2021 08:06
--- NOTE | 2021-01-31 16:34 | HMH.PROC ---
[facility] Procedure Note Procedure Note:: Preoperative diagnosis: Need for central venous access for multiple pressors Postoperative diagnosis: Same Procedure performed: Placement of 7 [place] triple-lumen catheter and left subclavian vein Anesthesia: Local Patient was positioned in Trendelenburg position. Left neck and chest were prepped and draped in the standard surgical fashion. Local anesthetic was infiltrated inferior to the left clavicle medial to the deltopectoral groove. With several passes of the needle the left subclavian vein was cannulated with good return of blood flow. Guidewire was inserted. Small incision was made at the guidewire insertion site. Subcutaneous tissues were dilated. 7 [place] triple-lumen catheter was placed over the guidewire using Seldinger technique. It was secured to the skin at approximately the 15 cm andrea. All ports flushed and aspirated without difficulty. Clean dry sterile dressing was applied. Chest x-ray being performed at the time of this dictation.
--- NOTE | 2021-01-31 16:37 | PC.NURSE ---
SBP 80. Levo gtt increased to 30mcg/min.
[2021-01-31 17:18] LABS: ABG Base Excess -7.1 mmol/L (-2.4-2.3); ABG Oxygen Saturation 99 % (90-100); ABG PCO2 45.6 mmhg (35.0-45.0); ABG PH 7.26 mmol/L (7.35-7.45); ABG PO2 226.1 mmhg (80-100); ABG TCO2 21.4 mmhg (23-27); Oxygen 100 %; Tidal Volume 440
[2021-01-31 17:19] LABS: Allen's Test Patient Unable; PEEP 16; Source Left Radial; Vent Rate 26
--- NOTE | 2021-01-31 18:40 | PC.NURSE ---
pt is agitated and attempting to pull @ ET tube. Is bucking the vent. Fentanyl gtt increased to 100mcg/hr and Propofol gtt increased to 50mcg/kg/min.
[2021-02-01] VITALS (99 sets, daily range): BP systolic 87–154; BP diastolic 40–80; PULSE 63–95; RESP 21–35; TEMP 36.5–37.9; O2SAT 90–98; BMI 36.1
--- NOTE | 2021-02-01 01:06 | PC.NURSE ---
Pt assessment summary: Art line waveform is dampened, draws well. Transducer leveled & zeroed. Square wave test was performed. Pulses equal, cap refill <3 seconds. Pt withdraws to deep pain, pupils are PERRL. Skin is CDI, no edema noted. OG placement confirmed w air bolus, 60 @ lip. At start of shift: Levo- 30 Prop-50 Fent- 100
--- NOTE | 2021-02-01 03:16 | PC.NURSE ---
Pt had a period of spontaneous awakening on Prop-50, Fent- 150. Pt followed commands, nodded head yes. Pt was diaphoretic, rectal temp was 98.7. FSBG was 197. Breath sounds auscultated, diminished more on left than right. Tremors noted to BUE. Sedation increased to Fent- 200. At this time pt is dry and warm. BP was 138/71 at time of event. Sats dropped to low 90s. Pt has recovered since, O2 is 97, BP 121/71, HR 78.
[2021-02-01 03:32] LABS: POC Glucose,Bedside 197 (70-110)
--- NOTE | 2021-02-01 04:35 | XR_ITS ---
PROCEDURE: XR CHEST PORTABLE CLINICAL HISTORY: resp distress COMPARISON: CT CT ANGIO CHEST from 01/30/2021 CR XR CHEST AP from 01/31/2021 CR XR CHEST PORTABLE from 01/31/2021 CR XR CHEST PORTABLE from 01/31/2021 FINDINGS: There is gross generalized cardiomegaly. Patchy ill-defined pneumonic infiltrates are seen in both lung reyes. There are scattered areas of confluency and suggestive of ground-glass opacity. There is an endotracheal tube in place with the tip 2-3 cm above the melly. The left subclavian central line is again seen with the tip in the SVC just beyond the junction with the innominate vein. There is an NG tube seen descending the esophagus with tip in the upper portion of the stomach. IMPRESSION: Gross generalized cardiomegaly, persistent bilateral ill-defined irregular opacities likely due to a combination of chronic changes with superimposed acute pneumonic infiltrates with no significant interval improvement from recent studies Dictated by: Dr. Franck Nunes MD 02/01/2021 16:11 Dr. Franck Nunes MD in [place] 02/01/2021 16:11
--- NOTE | 2021-02-01 04:46 | PC.NURSE ---
Gtt titrations: Levo- 2100-28 mcg/min 2136-15 2200-26 2245-22 0000-20 0045-18 0115-16 0200-14 0230-12 Fent- 2100-125mcg/kg/min 2200-150 0300-200
--- NOTE | 2021-02-01 05:08 | PC.NURSE ---
Pt had a significant drop in BP after being sat up for xray, BP went from 131/78 to 108/62.
--- NOTE | 2021-02-01 05:54 | PC.NURSE ---
Addendum entered by Demetria Swartz RN 02/01/21 06:01: UOP ranging from 10-25, urine is clear and yellow. OG @ 60 at the lip. NO acute changes overnight. 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 Levo @ 12, BP maintaining @ 112/62. Lungs are bilaterally diminished, left more so than right. Fio2 @ 100, TV @ 440, RR @ 26, PEEP 16. UOP has ranged form 25-
[2021-02-01 05:56] LABS: Basophils # 0.1 K/mm3 (0-0.2); Basophils % 0.4 % (0.1-2.0); Hematocrit 36.3 % (42.0-52.0); Lymphocytes % 6.6 % (10-50); Mean Corpuscular HGB Conc 28.7 g/dL (31.8-35.4); Mean Corpuscular Hemoglobin 24.1 pg (27.0-31.2); Mean Corpuscular Volume 83.8 fl (80-94); Mean Platelet Volume 6.8 fl (7.4-10.4); Monocytes # 2.3 K/mm3 (0.1-1.0); Monocytes % 7.7 % (1.7-9.3); Neutrophils # 25.3 K/mm3 (1.8-7.8); Neutrophils % 85.2 % (37.0-80.0); Red Blood Count 4.33 M/mm3 (4.60-6.20); Red Cell Distribution Width 15.8 % (11.5-17.5); White Blood Count 29.7 K/mm3 (4.8-10.8)
[2021-02-01 06:22] LABS: Chloride 107 mmol/L (98-107); Potassium 5.1 mmoL/L (3.5-5.1); Sodium 140 mmol/L (136-145)
[2021-02-01 06:25] LABS: Alanine Aminotransferase 111 U/L (12-78); Albumin Level 3.3 g/dl (3.5-5.0); Albumin/Globulin Ratio 0.9 (1.1-1.8); Alkaline Phosphatase 139 U/L (38-126); Anion Gap 17.1 mEq/L (5-15); Aspartate Amino Transferase 66 U/L (17-59); Bilirubin,Total 0.6 mg/dl (0.2-1.3); Blood Urea Nitrogen 67 mg/dl (9-20); Calcium 9.1 mg/dl (8.4-10.2); Carbon Dioxide 21 mmol/L (22.0-30.0); Creatinine Clearance Estimated 34 mL/min (50-200); Estimated Glomerular Filt Rate 22 ml/min (>60); GFR (African American) 27 ML/MIN (>60); Globulin 3.5 g/dL (1.3-3.2); Glucose 191 mg/dl (74-100); Total Protein,Serum 6.8 g/dl (6.3-8.2)
[2021-02-01 06:58] LABS: Hemoglobin 10.4 g/dL (14.1-18.0)
[2021-02-01 06:59] LABS: MANUAL DIFFERENTIAL MANUAL DIFFERENTIAL (MANUAL DIFF); Platelet Count 1080 K/mm3 (142-424)
[2021-02-01 07:39] LABS: ABG Base Excess -6.2 mmol/L (-2.4-2.3); ABG Oxygen Saturation 98 % (90-100); ABG PCO2 48.7 mmhg (35.0-45.0); ABG PH 7.25 mmol/L (7.35-7.45); ABG TCO2 22.5 mmhg (23-27)
[2021-02-01 07:42] LABS: Allen's Test Patient Unable; Oxygen 100 %; PEEP 16; Tidal Volume 440; Vent Rate 26
[2021-02-01 07:51] LABS: Hypochromasia 2+; Lymphocytes % 8 % (10-50); Monocytes % 9 % (2-9); Neutrophils % 83 % (42-76); Nucleated Red Blood Cells 1; Platelet Estimate Marked Increase; Total Cells Counted 100
--- NOTE | 2021-02-01 08:14 | HMH.ACPN2 ---
Internal Medicine - PN: Subj *Date: 02/01/21 *Time: 08:16 Interval history: Patient has remained stable overnight. Urine output is between 10 and 25 mL/h. Family has remained at bedside. Patient has awakened multiple times throughout the night despite receiving maximal doses of sedation Exam Vital signs and Labs for Last 24 Hours: Temp Pulse Resp BP Pulse Ox 98.6 F 81 30 H 94/58 L 96 02/01/21 08:00 02/01/21 08:00 02/01/21 08:00 02/01/21 08:00 02/01/21 08:00 Laboratory Results - last 24 hr 01/31/21 06:07: Total Counted 100, Neutrophils % (Manual) 85 H, Lymphocytes % (Manual) 5 L, Monocytes % (Manual) 10 H, Platelet Estimate Marked increase, RBC Morphology Normal 01/31/21 06:07: Vancomycin Trough 20.6 H 01/31/21 07:15: Specimen Source R radial, O2 % 100%, ABG pH 7.44, ABG pCO2 32.7 L, ABG pO2 52.6 L, ABG HCO3 21.8 L, ABG Total CO2 22.8 L, ABG O2 Saturation 88 L, ABG Base Excess -2.4, Clive Test Acceptable 01/31/21 12:29: Specimen Source Left radial, O2 % 100, ABG pH 7.02 L*, ABG pCO2 82.8 H, ABG pO2 73.2 L, ABG HCO3 20.9 L, ABG Total CO2 23.5, ABG O2 Saturation 87 L*, ABG Base Excess -10.0 L, Clive Test Patient unable, Vent Rate 20, Tidal Volume 440, PEEP 12 01/31/21 13:50: Total Creatine Kinase 108, C-Reactive Protein 104.6 H 01/31/21 13:50: WBC 38.5 H* D, RBC 4.73, Hgb 11.7 L, Hct 41.6 L, MCV 87.9, MCH 24.7 L, MCHC 28.1 L, RDW 15.7, Plt Count 1387 H* D, MPV 6.9 L, Neut % (Auto) 86.4 H, Lymph % (Auto) 8.4 L, Collin % (Auto) 4.0, Eos % (Auto) 0.4, Baso % (Auto) 0.8, Neut # (Auto) 33.3 H, Lymph # (Auto) 3.2, Collin # (Auto) 1.5 H, Eos # (Auto) 0.2, Baso # (Auto) 0.3 H 01/31/21 13:50: Sodium 142, Potassium 5.2 H D, Chloride 107, Carbon Dioxide 21 L, Anion Gap 19.2 H, BUN 51 H, Creatinine 1.80 H D, Estimated Creat Clear 52, Estimated GFR 37 L, Est GFR ( Amer) 45 L D, Glucose 300 H D, Calcium 9.3, Total Bilirubin 1.1, AST 144 H D, ALT 108 H D, Alkaline Phosphatase 158 H, Total Protein 7.5, Albumin 3.7, Globulin 3.8 H, Albumin/Globulin Ratio 1.0 L, Triglycerides 220 H, Lipase 83 01/31/21 13:50: Phosphorus 11.3 H, Magnesium 2.1 01/31/21 15:00: Urine Color Yellow, Urine Appearance Cloudy, Urine pH 5.0, Ur Specific [place] >= 1.030, Urine Protein 2+, Urine Glucose (UA) Negative, Urine Ketones Negative, Urine Blood 3+, Urine Nitrate Negative, Urine Bilirubin Negative, Urine Urobilinogen 0.2, Ur Leukocyte Esterase Negative, Urine RBC 10-20, Urine WBC None, Ur Squamous Epith Cells 10-20, Amorphous Sediment 3+, Urine Bacteria None 01/31/21 17:16: Specimen Source Left radial, O2 % 100, ABG pH 7.26 L, ABG pCO2 45.6 H, ABG pO2 226.1 H, ABG HCO3 20.0 L, ABG Total CO2 21.4 L, ABG O2 Saturation 99, ABG Base Excess -7.1 L, Clive Test Patient unable, Vent Rate 26, Tidal Volume 440, PEEP 16 02/01/21 02:53: POC Glucose 197 H 02/01/21 05:45: WBC 29.7 H*, RBC 4.33 L, Hgb 10.4 L D, Hct 36.3 L, MCV 83.8, MCH 24.1 L, MCHC 28.7 L, RDW 15.8, Plt Count 1080 H*, MPV 6.8 L, Neut % (Auto) 85.2 H, Lymph % (Auto) 6.6 L, Collin % (Auto) 7.7, Eos % (Auto) 0.0 L, Baso % (Auto) 0.4, Neut # (Auto) 25.3 H, Lymph # (Auto) 2.0, Collin # (Auto) 2.3 H, Eos # (Auto) 0.0, Baso # (Auto) 0.1, Total Counted 100, Neutrophils % (Manual) 83 H, Lymphocytes % (Manual) 8 L, Monocytes % (Manual) 9, Nucleated RBCs 1, Platelet Estimate Marked increase, Hypochromasia 2+ 02/01/21 05:45: Sodium 140, Potassium 5.1, Chloride 107, Carbon Dioxide 21 L, Anion Gap 17.1 H, BUN 67 H D, Creatinine 2.80 H D, Estimated Creat Clear 34, Estimated GFR 22 L, Est GFR ( Amer) 27 L D, Glucose 191 H D, Calcium 9.1, Total Bilirubin 0.6, AST 66 H D, ALT 111 H, Alkaline Phosphatase 139 H, Total Protein 6.8, Albumin 3.3 L D, Globulin 3.5 H, Albumin/Globulin Ratio 0.9 L 02/01/21 06:00: Specimen Source Art line, O2 % 100, ABG pH 7.25 L, ABG pCO2 48.7 H, ABG pO2 107.0 H, ABG HCO3 21.0 L, ABG Total CO2 22.5 L, ABG O2 Saturation 98, ABG Base Excess -6.2 L, Clive Test Patient unable, Vent Rate 26, Tidal Volume 440, PEEP 16 I & O
--- NOTE | 2021-02-01 12:31 | PC.NURSE ---
gave okay for tube feeds to be started. TF initiated, Pulmocare @ 20 mls/hr through OGT, verified placement w/ AM CXR and auscultated. Family updated on POC, son @ bedside, no needs voiced @ this time.
--- NOTE | 2021-02-01 14:00 | HMH.ACPN ---
Internal Medicine - PN: Subj *Date: 02/01/21 *Time: 14:00 Exam Vital signs and Labs for Last 24 Hours: Temp Pulse Resp BP Pulse Ox 98.1 F 88 28 H 96/58 L 96 02/01/21 13:00 02/01/21 13:30 02/01/21 13:30 02/01/21 13:30 02/01/21 13:30 Laboratory Results - last 24 hr 01/31/21 13:50: Total Creatine Kinase 108, C-Reactive Protein 104.6 H 01/31/21 13:50: WBC 38.5 H* D, RBC 4.73, Hgb 11.7 L, Hct 41.6 L, MCV 87.9, MCH 24.7 L, MCHC 28.1 L, RDW 15.7, Plt Count 1387 H* D, MPV 6.9 L, Neut % (Auto) 86.4 H, Lymph % (Auto) 8.4 L, Cross % (Auto) 4.0, Eos % (Auto) 0.4, Baso % (Auto) 0.8, Neut # (Auto) 33.3 H, Lymph # (Auto) 3.2, Cross # (Auto) 1.5 H, Eos # (Auto) 0.2, Baso # (Auto) 0.3 H 01/31/21 13:50: Sodium 142, Potassium 5.2 H D, Chloride 107, Carbon Dioxide 21 L, Anion Gap 19.2 H, BUN 51 H, Creatinine 1.80 H D, Estimated Creat Clear 52, Estimated GFR 37 L, Est GFR ( Amer) 45 L D, Glucose 300 H D, Calcium 9.3, Total Bilirubin 1.1, AST 144 H D, ALT 108 H D, Alkaline Phosphatase 158 H, Total Protein 7.5, Albumin 3.7, Globulin 3.8 H, Albumin/Globulin Ratio 1.0 L, Triglycerides 220 H, Lipase 83 01/31/21 13:50: Phosphorus 11.3 H, Magnesium 2.1 01/31/21 15:00: Urine Color Yellow, Urine Appearance Cloudy, Urine pH 5.0, Ur Specific [place] >= 1.030, Urine Protein 2+, Urine Glucose (UA) Negative, Urine Ketones Negative, Urine Blood 3+, Urine Nitrate Negative, Urine Bilirubin Negative, Urine Urobilinogen 0.2, Ur Leukocyte Esterase Negative, Urine RBC 10-20, Urine WBC None, Ur Squamous Epith Cells 10-20, Amorphous Sediment 3+, Urine Bacteria None 01/31/21 17:16: Specimen Source Left radial, O2 % 100, ABG pH 7.26 L, ABG pCO2 45.6 H, ABG pO2 226.1 H, ABG HCO3 20.0 L, ABG Total CO2 21.4 L, ABG O2 Saturation 99, ABG Base Excess -7.1 L, Clive Test Patient unable, Vent Rate 26, Tidal Volume 440, PEEP 16 02/01/21 02:53: POC Glucose 197 H 02/01/21 05:45: WBC 29.7 H*, RBC 4.33 L, Hgb 10.4 L D, Hct 36.3 L, MCV 83.8, MCH 24.1 L, MCHC 28.7 L, RDW 15.8, Plt Count 1080 H*, MPV 6.8 L, Neut % (Auto) 85.2 H, Lymph % (Auto) 6.6 L, Cross % (Auto) 7.7, Eos % (Auto) 0.0 L, Baso % (Auto) 0.4, Neut # (Auto) 25.3 H, Lymph # (Auto) 2.0, Cross # (Auto) 2.3 H, Eos # (Auto) 0.0, Baso # (Auto) 0.1, Total Counted 100, Neutrophils % (Manual) 83 H, Lymphocytes % (Manual) 8 L, Monocytes % (Manual) 9, Nucleated RBCs 1, Platelet Estimate Marked increase, Hypochromasia 2+ 02/01/21 05:45: Sodium 140, Potassium 5.1, Chloride 107, Carbon Dioxide 21 L, Anion Gap 17.1 H, BUN 67 H D, Creatinine 2.80 H D, Estimated Creat Clear 34, Estimated GFR 22 L, Est GFR ( Amer) 27 L D, Glucose 191 H D, Calcium 9.1, Total Bilirubin 0.6, AST 66 H D, ALT 111 H, Alkaline Phosphatase 139 H, Total Protein 6.8, Albumin 3.3 L D, Globulin 3.5 H, Albumin/Globulin Ratio 0.9 L 02/01/21 06:00: Specimen Source Art line, O2 % 100, ABG pH 7.25 L, ABG pCO2 48.7 H, ABG pO2 107.0 H, ABG HCO3 21.0 L, ABG Total CO2 22.5 L, ABG O2 Saturation 98, ABG Base Excess -6.2 L, Clive Test Patient unable, Vent Rate 26, Tidal Volume 440, PEEP 16 I & O for Last 24 hours: Intake & Output 01/29/21 01/30/21 01/31/21 02/01/21 23:59 23:59 23:59 23:59 Intake Total 4485 / 4485 240 / 240 2745.741 / 2745.741 3715.242 / 3715.242 Output Total 900 / 900 4500 / 4500 467 / 487 267 / 267 Balance 3585 / 3585 -4260 / -4260 2278.741 / 2258.741 3448.242 / 3448.242 Weight 107 kg 106.736 kg 105 kg 108.012 kg Microbiology Reports for the Last 24 Hours: Microbiology 01/30/21 11:08 Nose - Nasal MRSA Culture - Final Negative 01/31/21 Unknown Bronchial Washings Gram Stain - Final 01/31/21 Unknown Bronchial Lavage BRINDA Preparation - Final Assessment and Plan (1) Diffuse pulmonary alveolar hemorrhage Status: Acute Category: Medical Code(s): R04.89 - Hemorrhage from other sites in respiratory passages (2) Pneumonia Status: Ruled-out Qualifiers: Pneumonia type: due to unspecified organism Lat
--- NOTE | 2021-02-01 14:26 | PC.NURSE ---
Addendum entered by Angeline Ansari RN 02/01/21 18:50: 1850 - Fentanyl decreased to 145 mcg/hr Versed gtt decreased to 0.1 mg/kg/hr Addendum entered by Angeline Ansari RN 02/01/21 18:20: 1820 - Fentanyl decreased to 155 mcg/hr Versed gtt decreased to 0.11 mg/kg/hr Addendum entered by Angeline Ansari RN 02/01/21 17:44: 1700 - Fentanyl gtt decreased to 175 mcg/hr Versed gtt decreased to 0.13 mg/kg/hr 1730 - Fentanyl decreased to 165 mcg/hr Versed gtt decreased to 0.12 mg/kg/hr Addendum entered by Angeline Ansari RN 02/01/21 17:07: 1630 - Fentanyl gtt decreased to 185 mcg/hr Versed gtt decreased to 0.14 mg/kg/hr Addendum entered by Angeline Ansari RN 02/01/21 15:32: 1430 - MAP consistently < 65, Levo titrated to 8 mcg/min. Original Note: Levo gtt titrated down, maintaint SBP >65 : 0900 - 10 mcg/min 1100 - 8 mcg/min 1300 - 6 mcg/min Pt switched from propofol to versed this shift, versed gtt started @ 0.02 mg/kg/hr. Versed titrated q5min by 0.02, pt waking up and alarming vent, over breating vent 30-32 resp/min . Versed gtt currently @ max of 0.15 mg/kg/hr. Dr Juarez Aware Fentanyl gtt currently @ 200 mcg/hr. 0238 - CPOT = 0, will attempt to wean sedation as tolerated
--- NOTE | 2021-02-01 15:36 | PC.NURSE ---
Remains on mech vent, settings have not changed this shift. SPO2 ranging 95-98%, will have RT wean FIO2 as natasha. Lungs diminshed throughout w/ fine crackles noted in bilat lower lobes. Continues to over breathe vent, pt is resting much more comfortably and resps ranging 28-30/min. #8 ETT secured @ 24 cm @ lip. Secretions minimal this shift. Oral care performed Q2H. HR regular, BBB noted on tely w/ PVC's. Rate in 80's. +1 non-pitting general edema noted.Abdomen large, soft, round, non-tender w/ hypo-active BS. No BM thus far. OGT @ 60 cm. Tube feeds initiated this shift, tolerating well so far. Girard cath to drain @ bedside, urine yellow and clear. UOP ranging 15-40 mls/hr this shift, has began to trend down towards end of shift. Skin intact. Pt did have two episodes today in which he became diaphoretic, rectal temp performed and wnl both times. Pt turned Q2H. He does not tolerate repositioning or turning well, pt wakes up and begins bucking the vent right away. Recoop from these episodes takes anywhere from 10-15 minutes. D/t this pt's fitted sheet and draw sheet were not changed this shift. Pt was bath and gown and top sheet changed. Girard care performed. Scuds remain in place to BLE. Family @ bedside. Call wero w/in reach.
--- NOTE | 2021-02-01 20:00 | PC.NURSE ---
Cydney Maria, student nurse will be caring for this pt under my supervision.
[2021-02-02] VITALS (99 sets, daily range): BP systolic 88–139; BP diastolic 39–75; PULSE 54–98; RESP 26–29; TEMP 36.1–37.2; O2SAT 92–100; BMI 36.3
--- NOTE | 2021-02-02 01:18 | PC.NURSE ---
Pt remains intubated. Vent settings are as follows: AC, 100% FiO2, R 26, PEEP 16, TV 440. Arterial line, central line and peripheral lines patent. VSS. Pt does not tolerate stimulation well. Oral care and suctioning administered. Pt turned as tolerated. He is currently in (L) lateral position. Versed infusing @ 0.1 mg/kg/hr. Fentanyl infusing @ 170 mcg/hr. Levophed infusing @ 8 mcg/min. F/C draining to bedside with clear, yellow urine. Total output is 60 ml thus far. Pulmocare feedings have not been restarted this shift due to gastric residuals of 260 and 210. Will check residual again at 0400. Family remains at bedside. Will continue to monitor.
[2021-02-02 05:46] LABS: Basophils % 0.2 % (0.1-2.0); Hematocrit 33.1 % (42.0-52.0); Hemoglobin 9.5 g/dL (14.1-18.0); Lymphocytes # 1.3 K/mm3 (0.7-4.5); Lymphocytes % 7.1 % (10-50); Mean Corpuscular HGB Conc 28.7 g/dL (31.8-35.4); Mean Corpuscular Hemoglobin 24.2 pg (27.0-31.2); Mean Corpuscular Volume 84.3 fl (80-94); Mean Platelet Volume 6.7 fl (7.4-10.4); Monocytes # 1.1 K/mm3 (0.1-1.0); Neutrophils # 15.9 K/mm3 (1.8-7.8); Neutrophils % 86.6 % (37.0-80.0); Red Blood Count 3.93 M/mm3 (4.60-6.20); Red Cell Distribution Width 15.7 % (11.5-17.5); White Blood Count 18.3 K/mm3 (4.8-10.8)
[2021-02-02 05:47] LABS: Platelet Count 757 K/mm3 (142-424)
[2021-02-02 05:49] LABS: MANUAL DIFFERENTIAL MANUAL DIFFERENTIAL (MANUAL DIFF)
[2021-02-02 05:55] LABS: Chloride 108 mmol/L (98-107); Potassium 5.2 mmoL/L (3.5-5.1); Sodium 140 mmol/L (136-145)
[2021-02-02 05:58] LABS: Alanine Aminotransferase 90 U/L (12-78); Albumin Level 3.1 g/dl (3.5-5.0); Alkaline Phosphatase 105 U/L (38-126); Anion Gap 16.2 mEq/L (5-15); Aspartate Amino Transferase 84 U/L (17-59); Bilirubin,Total 0.5 mg/dl (0.2-1.3); Carbon Dioxide 21 mmol/L (22.0-30.0); Creatinine Clearance Estimated 19 mL/min (50-200); Estimated Glomerular Filt Rate 11 ml/min (>60); GFR (African American) 13 ML/MIN (>60); Globulin 3.1 g/dL (1.3-3.2); Total Protein,Serum 6.2 g/dl (6.3-8.2)
[2021-02-02 05:59] LABS: Calcium 8.5 mg/dl (8.4-10.2); Glucose 206 mg/dl (74-100)
--- NOTE | 2021-02-02 06:00 | XR_ITS ---
PROCEDURE: XR CHEST PORTABLE CLINICAL HISTORY: ETT and OG placement Respiratory failure COMPARISON: CT CT ANGIO CHEST from 01/30/2021 CR XR CHEST PORTABLE from 01/31/2021 CR XR CHEST PORTABLE from 01/31/2021 CR XR CHEST PORTABLE from 02/01/2021 FINDINGS: Endotracheal tube tip is well above the melly at the T4-T5 level. Left subclavian central venous line tip is in the region of the SVC. Orogastric tube tip is not visible on the film but is below the diaphragm. Diffuse opacities noted in the lungs which is more dense in the left lower lobe and may be due to diffuse pneumonia.. No acute bony abnormalities. IMPRESSION: Tubes and lines in good position. No change in the diffuse alveolar disease. Dictated by: Clive Magana MD 02/02/2021 08:24 Clive Magana MD in [facility] 02/02/2021 08:24
[2021-02-02 06:04] LABS: Blood Urea Nitrogen 94 mg/dl (9-20)
[2021-02-02 06:09] LABS: Hypochromasia 3+; Lymphocytes % 8 % (10-50); Microcytosis 1+; Monocytes % 3 % (2-9); Neutrophils % 85 % (42-76); Platelet Estimate Moderate Increase; Rouleaux 2+; Total Cells Counted 100
[2021-02-02 06:15] LABS: Peripheral Smear Review Scanned Result
--- NOTE | 2021-02-02 06:57 | PC.NURSE ---
notified of lab results creatinine 5.1, BUN 94
[2021-02-02 06:59] LABS: ABG Base Excess -9.1 mmol/L (-2.4-2.3); ABG HCO3 19.3 mmhg (22.0-26.0); ABG Oxygen Saturation 100 % (90-100); ABG PO2 278.5 mmhg (80-100)
[2021-02-02 07:07] LABS: Allen's Test Patient Unable; Oxygen 100 %; PEEP 16; Source ART LINE; Tidal Volume 440; Vent Rate 26
[2021-02-02 07:09] LABS: ABG PCO2 53.7 mmhg (35.0-45.0); ABG PH 7.17 mmol/L (7.35-7.45)
--- NOTE | 2021-02-02 09:02 | PC.NURSE ---
Addendum entered by Angeline Ansari RN 02/02/21 19:14: FIO2 turned down to 50% @ 1900 per RT Addendum entered by Angeline Ansari RN 02/02/21 15:11: FIO2 turned down to 60% @ 1510 Addendum entered by Angeline Ansari RN 02/02/21 11:20: FIO2 turned down to 70% @ 1120 Addendum entered by Angeline Ansari RN 02/02/21 10:51: FIO2 turned down to 80% @ 1050. Original Note: FIO2 turned down to 90% by RT @ this time.
--- NOTE | 2021-02-02 09:04 | HMH.ACPN2 ---
Internal Medicine - PN: Subj *Date: 02/02/21 *Time: 09:04 Interval history: Patient has remained stable overnight and is responding much better to sedation. Patient still breathes above the vent. Urine output has been poor. Tube feeds were started yesterday but have repeatedly been held due to high residuals. Family is at bedside. Son and daughter report that the patient's father did have pulmonary fibrosis later in life. Daughter herself has an autoimmune disease. Exam Vital signs and Labs for Last 24 Hours: Temp Pulse Resp BP Pulse Ox 98.9 F 95 H 27 H 113/54 L 98 02/02/21 07:58 02/02/21 08:32 02/02/21 08:32 02/02/21 08:32 02/02/21 08:32 Laboratory Results - last 24 hr 02/02/21 05:15: WBC 18.3 H D, RBC 3.93 L, Hgb 9.5 L, Hct 33.1 L, MCV 84.3, MCH 24.2 L, MCHC 28.7 L, RDW 15.7, Plt Count 757 H D, MPV 6.7 L, Neut % (Auto) 86.6 H, Lymph % (Auto) 7.1 L, [place] % (Auto) 6.0, Eos % (Auto) 0.0 L, Baso % (Auto) 0.2, Neut # (Auto) 15.9 H, Lymph # (Auto) 1.3, [place] # (Auto) 1.1 H, Eos # (Auto) 0.0, Baso # (Auto) 0.0, Total Counted 100, Neutrophils % (Manual) 85 H, Band Neutrophils % 4.0, Lymphocytes % (Manual) 8 L, Monocytes % (Manual) 3, Platelet Estimate Moderate increase, Hypochromasia 3+, Microcytosis 1+, Rouleaux 2+ 02/02/21 05:15: Sodium 140, Potassium 5.2 H, Chloride 108 H, Carbon Dioxide 21 L, Anion Gap 16.2 H, BUN 94 H D, Creatinine 5.10 H D, Estimated Creat Clear 19, Estimated GFR 11 L*, Est GFR ( Amer) 13 L* D, Glucose 206 H, Calcium 8.5, Total Bilirubin 0.5, AST 84 H D, ALT 90 H, Alkaline Phosphatase 105, Total Protein 6.2 L, Albumin 3.1 L, Globulin 3.1, Albumin/Globulin Ratio 1.0 L 02/02/21 07:00: Specimen Source Art line, O2 % 100, ABG pH 7.17 L*, ABG pCO2 53.7 H, ABG pO2 278.5 H, ABG HCO3 19.3 L, ABG Total CO2 21.0 L, ABG O2 Saturation 100, ABG Base Excess -9.1 L, Clive Test Patient unable, Vent Rate 26, Tidal Volume 440, PEEP 16 I & O for Last 24 hours: Intake & Output 01/30/21 01/31/21 02/01/21 02/02/21 11:59 11:59 11:59 11:59 Intake Total 4485 / 4485 50 / 50 6195.316 / 6240.316 1832.000 / 1832.000 Output Total 3400 / 3400 1400 / 1400 674 / 694 255 / 255 Balance 1085 / 1085 -1350 / -1350 5521.316 / 5546.316 1577.000 / 1577.000 Weight 235 lb 5 oz 231 lb 9 oz 238 lb 2 oz 239 lb 8 oz Microbiology Reports for the Last 24 Hours: Microbiology 01/30/21 11:08 Nose - Nasal MRSA Culture - Final Negative Narrative: Patient is heavily sedated. ET tube in place. Neck is supple. Lungs have fair aeration with basilar rales unchanged from yesterday. Heart has a regular rate and rhythm. Abdomen is obese and soft with hypoactive bowel sounds. Lower extremities have no edema BAL specimens show no fungal growth nor white blood cells. MRSA screen was negative. Blood cultures from admission are negative Assessment and Plan (1) Diffuse pulmonary alveolar hemorrhage Status: Acute Category: Medical Code(s): R04.89 - Hemorrhage from other sites in respiratory passages (2) Acute kidney injury Status: Acute Category: Medical Code(s): N17.9 - Acute kidney failure, unspecified (3) Pneumonia Status: Ruled-out Qualifiers: Pneumonia type: due to unspecified organism Laterality: bilateral Lung location: lower lobe of lung Qualified Code(s): J18.9 - Pneumonia, unspecified organism Category: Medical Code(s): J18.9 - Pneumonia, unspecified organism (4) Obesity (BMI 30-39.9) Status: Acute Category: Medical Code(s): E66.9 - Obesity, unspecified (5) Respiratory failure, acute Status: Acute Qualifiers: Respiratory failure complication: hypoxia Qualified Code(s): J96.01 - Acute respiratory failure with hypoxia Category: Medical Code(s): J96.00 - Acute respiratory failure, unspecified whether with hypoxia or hypercapnia (6) Obesity, Class II, BMI 35-39.9 Status: Acute Category: Medical Code(s): E66.9 - Obesity, unspecif
--- NOTE | 2021-02-02 09:45 | PC.NURSE ---
Addendum entered by Angeline Ansari RN 02/02/21 16:12: 1600 - CPOT = 0, FENTANYL GTT TITRATED TO 90 MCG/HR Addendum entered by Angeline Ansari RN 02/02/21 15:27: VERSED GTT TITRATED TO 0.09 MG/KG/HR @ 1520 Addendum entered by Angeline Ansari RN 02/02/21 14:09: 1400 - CPOT = 0, FENTANYL GTT TITRATED TO 100 MCG/HR Addendum entered by Angeline Ansari RN 02/02/21 12:50: 1250 - CPOT = 0, FENTANYL GTT TITRATED TO 110 MCG/HR Addendum entered by Angeline Ansari RN 02/02/21 12:00: 1200 - CPOT = 0, FENTANYL GTT TITRATED TO 120 MCG/HR Addendum entered by Angeline Ansari RN 02/02/21 11:19: 1100 - CPOT = 0, FENTANYL GTT TITRATED TO 130 MCG/HR Addendum entered by Angeline Ansari RN 02/02/21 10:33: 1000 - CPOT = 0, FENTANYL GTT TITRATED TO 140 MCG/HR Original Note: 0800 - CPOT = 0 ,FENTANYL GTT TITRATED TO 160 MCG/HR 0900 - CPOT = 0, FENTANYL GTT TITRATED TO 150 MCG/HR
--- NOTE | 2021-02-02 11:01 | PC.NURSE ---
Spoke w/ Dr. Hensley via phone @ this time. States to increase TV to 460 (RT notified of this ), continue to wean FIO2 slowly w/ a goal of reaching 50% as natasha. Give 500 cc Bolus of LR x1. Add additional 3 doses of kayexalate per GTube.
--- NOTE | 2021-02-02 12:57 | PC.NURSE ---
Addendum entered by Angeline Ansari RN 02/02/21 18:04: LEVOPHED GTT OFF @ 1800. Addendum entered by Angeline Ansari RN 02/02/21 16:13: LEVOPHED GTT TITRATED TO 2 MG/MIN @ 1600 Addendum entered by Angeline Ansari RN 02/02/21 15:26: LEVOPHED GTT TITRATED TO 4 MG/MIN @ 1520 Original Note: LEVOPHED GTT TITRATED TO 6 MG/MIN @ THIS TIME
[2021-02-02 14:31] LABS: Chloride 108 mmol/L (98-107)
[2021-02-02 14:32] LABS: Potassium 5.1 mmoL/L (3.5-5.1); Sodium 140 mmol/L (136-145)
[2021-02-02 14:34] LABS: Creatinine Clearance Estimated 17 mL/min (50-200); Estimated Glomerular Filt Rate 10 ml/min (>60); GFR (African American) 12 ML/MIN (>60)
[2021-02-02 14:35] LABS: Anion Gap 16.1 mEq/L (5-15); Calcium 8.2 mg/dl (8.4-10.2); Carbon Dioxide 21 mmol/L (22.0-30.0); Glucose 205 mg/dl (74-100)
[2021-02-02 14:40] LABS: Blood Urea Nitrogen 102 mg/dl (9-20)
--- NOTE | 2021-02-02 17:39 | PC.NURSE ---
No acute changes this shift. Pt has had a much better day than previous. FIO2 has been weaned to 60%. Lungs remain diminished throughout, but more so on left side. Breathing is much easier, rate 26-28/min. #8 ETT secured @ 24 cm. Secretions remain minimal, pt has been suctioned and oral care provided throughout day. HR regular, Frequent PVC's noted on monitor. Abdomen soft, large, round w/ hypoactive BS. Pt did have a X-large liquid BM this shift. Tube feedings continue to be held this shift, per MD. UOP remains minimal, 5-15 mls/hr. Skin remains intact, dressing in place to coccyx for preventive measures. PT turned Q2H. Pt tolerating turns well this shift, will awaken and alarm vent, but goes back to resting quickly after. Pt bathed and linens changed. Girard care performed. Scud in place to BLE. Daughter @ bedside. No needs voiced. See previous notes for gtt titration.
[2021-02-03] VITALS (53 sets, daily range): BP systolic 95–149; BP diastolic 38–99; PULSE 55–106; RESP 16–29; TEMP 36.1–36.9; O2SAT 93–100; BMI 396.4
--- NOTE | 2021-02-03 04:27 | PC.NURSE ---
Vent settings are as follows: AC, 50% FiO2, 26 R, 16 PEEP, 460 TV. Versed @ 0.9 mg/kg/hr. Fentanyl 90 mcg/hr. Pt remains off Levophed gtt. VSS. Arterial, Central lines patent. F/C draining to bedside with cloudy, yellow urine. Total output is 75 ml thus far. Oral care and suctioning administered. Pt turned Q2 hr. Pt has tolerated repositioning well this shift. Bed bath administered and linens changed. Pt has had 2 BMs this shift. No other concerns at this time. Family remains at bedside. Will continue to monitor.
[2021-02-03 06:39] LABS: ABG Base Excess -6.3 mmol/L (-2.4-2.3); ABG HCO3 20.8 mmhg (22.0-26.0); ABG Oxygen Saturation 97 % (90-100); ABG PCO2 47.2 mmhg (35.0-45.0); ABG PH 7.26 mmol/L (7.35-7.45); ABG PO2 112.4 mmhg (80-100); ABG TCO2 22.2 mmhg (23-27)
[2021-02-03 06:40] LABS: Allen's Test Patient Unable; Oxygen 50 %; PEEP 16; Source Left Radial; Tidal Volume 460; Vent Rate 26
[2021-02-03 06:58] LABS: Basophils % 0.2 % (0.1-2.0); Hematocrit 29.3 % (42.0-52.0); Hemoglobin 8.8 g/dL (14.1-18.0); Lymphocytes # 0.8 K/mm3 (0.7-4.5); Lymphocytes % 7.3 % (10-50); Mean Corpuscular HGB Conc 29.9 g/dL (31.8-35.4); Mean Corpuscular Hemoglobin 24.9 pg (27.0-31.2); Mean Corpuscular Volume 83.3 fl (80-94); Mean Platelet Volume 7.1 fl (7.4-10.4); Monocytes # 0.7 K/mm3 (0.1-1.0); Monocytes % 6.1 % (1.7-9.3); Neutrophils # 9.7 K/mm3 (1.8-7.8); Neutrophils % 86.4 % (37.0-80.0); Platelet Count 467 K/mm3 (142-424); Red Blood Count 3.51 M/mm3 (4.60-6.20); Red Cell Distribution Width 15.8 % (11.5-17.5); White Blood Count 11.3 K/mm3 (4.8-10.8)
--- NOTE | 2021-02-03 07:00 | XR_ITS ---
PROCEDURE: XR CHEST PORTABLE CLINICAL HISTORY: ETT and OG placement COMPARISON: CT CT ANGIO CHEST from 01/30/2021 CR XR CHEST PORTABLE from 01/31/2021 CR XR CHEST PORTABLE from 02/01/2021 CR XR CHEST PORTABLE from 02/02/2021 FINDINGS: 8:09 a.m.. Endotracheal tube tip is in good position 5 cm above the melly. Orogastric tube tip not visible on the film but through the GE junction. Left subclavian central venous line tip in the region of the SVC. Right upper right lower and left lower lobe pneumonia once again noted. There may be a small left effusion. No acute bony abnormalities. IMPRESSION: Overall no change in tubes and lines in diffuse bilateral alveolar disease with some sparing of the left upper lobe Dictated by: Clive Magana MD 02/03/2021 10:34 Clive Magana MD in [place] 02/03/2021 10:34
[2021-02-03 07:01] LABS: Chloride 108 mmol/L (98-107); Potassium 4.4 mmoL/L (3.5-5.1); Sodium 141 mmol/L (136-145)
[2021-02-03 07:04] LABS: Alanine Aminotransferase 85 U/L (12-78); Albumin Level 2.7 g/dl (3.5-5.0); Alkaline Phosphatase 82 U/L (38-126); Anion Gap 15.4 mEq/L (5-15); Aspartate Amino Transferase 61 U/L (17-59); Bilirubin,Total 0.3 mg/dl (0.2-1.3); Carbon Dioxide 22 mmol/L (22.0-30.0); Creatinine Clearance Estimated -5 mL/min (50-200); Estimated Glomerular Filt Rate 8 ml/min (>60); GFR (African American) 10 ML/MIN (>60); Globulin 2.8 g/dL (1.3-3.2); Total Protein,Serum 5.5 g/dl (6.3-8.2)
[2021-02-03 07:05] LABS: Calcium 8.1 mg/dl (8.4-10.2); Glucose 170 mg/dl (74-100)
[2021-02-03 07:21] LABS: Blood Urea Nitrogen 121 mg/dl (9-20)
[2021-02-03 07:24] LABS: MANUAL DIFFERENTIAL MANUAL DIFFERENTIAL (MANUAL DIFF)
--- NOTE | 2021-02-03 07:25 | PC.NURSE ---
notified of Critical lab values
--- NOTE | 2021-02-03 07:31 | HMH.ANESII ---
[facility] Anesthesia Record Part II Discharge Time: 12:16 Destination: Medical Surgical Department PACU nurse assessment reviewed?: Yes Patient Condition:: Good Anesthesia Complications:: None Swallowing reflex intact?: Yes Cyanosis?: No Blood Pressure: 149/99 Pulse Rate: 106 Temperature: 98.5 F Mental Status: Alert & Oriented Pain level:: 0 Nausea and/or vomitting:: None Intake, IV Amount: 0
--- NOTE | 2021-02-03 07:37 | HMH.ACPN2 ---
Internal Medicine - PN: Subj *Date: 02/03/21 *Time: 16:49 Interval history: Patient remained stable on mechanical ventilation. FiO2 has been weaned to 50% which patient is tolerated well. Levophed drip was discontinued overnight. Patient remains sedated with fentanyl and Versed. Patient is currently breathing with the vent at a rate of 26 Exam Vital signs and Labs for Last 24 Hours: Temp Pulse Resp BP Pulse Ox 98.5 F 106 H 26 H 149/99 H 99 02/03/21 07:32 02/03/21 07:32 02/03/21 07:16 02/03/21 07:32 02/03/21 07:16 Laboratory Results - last 24 hr 02/02/21 13:50: Sodium 140, Potassium 5.1, Chloride 108 H, Carbon Dioxide 21 L, Anion Gap 16.1 H, BUN 102 H*, Creatinine 5.60 H, Estimated Creat Clear 17, Estimated GFR 10 L*, Est GFR ( Amer) 12 L*, Glucose 205 H, Calcium 8.2 L 02/03/21 06:17: WBC 11.3 H D, RBC 3.51 L, Hgb 8.8 L, Hct 29.3 L, MCV 83.3, MCH 24.9 L, MCHC 29.9 L, RDW 15.8, Plt Count 467 H D, MPV 7.1 L, Neut % (Auto) 86.4 H, Lymph % (Auto) 7.3 L, [place] % (Auto) 6.1, Eos % (Auto) 0.0 L, Baso % (Auto) 0.2, Neut # (Auto) 9.7 H, Lymph # (Auto) 0.8, [place] # (Auto) 0.7, Eos # (Auto) 0.0, Baso # (Auto) 0.0 02/03/21 06:17: Sodium 141, Potassium 4.4, Chloride 108 H, Carbon Dioxide 22, Anion Gap 15.4 H, BUN 121 H*, Creatinine 6.80 H D, Estimated Creat Clear -5 L, Estimated GFR 8 L*, Est GFR ( Amer) 10 L*, Glucose 170 H, Calcium 8.1 L, Total Bilirubin 0.3, AST 61 H D, ALT 85 H, Alkaline Phosphatase 82, Total Protein 5.5 L, Albumin 2.7 L D, Globulin 2.8, Albumin/Globulin Ratio 1.0 L 02/03/21 07:00: Specimen Source Left radial, O2 % 50, ABG pH 7.26 L, ABG pCO2 47.2 H, ABG pO2 112.4 H, ABG HCO3 20.8 L, ABG Total CO2 22.2 L, ABG O2 Saturation 97, ABG Base Excess -6.3 L, Clive Test Patient unable, Vent Rate 26, Tidal Volume 460, PEEP 16 I & O for Last 24 hours: Intake & Output 01/31/21 02/01/21 02/02/21 02/03/21 11:59 11:59 11:59 11:59 Intake Total 50 / 50 6195.316 / 6240.316 2097.000 / 2097.000 1650 / 1650 Output Total 1400 / 1400 674 / 694 290 / 290 181 / 181 Balance -1350 / -1350 5521.316 / 5546.316 1807.000 / 4269.093 1988 / 1469 Weight 231 lb 9 oz 238 lb 2 oz 239 lb 8 oz 243 lb 1 oz Microbiology Reports for the Last 24 Hours: Microbiology 01/28/21 19:00 Blood Blood Culture - Final NO GROWTH AFTER 5 DAYS 01/28/21 19:00 Blood Blood Culture - Final NO GROWTH AFTER 5 DAYS Narrative: Patient is sedated and breathing with the vent. Breath sounds are distant with basilar crackles. Heart has a regular rate and rhythm. Abdomen is soft and obese. Lower extremities show some trace edema of the feet Assessment and Plan (1) Diffuse pulmonary alveolar hemorrhage Status: Acute Category: Medical Code(s): R04.89 - Hemorrhage from other sites in respiratory passages (2) Acute kidney injury Status: Acute Category: Medical Code(s): N17.9 - Acute kidney failure, unspecified (3) Pneumonia Status: Ruled-out Qualifiers: Pneumonia type: due to unspecified organism Laterality: bilateral Lung location: lower lobe of lung Qualified Code(s): J18.9 - Pneumonia, unspecified organism Category: Medical Code(s): J18.9 - Pneumonia, unspecified organism (4) Obesity (BMI 30-39.9) Status: Acute Category: Medical Code(s): E66.9 - Obesity, unspecified (5) Respiratory failure, acute Status: Acute Qualifiers: Respiratory failure complication: hypoxia Qualified Code(s): J96.01 - Acute respiratory failure with hypoxia Category: Medical Code(s): J96.00 - Acute respiratory failure, unspecified whether with hypoxia or hypercapnia (6) Obesity, Class II, BMI 35-39.9 Status: Acute Category: Medical Code(s): E66.9 - Obesity, unspecified (7) Nonischemic cardiomyopathy Status: Chronic Category: Medical Code(s): I42.8 - Other cardiomyopathies - Assessment and plan all Dx Assessment and Plan for all p
[2021-02-03 09:23] LABS: Lymphocytes % 9 % (10-50); Monocytes % 7 % (2-9); Neutrophils % 84 % (42-76); Total Cells Counted 100
[2021-02-03 09:24] LABS: Hypochromasia 2+; Platelet Estimate Normal
--- NOTE | 2021-02-03 09:42 | DIET.NUTRFU ---
Pt had poor toleration tube feedings of Pulmocare with high GRV, was not able to advance to goal rate. Renal function continues to decline and is critical. BP continues to be low, MAP>60mmHg. Na and K wnl. BG have been elevated- avg. 170. He had 2 BMs yesterday. Levophed and propofol weaned at this time. Nutritional care plan to initiate trophic feeds (15ml/h) today, and slowly advance to continuous enteral nutrition regimen as tolerated. New formula selected is low osmolality/low residue, moderate renal solute load formula. Water flushes slightly decreased as well. Recommend initiating continuous tube feeding regimen of Osmolite 1.2 at 15ml/h and advance by 10ml/h q 8h as tolerated to goal rate of 56ml/h. Water flushes of 150ml q 4h meet additional fluid needs not provided by formula. This regimen provides 1613kcal, 75g protein, 212g cho, 53g fat, and 1102ml free water (2000ml total fluids with formula+flushes). Will monitor pt tolerance, labs, fluids, meds to alter as indicated.
[2021-02-03 10:45] LABS: Microscopic, Urine URINE MICROSCOPIC (MICROSCOPIC)
[2021-02-03 10:55] LABS: Appearance,Urine CLEAR (Clear); Bilirubin,Urine Negative (Negative); Blood, Urine 3+ (Negative); Color,Urine YELLOW (Yellow); Glucose,Urine (UA) Negative (Negative); Ketones,Urine TRACE (Negative); Leukocyte Esterase,Urine Negative (Negative); Nitrate,Urine Negative (Negative); Protein,Urine 1+ (Negative); Specific Gravity, Urine >= 1.030 (1.005-1.030); Urobilinogen,Urine 0.2 EU/dl (0.2)
--- NOTE | 2021-02-03 12:54 | HMH.PULMPN ---
Internal Medicine - PN: Subj *Date: 02/03/21 *Time: 12:54 Interval history: No acute respiratory vents over the weekend. Patient oxygen requirements continued to improve Exam - Constitutional Constitutional:: Present: comfortable - HENMT Exam HENMT: Present: atraumatic - Eye Exam Eyes:: Present: eyelids normal - Neck Exam Neck:: Present: normal visual inspection - Respiratory Exam Respiratory:: Present: crackles. Absent: wheezing - Cardiovascular Exam Cardiac:: Present: S1, S2 - GI Exam GI:: Present: soft, obese - Skin Exam Skin: Present: warm, no rash - Neurological Exam Intubated and sedated. Appears comfortable. - Extremities Exam Extremities: Present: no cyanosis, no clubbing, edema Assessment and Plan (1) Diffuse pulmonary alveolar hemorrhage Status: Acute Category: Medical Code(s): R04.89 - Hemorrhage from other sites in respiratory passages (2) Acute kidney injury Status: Acute Category: Medical Code(s): N17.9 - Acute kidney failure, unspecified (3) Pneumonia Status: Ruled-out Qualifiers: Pneumonia type: due to unspecified organism Laterality: bilateral Lung location: lower lobe of lung Qualified Code(s): J18.9 - Pneumonia, unspecified organism Category: Medical Code(s): J18.9 - Pneumonia, unspecified organism (4) Obesity (BMI 30-39.9) Status: Acute Category: Medical Code(s): E66.9 - Obesity, unspecified (5) Respiratory failure, acute Status: Acute Qualifiers: Respiratory failure complication: hypoxia Qualified Code(s): J96.01 - Acute respiratory failure with hypoxia Category: Medical Code(s): J96.00 - Acute respiratory failure, unspecified whether with hypoxia or hypercapnia (6) Obesity, Class II, BMI 35-39.9 Status: Acute Category: Medical Code(s): E66.9 - Obesity, unspecified (7) Nonischemic cardiomyopathy Status: Chronic Category: Medical Code(s): I42.8 - Other cardiomyopathies - Assessment and plan all Dx Assessment and Plan for all problems:: #Acute hypoxic respiratory failure needing mechanical ventilation: #Hospital associated pneumonia: #Diffuse alveolar hemorrhage: Mr. Saul is a 75-year-old male greater than 43-tiit-uade smoking she last smoked around 10 to 12 years ago , congestive heart failure with EF of 30 to 40%, recently diagnosed with COVID-19 pneumonia around late December 2020 during which he was treated with remdesivir dexamethasone along with antibiotics and discharged on 3 L nasal cannula along with DuoNebs every 6 hours scheduled which he has not been using presented to hospital with worsening respiratory failure along with subjective fevers and chills and pulmonary was called for further management patient denies any worsening productive phlegm. Denies any worsening lower extremity swelling. CTA no evidence of PE however showed bilateral diffuse groundglass opacities with evidence of traction bronchiectasis. Neutrophilic leukocytosis with no evidence of eosinophilia. Bronchoscopy performed today diffuse alveolar hemorrhage and patient was initiated on stress dose steroids for a day followed by prednisone 80 mg daily. Plan: -Intubated and sedated appears comfortable. -Acute hypoxic respiratory: Infectious work-up so far negative. Patient respiratory status significantly improved after steroid initiation. Patient this morning on 50% FiO2 with 116 of PEEP saturating 100% on room air. Patient PEEP decreased to 14 this morning. We will continue wean PEEP as tolerated. Patient continued to be receiving 440 of tidal volume and a rate of 26. Patient this morning showed mixed respiratory and metabolic acidosis. CRP decreased to 28 -Afebrile. Hemodynamically stable, off pressor. Neutrophilic leukocytosis and thrombocytosis improved after stress dose steroids. Nasal MRSA screen negative and vancomycin was discontinued. Continue to receive cefepime and levofloxacin. -History of congestive heart w
--- NOTE | 2021-02-03 16:50 | HMH.DCSUM ---
General - General Admission date:: 01/28/21 Discharge date: 02/03/21 HPI HPI: 75-year-old male presented to the emergency department yesterday with 1 week of increasing weakness and shortness of breath. Patient was hospitalized here earlier in the month with COVID-19 pneumonia and acute respiratory failure. Patient had been improving since his illness until a week ago. He became concerned yesterday when his blood pressure was very low at home and he could not get his blood pressure to come up. He presented to the emergency department. Patient denies having fevers or chills. His cough has been dry and nonproductive. He denies chest pain and swelling. He denies orthopnea and hemoptysis. Patient has been using oxygen at home since his hospitalization for Covid and reports increased dyspnea on exertion. Work-up in the emergency department revealed an elevated white blood cell count, abnormal chest x-ray, elevated CRP and mild elevation of procalcitonin. Patient was admitted with a diagnosis of pneumonia and started on cefepime. Labs from the emergency department were also significant for acute kidney injury with creatinine of 2.1 up from 1.1 3 weeks ago. Shortly after admission and arrival to the [facility] floor patient was found to be hypotensive. Patient was given a 3 L fluid bolus and given a dose of vancomycin as well. This morning patient continues to feel short of breath with a congested sensation in the left upper chest. Hospital Course Hospital Course: Patient was admitted with an initial diagnosis of bilateral pneumonia. He was admitted on cefepime on the evening of January 28. Patient became hypotensive the evening of admission and vancomycin was added to his regimen. MRSA screen was ordered after that. Because of patient's recent hospitalization for COVID-19 in late December patient's antibiotic coverage was broadened and Levaquin was added to the cefepime and continued along with the vancomycin. Over the course of approximately 36 hours patient went from maintaining sats in the mid to high 90s on nasal cannula to maximum high flow nasal cannula of 40 L/min which was keeping his sats in the high 80s to low 90s. Patient would desaturate to the low 80s with ambulation. By January 31 high flow nasal cannula was not adequately oxygenating the patient when blood gas returned with a PaO2 of less than 30. Intubation was recommended and patient was intubated and placed on mechanical ventilator. Patient was transferred to ICU level of care. Patient went underwent subsequent bronchoscopy by Dr. Hensley which revealed findings consistent with diffuse alveolar hemorrhage. Autoimmune labs were ordered and patient was continued on mechanical ventilation. Patient was started on ivermectin due to the possibility of strongyloidiasis while strongyloidiasis antibody was pending. Patient was also given pulse dose steroids of Solu-Medrol 250 mg every 6 hours x 4 doses and then transition to prednisone 80 mg daily by G-tube. Patient's white blood cell count peaked at 38,000 and after initiation of steroids gradually trended down to 11,000 at the time of transfer. On the day of transfer patient remained intubated. Vent settings were AC,, tidal volume of 460, rate 26, FiO2 50%, PEEP of 12. Patient's last blood gas revealed mild acidosis with pH of 7.26. At the time of this dictation autoimmune tests for his diffuse alveolar hemorrhage are still pending. Patient had undergone CT scan of the chest which ruled out large pulmonary embolism but smaller pulmonary embolisms could not be ruled out. Patient was maintained on Lovenox at therapeutic dosing for the possibility of PE until his renal function precluded this. When patient was admitted he had acute kidney injury. Patient had a creatinine of 2.1 on admission but within 2 days his had returned to normal at 1.0. After intubation patient became hypotensive. He required Levophed for pressure support. The f
--- NOTE | 2021-02-03 17:40 | PC.NURSE ---
[facility] accepted patient, report called to Clarissa Rodas RN, [employer] contacted, sending [employer], ETA 21 minutes, house wrecker notified at this time.
[2021-02-03 18:32] LABS: Aldolase 21.3 U/L (3.3-10.3); Anti-Centromere B Antibodies <0.2 AI (0.0-0.9); Anti-DNA (DS) Ab Qn 2 IU/mL (0-9); Smith/RNP Antibodies <0.2 AI (0.0-0.9)
[2021-02-03 18:32] LABS: Aspergillus Antigen, BAL/Serum 0.06 Index (0.00-0.49)
[2021-02-03 19:41] LABS: Cytoplasmic (C-ANCA) <1:20 titer (Neg:<1:20)
[2021-02-03 23:56] LABS: Perinuclear (P-ANCA) <1:20 titer (Neg:<1:20)
[2021-02-05 17:15] LABS: Anti-Cyclic Citrullinated Pept 7 units (0-19)
[2021-02-06 22:07] LABS: Aspergillus flavus Negative (Neg:<1:1); Aspergillus fumigatus Negative (Neg:<1:1); Aspergillus niger Negative (Neg:<1:1)
[2021-02-07 12:22] LABS: Blastomyces Antibody Negative (Neg:<1:1)
[2021-02-07 18:13] LABS: Strongyloides IgG Antibody NEGATIVE
[2021-02-07 18:15] LABS: Antinuclear Antibodies (ANA) NEGATIVE
[2021-02-07 18:15] LABS: Sjogren's Anti-SS-A <0.2; Sjogren's Anti-SS-B <0.2
[2021-02-07 18:16] LABS: Antinuclear Antibodies (ANA) POSITIVE
== END 2021-02-03 18:20 | disposition short-term general hospital (02) | DRG 208 ==
LOC: ER 18:56 → 2ND 20:15
PROVIDERS: Internal Medicine Pulmonary Disease; Admitting Provider Family Medicine; Emergency Provider Emergency Medicine; PCP Family Medicine; Visit Provider Family Medicine
PROC: 0BDF8ZX Extraction of Right Lower Lung Lobe, Via Natural or Artificial Opening Endoscopic, Diagnostic (ICD-10-PCS; principal; 2021-01-31 10:30)
DX: J96.01 Acute respiratory failure with hypoxia (principal); J18.9 Pneumonia, unspecified organism; R04.89 Hemorrhage from other sites in respiratory passages; N17.9 Acute kidney failure, unspecified; I42.8 Other cardiomyopathies; E87.2 Acidosis; Z88.0 Allergy status to penicillin; I25.10 Atherosclerotic heart disease of native coronary artery without angina pectoris; K21.9 Gastro-esophageal reflux disease without esophagitis; E78.5 Hyperlipidemia, unspecified; I10 Essential (primary) hypertension; Z87.891 Personal history of nicotine dependence; Z86.16 Personal history of COVID-19; E66.9 Obesity, unspecified; I95.9 Hypotension, unspecified; Z99.81 Dependence on supplemental oxygen; I11.0 Hypertensive heart disease with heart failure; I50.9 Heart failure, unspecified; Z68.39 Body mass index [BMI] 39.0-39.9, adult; Y95 Nosocomial condition; I49.3 Ventricular premature depolarization; E87.5 Hyperkalemia
CPT/HCPCS: 31625; 36556; 36620; 31500; 94002; 94003 ×2; 36415; 71045; 71046; 71275; 80048; 80053; 80202; 81001; 82085; 82550; 82803; 82962; 83605; 83690; 83735; 83880; 84100; 84145; 84478; 84484; 85007; 85025; 85651; 86038; 86140; 86200; 86225; 86235; 86256; 86431; 86606; 86612; 86682; 87040; 87070; 87081; 87102; 87116; 87186; 87205; 87206; 87220; 87305; 87581; 87633; 87798; 88112; 88305; 89051; 93005; 93306; 94640; 96367; 99284; C1751; J1956; J2704; J3370; Q9967